=== PATIENT | male | born 1955 | race Two or more races ===

== ENCOUNTER 2017-12-12 20:45 | Inpatient (IN) | payer MEDICAID ==
[~2017-12-12] VITALS: Ht 182.9 cm; Wt 65.6 kg
[~2017-12-12 20:45] MED LIST: GABA300C10 OR; IBUP800T24 OR; INSLANTI SC; INSLISPI SC; LISI2.5T47 PO; SERT-274 PO; SIMV10TA84; TRAM50TA2 OR
[2017-12-12 22:17] LABS: Basophils # (auto) 0.1 uL; Basophils % (auto) 0.7 % (0.0-2.0); Lymphocytes # (auto) 1.2 uL; Red Cell Distribution Width 13.2 % (11.8-14.3); White Blood Cell 11.4 10^3/uL (4.4-10.8)
[2017-12-12 22:19] LABS: Eosinophils # (auto) 0.1 uL; Eosinophils % (auto) 1.2 % (0.0-7.0); Hematocrit 44.1 % (41.0-53.0); Hemoglobin 15.3 g/dL (13.5-17.5); Lymphocytes % (auto) 10.5 % (10.0-50.0); Mean Corpuscular Hemoglobin 34.3 pg (28.0-32.0); Mean Corpuscular Hgb Conc. 34.6 g/dL (32.0-36.0); Mean Corpuscular Volume 99.3 fL (80.0-100.0); Neutrophils % (auto) 78.6 % (37.0-80.0); Platelet Count (auto) 170 10^3/uL (140-450); Red Blood Cells 4.45 10^6/uL (4.5-5.90)
[2017-12-12 22:35] LABS: Albumin 3.5 g/dL (3.4-5.0); Potassium 3.8 mmol/L (3.5-5.1)
[2017-12-12 22:36] LABS: BUN/Creatinine Ratio 20.6
[2017-12-12 22:49] LABS: Bilirubin, Total 0.7 mg/dL (0.2-1.0); Total Protein 7.2 g/dL (6.4-8.2)
[2017-12-13] MEDS ORDERED: MORPHINE SULFATE 4 MG/ML SYR/VIAL IV ONE (00:30)
[2017-12-13] MEDS ORDERED: ONDANSETRON HCL 4 MG/2 ML VIAL IV ONE (00:30)
[2017-12-13] MEDS ORDERED: CEFTRIAXONE SODIUM 2 GM in D5W 5% 50 ML IV ONE (00:30)
[2017-12-13] MEDS ORDERED: SODIUM CHLORIDE 0.9% 1,000 ML IV ONE (00:30)
[2017-12-13] MEDS ORDERED: cefTRIAXone SOD 1,000 MG VL ONE (00:44)
[2017-12-13] MEDS ORDERED: CLINDAMYCIN 900MG IV 50 ML IV ONE (01:30)
[2017-12-13] MEDS ORDERED: DOCUSATE SOD 100 MG CAP PO PRN (01:45)
[2017-12-13] MEDS ORDERED: ONDANSETRON HCL 4 MG/2 ML VIAL IV PRN (01:45)
[2017-12-13] MEDS ORDERED: DEXTROSE (50%) 50ML SYRG IV PRN (01:45)
[2017-12-13] MEDS ORDERED: HYDROcodone-ACET 5/325MG TAB PO PRN (01:45)
[2017-12-13] MEDS ORDERED: TEMAZEPAM 15 MG CAP PO PRN ×2 (01:45→02:30)
[2017-12-13] MEDS ORDERED: ACETAMINOPHEN 325 MG TAB PO PRN ×2 (01:45→02:30)
[2017-12-13] MEDS ORDERED: MORPHINE SULFATE 4 MG/ML SYR/VIAL IV PRN (02:30)
[2017-12-13] MEDS ORDERED: NITROGLYCERIN 0.4 MG SL TAB SL PRN (02:30)
[2017-12-13] MEDS: ACCU-CHEK COMFORT CURVE STRIP VI SCH ×4 (05:56→23:22)
[2017-12-13] MEDS: InsuLIN REG 1unit/0.01ml Soln (100units/ml) SC SCH ×4 (05:56→23:23)
[2017-12-13] MEDS: HYDROcodone-ACET 5/325MG TAB PO PRN (07:49)
[2017-12-13] MEDS: SERTRALINE HCL 50 MG TAB PO SCH (07:49)
[2017-12-13] MEDS: ENOXAPARIN SOD 40 MG/0.4 ML SYRINGE SC SCH (07:49)
[2017-12-13] MEDS: FAMOTIDINE 20 MG TAB PO SCH ×2 (07:49→22:09)
[2017-12-13] MEDS: LISINOPRIL 5 MG TAB PO SCH (07:49)
[2017-12-13] MEDS ORDERED: FAMOTIDINE 20 MG TAB PO SCH (10:00)
[2017-12-13] MEDS ORDERED: LORazepam 2MG/ML-1ML VIAL IV ONE (14:00)
[2017-12-13] MEDS: CLINDAMYCIN 600MG IV 50 ML IV SCH ×2 (14:03→22:08)
[2017-12-13] MEDS: GABAPENTIN 300 MG CAP PO SCH ×2 (14:08→22:09)
[2017-12-13 14:54] LABS: INR 1.08 (0.9-1.15); Partial Thromboplastin Time 35.3 sec (23.78-33.04); Prothrombin Time 11.5 sec (9.27-12.13)
[2017-12-13] MEDS: ONDANSETRON HCL 4 MG/2 ML VIAL IV PRN ×2 (14:57→17:00)
[2017-12-13] MEDS: MORPHINE SULFATE 4 MG/ML SYR/VIAL IV PRN ×2 (14:57→17:00)
[2017-12-13 17:05] VITALS: BP 107/63
[2017-12-13] MEDS ORDERED: LIDOCAINE 1% HCL (LOCAL ANESTH.) INJ 20ML MDV ID ONE (17:15)
[2017-12-13 20:00] VITALS: BP 133/76
[2017-12-13 22:00] VITALS: BP 133/76
[2017-12-13] MEDS ORDERED: INSULIN LANTUS (GLARGINE) 1 /0.01ml (100units/ml) SC SCH (22:00)
[2017-12-13] MEDS: ATORVASTATIN 20 MG TAB PO SCH (22:09)
[2017-12-13 23:37] LABS: Urine Bacteria NONE SEEN /hpf (None Seen); Urine Blood Negative /uL (Negative); Urine Mucus FEW (None Seen); Urine Specific Gravity 1.021 (1.001-1.035); Urine WBC <1 /hpf (0 - 3)
[2017-12-14] VITALS (7 sets, daily range): BP systolic 107–123; BP diastolic 66–73
[2017-12-14] MEDS ORDERED: GABAPENTIN 100 MG CAP ONE (04:31)
[2017-12-14] MEDS: HYDROcodone-ACET 5/325MG TAB PO PRN ×2 (04:39→09:12)
[2017-12-14] MEDS: GABAPENTIN 300 MG CAP PO SCH ×3 (05:56→22:35)
[2017-12-14] MEDS: CLINDAMYCIN 600MG IV 50 ML IV SCH ×3 (05:56→22:35)
[2017-12-14] MEDS: ACCU-CHEK COMFORT CURVE STRIP VI SCH ×3 (05:57→17:46)
[2017-12-14] MEDS: InsuLIN REG 1unit/0.01ml Soln (100units/ml) SC SCH ×3 (06:00→17:46)
[2017-12-14 07:12] LABS: Basophils # (auto) 0.1 uL; Basophils % (auto) 0.7 % (0.0-2.0); Lymphocytes # (auto) 1.3 uL; Mean Corpuscular Hgb Conc. 34.7 g/dL (32.0-36.0); Monocytes # (auto) 1.2 uL; Neutrophils # (auto) 6.9 uL; White Blood Cell 9.5 10^3/uL (4.4-10.8)
[2017-12-14 07:13] LABS: Eosinophils # (auto) 0 uL; Eosinophils % (auto) 0.5 % (0.0-7.0); Hematocrit 40.3 % (41.0-53.0); Lymphocytes % (auto) 13.6 % (10.0-50.0); Mean Corpuscular Hemoglobin 34.1 pg (28.0-32.0); Mean Corpuscular Volume 98.3 fL (80.0-100.0); Monocytes % (auto) 12.9 % (0.0-12.0); Neutrophils % (auto) 72.3 % (37.0-80.0); Platelet Count (auto) 147 10^3/uL (140-450)
[2017-12-14 07:29] LABS: Albumin 2.4 g/dL (3.4-5.0); Calcium 7.6 mg/dL (8.5-10.1); Potassium 3.1 mmol/L (3.5-5.1)
[2017-12-14 07:32] LABS: Bilirubin, Total 0.8 mg/dL (0.2-1.0); Total Protein 5.7 g/dL (6.4-8.2)
[2017-12-14] MEDS ORDERED: LORazepam 2MG/ML-1ML VIAL IV ONE (08:00)
[2017-12-14] MEDS: cefTRIAXone 1GM/50ML D5W 50 ML IV SCH (09:11)
[2017-12-14] MEDS: SERTRALINE HCL 50 MG TAB PO SCH (10:00)
[2017-12-14] MEDS ORDERED: POTASSIUM CHL 20 Meq TABLET PO ONE (10:00)
[2017-12-14] MEDS: FAMOTIDINE 20 MG TAB PO SCH ×2 (10:52→22:38)
[2017-12-14] MEDS: LISINOPRIL 5 MG TAB PO SCH (10:55)
[2017-12-14] MEDS: ENOXAPARIN SOD 40 MG/0.4 ML SYRINGE SC SCH (10:59)
[2017-12-14] MEDS: ONDANSETRON HCL 4 MG/2 ML VIAL IV PRN ×2 (11:20→19:41)
[2017-12-14] MEDS: MORPHINE SULFATE 4 MG/ML SYR/VIAL IV PRN ×2 (11:20→19:42)
[2017-12-14] MEDS: DAKINS QUARTER STR 0.125% (NaHypochlorite) 473 ML TOPICAL SOL TOP SCH (12:00)
[2017-12-14] MEDS ORDERED: MORPHINE SULFATE 4 MG/ML SYR/VIAL IV ONE (13:45)
[2017-12-14] MEDS: ATORVASTATIN 20 MG TAB PO SCH (22:35)
[2017-12-14] MEDS: INSULIN LANTUS (GLARGINE) 1 /0.01ml (100units/ml) SC SCH (22:35)
[2017-12-15] VITALS (7 sets, daily range): BP systolic 104–142; BP diastolic 56–80
[2017-12-15] MEDS: InsuLIN REG 1unit/0.01ml Soln (100units/ml) SC SCH ×4 (01:03→17:33)
[2017-12-15] MEDS: ACCU-CHEK COMFORT CURVE STRIP VI SCH ×4 (01:03→17:30)
[2017-12-15] MEDS: MORPHINE SULFATE 4 MG/ML SYR/VIAL IV PRN ×4 (04:04→21:50)
[2017-12-15] MEDS: GABAPENTIN 300 MG CAP PO SCH ×3 (05:45→21:51)
[2017-12-15] MEDS: CLINDAMYCIN 600MG IV 50 ML IV SCH (05:45)
[2017-12-15] MEDS: SERTRALINE HCL 50 MG TAB PO SCH ×2 (10:00→10:11)
[2017-12-15] MEDS: FAMOTIDINE 20 MG TAB PO SCH ×2 (10:09→21:51)
[2017-12-15] MEDS: LISINOPRIL 5 MG TAB PO SCH (10:10)
[2017-12-15] MEDS: ENOXAPARIN SOD 40 MG/0.4 ML SYRINGE SC SCH (10:10)
[2017-12-15] MEDS: cefTRIAXone 1GM/50ML D5W 50 ML IV SCH (10:11)
[2017-12-15 10:12] LABS: BUN/Creatinine Ratio 23.5; Calcium 8.6 mg/dL (8.5-10.1)
[2017-12-15 10:25] LABS: Potassium 3.5 mmol/L (3.5-5.1)
[2017-12-15] MEDS ORDERED: LIDOCAINE 5% TOPICAL PATCH TOP ONE (10:30)
[2017-12-15] MEDS ORDERED: SODIUM CHLORIDE 0.9% 1,000 ML IV ONE (10:30)
[2017-12-15] MEDS ORDERED: CYCLOBENZAPRINE HCL 10 MG TAB PO PRN (10:30)
[2017-12-15] MEDS ORDERED: HYDROmorphone HCL 2 MG/ML VL IV ONE (11:00)
[2017-12-15] MEDS ORDERED: LEVOFLOXACIN 750MG 150 ML IV ONE (11:00)
[2017-12-15] MEDS: DAKINS QUARTER STR 0.125% (NaHypochlorite) 473 ML TOPICAL SOL TOP SCH (13:50)
[2017-12-15] MEDS: ATORVASTATIN 20 MG TAB PO SCH (21:50)
[2017-12-15] MEDS: INSULIN LANTUS (GLARGINE) 1 /0.01ml (100units/ml) SC SCH (21:51)
[2017-12-16] MEDS: ACCU-CHEK COMFORT CURVE STRIP VI SCH ×5 (00:10→22:43)
[2017-12-16] MEDS: MORPHINE SULFATE 4 MG/ML SYR/VIAL IV PRN ×2 (03:29→09:21)
[2017-12-16 05:00] VITALS: BP 142/80
[2017-12-16] MEDS: InsuLIN REG 1unit/0.01ml Soln (100units/ml) SC SCH ×5 (06:00→22:43)
[2017-12-16] MEDS: GABAPENTIN 300 MG CAP PO SCH ×3 (07:39→22:42)
[2017-12-16 08:23] VITALS: BP 152/77
[2017-12-16] MEDS: LEVOFLOXACIN 750MG 150 ML IV SCH (09:23)
[2017-12-16] MEDS: FAMOTIDINE 20 MG TAB PO SCH ×2 (09:23→22:42)
[2017-12-16] MEDS: DAKINS QUARTER STR 0.125% (NaHypochlorite) 473 ML TOPICAL SOL TOP SCH (09:24)
[2017-12-16] MEDS: ENOXAPARIN SOD 40 MG/0.4 ML SYRINGE SC SCH (09:24)
[2017-12-16] MEDS: LIDOCAINE 5% TOPICAL PATCH TOP SCH (09:24)
[2017-12-16] MEDS ORDERED: LISINOPRIL 5 MG TAB PO SCH (10:00)
[2017-12-16] MEDS: HYDROmorphone HCL 2 MG/ML VL IV PRN ×3 (11:16→22:44)
[2017-12-16] MEDS ORDERED: JANUMET PO SCH (12:00)
[2017-12-16 13:00] VITALS: BP 136/73
[2017-12-16 16:46] VITALS: BP 153/77
[2017-12-16 22:00] VITALS: BP 153/82
[2017-12-16] MEDS: ATORVASTATIN 20 MG TAB PO SCH (22:42)
[2017-12-16] MEDS: INSULIN LANTUS (GLARGINE) 1 /0.01ml (100units/ml) SC SCH (22:43)
[2017-12-17] MEDS: HYDROmorphone HCL 2 MG/ML VL IV PRN ×6 (03:56→21:38)
[2017-12-17 05:42] VITALS: BP 137/77
[2017-12-17] MEDS: InsuLIN REG 1unit/0.01ml Soln (100units/ml) SC SCH ×4 (05:55→23:31)
[2017-12-17] MEDS: GABAPENTIN 300 MG CAP PO SCH ×3 (05:55→21:37)
[2017-12-17] MEDS: ACCU-CHEK COMFORT CURVE STRIP VI SCH ×4 (05:55→23:30)
[2017-12-17 08:56] VITALS: BP 134/74
[2017-12-17] MEDS: SERTRALINE HCL 50 MG TAB PO SCH ×2 (10:00→10:10)
[2017-12-17] MEDS: ENOXAPARIN SOD 40 MG/0.4 ML SYRINGE SC SCH (10:08)
[2017-12-17] MEDS: LISINOPRIL 5 MG TAB PO SCH (10:10)
[2017-12-17] MEDS: DAKINS QUARTER STR 0.125% (NaHypochlorite) 473 ML TOPICAL SOL TOP SCH (10:10)
[2017-12-17] MEDS: FAMOTIDINE 20 MG TAB PO SCH ×2 (10:10→21:37)
[2017-12-17] MEDS: LIDOCAINE 5% TOPICAL PATCH TOP SCH (10:10)
[2017-12-17] MEDS: LEVOFLOXACIN 750MG 150 ML IV SCH (10:10)
[2017-12-17 13:12] VITALS: BP 141/75
[2017-12-17 16:55] VITALS: BP 127/80
[2017-12-17] MEDS: ATORVASTATIN 20 MG TAB PO SCH (21:37)
[2017-12-17 22:05] VITALS: BP 139/77
[2017-12-17] MEDS: INSULIN LANTUS (GLARGINE) 1 /0.01ml (100units/ml) SC SCH (23:30)
[2017-12-18] MEDS: HYDROmorphone HCL 2 MG/ML VL IV PRN ×4 (01:51→17:36)
[2017-12-18 05:57] VITALS: BP 107/58
[2017-12-18] MEDS: InsuLIN REG 1unit/0.01ml Soln (100units/ml) SC SCH ×4 (06:08→23:52)
[2017-12-18] MEDS: GABAPENTIN 300 MG CAP PO SCH ×3 (06:08→21:24)
[2017-12-18] MEDS: ACCU-CHEK COMFORT CURVE STRIP VI SCH ×4 (06:08→23:52)
[2017-12-18 09:42] VITALS: BP 98/64
[2017-12-18] MEDS: SERTRALINE HCL 50 MG TAB PO SCH (10:00)
[2017-12-18] MEDS: DAKINS QUARTER STR 0.125% (NaHypochlorite) 473 ML TOPICAL SOL TOP SCH (10:00)
[2017-12-18] MEDS: LEVOFLOXACIN 750MG 150 ML IV SCH (10:29)
[2017-12-18] MEDS: LIDOCAINE 5% TOPICAL PATCH TOP SCH (10:29)
[2017-12-18] MEDS: ENOXAPARIN SOD 40 MG/0.4 ML SYRINGE SC SCH (10:29)
[2017-12-18] MEDS: LISINOPRIL 5 MG TAB PO SCH (10:30)
[2017-12-18] MEDS: FAMOTIDINE 20 MG TAB PO SCH ×2 (10:31→21:24)
[2017-12-18] MEDS ORDERED: KETOROLAC TROMETH 30 MG/ML 1ML VIAL IV ONE (13:00)
[2017-12-18] MEDS ORDERED: HYDROcodone-ACET 5/325MG TAB PO PRN (13:00)
[2017-12-18 15:50] LABS: Free T3 2.66 pg/mL (2.3-4.2); Free T4 (Free Thyroxine) 1.23 ng/dL (0.89-1.76)
[2017-12-18 17:30] VITALS: BP 134/73
[2017-12-18] MEDS: ATORVASTATIN 20 MG TAB PO SCH (21:24)
[2017-12-18] MEDS: INSULIN LANTUS (GLARGINE) 1 /0.01ml (100units/ml) SC SCH (21:33)
[2017-12-18 22:15] VITALS: BP 144/73
[2017-12-18] MEDS: KETOROLAC TROMETH 30 MG/ML 1ML VIAL IV PRN (23:51)
[2017-12-19 05:03] VITALS: BP 131/70
[2017-12-19] MEDS: ACCU-CHEK COMFORT CURVE STRIP VI SCH ×3 (05:25→18:00)
[2017-12-19] MEDS: InsuLIN REG 1unit/0.01ml Soln (100units/ml) SC SCH ×3 (05:25→18:00)
[2017-12-19] MEDS: GABAPENTIN 300 MG CAP PO SCH ×2 (05:29→14:00)
[2017-12-19] MEDS: HYDROmorphone HCL 2 MG/ML VL IV PRN ×2 (05:58→12:25)
[2017-12-19 07:47] LABS: Albumin 2.1 g/dL (3.4-5.0); Calcium 8.6 mg/dL (8.5-10.1); Potassium 3.7 mmol/L (3.5-5.1)
[2017-12-19 07:51] LABS: Bilirubin, Total 0.6 mg/dL (0.2-1.0); Total Protein 6.4 g/dL (6.4-8.2)
[2017-12-19 08:49] VITALS: BP 135/78
[2017-12-19] MEDS: KETOROLAC TROMETH 30 MG/ML 1ML VIAL IV PRN ×2 (09:26→15:25)
[2017-12-19] MEDS ORDERED: LEVO750T64 PO (09:56)
[2017-12-19] MEDS: DAKINS QUARTER STR 0.125% (NaHypochlorite) 473 ML TOPICAL SOL TOP SCH (10:00)
[2017-12-19] MEDS: LIDOCAINE 5% TOPICAL PATCH TOP SCH (10:00)
[2017-12-19] MEDS ORDERED: ENOXAPARIN SOD 40 MG/0.4 ML SYRINGE SC SCH (10:00)
[2017-12-19] MEDS: SERTRALINE HCL 50 MG TAB PO SCH (10:00)
[2017-12-19] MEDS: LEVOFLOXACIN 750MG 150 ML IV SCH (10:22)
[2017-12-19] MEDS: LISINOPRIL 5 MG TAB PO SCH (10:23)
[2017-12-19] MEDS: FAMOTIDINE 20 MG TAB PO SCH (10:24)
[2017-12-19 11:37] VITALS: BP 135/78
[2017-12-19 16:36] VITALS: BP 125/68
== END 2017-12-19 19:30 | disposition home health service (06) | DRG 380 ==
LOC: ER 20:45 → OVERFLOW 20:46 → CENTRAL 12-13 15:45
PROVIDERS: ADMIT Nurse Practitioner; ATTEND Internal Medicine
PROC: 0HBRXZZ Excision of Toe Nail, External Approach (ICD-10-PCS; principal; 2017-12-13)
PROC: 0JBQ0ZZ Excision of Right Foot Subcutaneous Tissue and Fascia, Open Approach (ICD-10-PCS; 2017-12-13)
DX: E11.621 Type 2 diabetes mellitus with foot ulcer (principal); L97.519 Non-pressure chronic ulcer of other part of right foot with unspecified severity; E11.21 Type 2 diabetes mellitus with diabetic nephropathy; E11.42 Type 2 diabetes mellitus with diabetic polyneuropathy; L03.115 Cellulitis of right lower limb; E11.22 Type 2 diabetes mellitus with diabetic chronic kidney disease; F41.9 Anxiety disorder, unspecified; F15.90 Other stimulant use, unspecified, uncomplicated; R19.7 Diarrhea, unspecified; N18.2 Chronic kidney disease, stage 2 (mild); N28.9 Disorder of kidney and ureter, unspecified; K57.90 Diverticulosis of intestine, part unspecified, without perforation or abscess without bleeding; E78.5 Hyperlipidemia, unspecified; F17.210 Nicotine dependence, cigarettes, uncomplicated; I12.9 Hypertensive chronic kidney disease with stage 1 through stage 4 chronic kidney disease, or unspecified chronic kidney disease; K57.30 Diverticulosis of large intestine without perforation or abscess without bleeding; M20.10 Hallux valgus (acquired), unspecified foot; M21.40 Flat foot [pes planus] (acquired), unspecified foot; M47.896 Other spondylosis, lumbar region; M48.061 Spinal stenosis, lumbar region without neurogenic claudication; N40.0 Benign prostatic hyperplasia without lower urinary tract symptoms; Z53.20 Procedure and treatment not carried out because of patient's decision for unspecified reasons; Z82.49 Family history of ischemic heart disease and other diseases of the circulatory system; Z83.3 Family history of diabetes mellitus; Z79.4 Long term (current) use of insulin; Z79.899 Other long term (current) drug therapy
CPT/HCPCS: 36415; 72148; 73630; 73700; 74177; 78315; 80048; 80053; 81001; 82962; 83036; 84439; 84443; 84481; 85025; 85610; 85652; 85730; 87077; 87186; 87205; 87493; 93925; 96361; 96365; 96375; 97110; 97530; G0378; J0696; J1815; J1885; J1956; J2001; J2405; J3490; J7060

== ENCOUNTER 2018-01-15 23:47 | Emergency (ER) | payer MEDICAID ==
[~2018-01-15] VITALS: Ht 185.4 cm; Wt 65.8 kg
[~2018-01-15 23:47] MED LIST changes: +LEVO750T64 PO; -TRAM50TA2 OR
[2018-01-16 00:40] LABS: Basophils # (auto) 0.1 uL; Basophils % (auto) 0.7 % (0.0-2.0); Eosinophils # (auto) 0.4 uL; Eosinophils % (auto) 4.7 % (0.0-7.0); Hematocrit 46.9 % (41.0-53.0); Hemoglobin 15.6 g/dL (13.5-17.5); Lymphocytes # (auto) 1.6 uL; Lymphocytes % (auto) 19.9 % (10.0-50.0); Mean Corpuscular Hemoglobin 33.1 pg (28.0-32.0); Mean Corpuscular Hgb Conc. 33.2 g/dL (32.0-36.0); Mean Corpuscular Volume 99.8 fL (80.0-100.0); Monocytes # (auto) 0.8 uL; Monocytes % (auto) 9.9 % (0.0-12.0); Neutrophils # (auto) 5.2 uL; Neutrophils % (auto) 64.8 % (37.0-80.0); Nucleated Red Blood Cells % 0.1 %; Platelet Count (auto) 160 10^3/uL (140-450); Red Cell Distribution Width 14.1 % (11.8-14.3)
[2018-01-16 00:59] LABS: Albumin 3.2 g/dL (3.4-5.0); BUN/Creatinine Ratio 26.7; Calcium 8.9 mg/dL (8.5-10.1); Potassium 4.3 mmol/L (3.5-5.1)
[2018-01-16 01:01] LABS: Bilirubin, Total 1.1 mg/dL (0.2-1.0); Total Protein 7.7 g/dL (6.4-8.2)
[2018-01-16] MEDS: HYDROcodone-ACET 10/325MG TAB PO ONE (03:35)
[2018-01-16 04:20] VITALS: BP 147/86
== END 2018-01-16 05:54 | disposition home or self-care (01) ==
LOC: ER 23:48
DX: M47.27 Other spondylosis with radiculopathy, lumbosacral region (principal); E11.621 Type 2 diabetes mellitus with foot ulcer; I10 Essential (primary) hypertension; M19.90 Unspecified osteoarthritis, unspecified site; F17.210 Nicotine dependence, cigarettes, uncomplicated; F12.10 Cannabis abuse, uncomplicated; F15.10 Other stimulant abuse, uncomplicated; I73.9 Peripheral vascular disease, unspecified; Z79.4 Long term (current) use of insulin; Z79.899 Other long term (current) drug therapy
CPT/HCPCS: 36415; 73700; 80053; 85025

== ENCOUNTER 2018-10-14 12:01 | Emergency (ER) | payer MEDICAID ==
[~2018-10-14] VITALS: Ht 175.3 cm; Wt 63.5 kg
[~2018-10-14 12:01] MED LIST changes: -IBUP800T24 OR; -LEVO750T64 PO; -LISI2.5T47 PO; -SIMV10TA84
[2018-10-14] MEDS ORDERED: SODIUM CHLORIDE 0.9% 500 ML IVB ONE (12:07)
[2018-10-14] MEDS ORDERED: MORPHINE SULFATE 4 MG/ML SYR/VIAL IV ONE (12:15)
[2018-10-14] MEDS ORDERED: PROCHLORPERAZINE EDISYLATE 5 MG/ML 2ML VIAL IV ONE (12:15)
[2018-10-14 12:54] LABS: Basophils # (auto) 0.1 uL; Eosinophils # (auto) 0.3 uL; Eosinophils % (auto) 3.9 % (0.0-7.0); Hemoglobin 13.1 g/dL (13.5-17.5); Lymphocytes # (auto) 1.5 uL; Monocytes # (auto) 0.7 uL
[2018-10-14 12:56] LABS: Basophils % (auto) 0.7 % (0.0-2.0); Hematocrit 37.6 % (41.0-53.0); Lymphocytes % (auto) 16.9 % (10.0-50.0); Mean Corpuscular Hgb Conc. 34.8 g/dL (32.0-36.0); Mean Corpuscular Volume 100.5 fL (80.0-100.0); Neutrophils % (auto) 70.5 % (37.0-80.0); Platelet Count (auto) 137 10^3/uL (140-450); Red Blood Cells 3.74 10^6/uL (4.5-5.90); White Blood Cell 8.6 10^3/uL (4.4-10.8)
[2018-10-14 13:20] LABS: Albumin 3.5 g/dL (3.4-5.0); Calcium 9.4 mg/dL (8.5-10.1); Magnesium 2.1 mg/dL (1.6-2.6); Potassium 3.7 mmol/L (3.5-5.1)
[2018-10-14 13:23] LABS: BUN/Creatinine Ratio 20.4
[2018-10-14 13:25] LABS: Bilirubin, Total 0.7 mg/dL (0.2-1.0); Total Protein 7.4 g/dL (6.4-8.2)
[2018-10-14 14:03] VITALS: BP 123/68
== END 2018-10-14 14:34 | disposition home or self-care (01) ==
LOC: ER 12:01 → EDBD 12:01 → ER 14:34
DX: K52.9 Noninfective gastroenteritis and colitis, unspecified (principal); I10 Essential (primary) hypertension; E11.9 Type 2 diabetes mellitus without complications; F17.210 Nicotine dependence, cigarettes, uncomplicated; Z79.4 Long term (current) use of insulin; Z79.899 Other long term (current) drug therapy
CPT/HCPCS: 36415; 74176; 80053; 83690; 83735; 85025; 94761; 96374; 96375; 99284; J0780; J2270

== ENCOUNTER 2018-11-21 09:12 | Inpatient (IN) | payer MEDICAID ==
[~2018-11-21] VITALS: Ht 182.9 cm; Wt 70.2 kg
[2018-11-21] MEDS ORDERED: SODIUM CHLORIDE 0.9% 1,000 ML IV ONE (11:08)
[2018-11-21] MEDS ORDERED: ASPirin 81 mg TAB PO ONE (11:15)
[2018-11-21 11:34] LABS: Basophils # (auto) 0.1 uL; Eosinophils # (auto) 0.6 uL; Eosinophils % (auto) 5.8 % (0.0-7.0); Hemoglobin 13.9 g/dL (13.5-17.5); Lymphocytes # (auto) 2.8 uL; Lymphocytes % (auto) 26.7 % (10.0-50.0); Mean Corpuscular Hemoglobin 34.5 pg (28.0-32.0); Mean Corpuscular Hgb Conc. 35.5 g/dL (32.0-36.0); Mean Corpuscular Volume 97.1 fL (80.0-100.0); Monocytes # (auto) 0.7 uL; Monocytes % (auto) 6.9 % (0.0-12.0); Neutrophils # (auto) 6.2 uL; Neutrophils % (auto) 59.6 % (37.0-80.0); Platelet Count (auto) 158 10^3/uL (140-450); Red Blood Cells 4.02 10^6/uL (4.5-5.90); Red Cell Distribution Width 12.8 % (11.8-14.3); White Blood Cell 10.4 10^3/uL (4.4-10.8)
[2018-11-21 11:47] LABS: Albumin 3.5 g/dL (3.4-5.0); Anion Gap 4 (5-15); Blood Urea Nitrogen 17 mg/dL (7-18); Calcium 9.3 mg/dL (8.5-10.1); Carbon Dioxide 24 mmol/L (21-32); Chloride 112 mmol/L (98-107); Glucose 264 mg/dL (74-106); Magnesium 1.9 mg/dL (1.6-2.6); Potassium 4.4 mmol/L (3.5-5.1); Sodium 140 mmol/L (136-145)
[2018-11-21 11:53] LABS: Alanine Aminotransferase 21 U/L (16-61); Alkaline Phosphatase 205 U/L (45-117); Aspartate Aminotransferase 18 U/L (15-37); BUN/Creatinine Ratio 19.3; Bilirubin, Total 0.5 mg/dL (0.2-1.0); GFR African American 112 mL/min; GFR Non-African American 93 mL/min; Total Protein 7.6 g/dL (6.4-8.2)
[2018-11-21 12:58] LABS: Urine Bacteria FEW /hpf (None Seen); Urine Blood 1+ /uL (Negative); Urine Specific Gravity 1.015 (1.001-1.035); Urine WBC <1 /hpf (0 - 3)
[2018-11-21] MEDS ORDERED: LORazepam 0.5 MG TAB PO ONE (14:30)
[2018-11-21] MEDS ORDERED: cefTRIAXone 1GM/50ML D5W 50 ML IV ONE (15:30)
[2018-11-21] MEDS ORDERED: IOHEXOL 350 MG/ML 100ML IJ ONE (15:34)
[2018-11-21] MEDS ORDERED: SPIRONOLACTONE 25 MG TAB PO ONE (15:45)
[2018-11-21] MEDS ORDERED: FUROSEMIDE 40 MG/4 ML VIAL IV ONE (15:45)
[2018-11-21] MEDS ORDERED: NITROGLYCERIN 0.4 MG SL TAB SL PRN (16:45)
[2018-11-21] MEDS ORDERED: hydrALAZINE HCL 20 MG/ML VL IV PRN (16:45)
[2018-11-21] MEDS ORDERED: ONDANSETRON HCL 4 MG/2 ML VIAL IV PRN (16:45)
[2018-11-21] MEDS ORDERED: MORPHINE SULF INJ 2 MG/ML SYRINGE 1ML IV PRN (16:45)
[2018-11-21] MEDS ORDERED: ACETAMINOPHEN 500 MG TAB PO PRN (16:45)
[2018-11-21] MEDS ORDERED: DEXTROSE (50%) 50ML SYRG IV PRN (17:00)
[2018-11-21] MEDS: ACCU-CHEK COMFORT CURVE STRIP VI SCH ×2 (18:03→22:11)
[2018-11-21] MEDS: InsuLIN REG 1unit/0.01ml Soln (100units/ml) SC SCH ×2 (18:08→22:28)
--- NOTE | 2018-11-21 18:25 | NUR ---
PT ADMITTED TO FLOOR VIA WHEEL CHAIR FROM [facility] PT REPORTS 8/10 CHRONIC PAIN IN BACK FROM PREVIOUS INJURY. PRN PAIN MEDS GIVEN. PT A AND O X 4 AND AMBULATORY. PT REPORTS LBM WAS 11/20/18. PT ORIENTED TO UNIT AND CALL LIGHT. VITALS: HR 79, 02 99, RR 18, T 98.3, BP 139/91. WILL CONTINUE TO MONITOR.
[2018-11-21] MEDS: HYDROcodone-ACET 5/325MG TAB PO PRN (18:39)
[2018-11-21 18:45] VITALS: BP 139/91
[2018-11-21] MEDS: IPRATROPIUM BROM 0.5 MG/2.5ML INH SOL NEB SCH (18:54)
[2018-11-21] MEDS: ALBUTEROL SULF 2.5 MG/0.5ML(0.5%) NEB SOLN NEB SCH (18:54)
[2018-11-21 19:27] VITALS: BP 139/91
--- NOTE | 2018-11-21 19:30 | NUR ---
Opening Shift Note Assumed care of patient. Patient awake and alert. No S/S of distress/SOB or pain. Instructed on POC and to call for assist PRN, will continue to monitor for changes. Bed locked in lowest position and bed rails up x2. Call light within reach.
[2018-11-21] MEDS ORDERED: HYDR-4833 PO (20:33)
[2018-11-21 20:36] VITALS: BP 139/91
[2018-11-21 22:00] VITALS: BP 108/68
[2018-11-21] MEDS: GABAPENTIN 300 MG CAP PO SCH (22:08)
[2018-11-21] MEDS: METOPROLOL TARTRATE 25 MG TAB PO SCH (22:09)
[2018-11-21] MEDS: INSULIN LANTUS (GLARGINE) 1 /0.01ml (100units/ml) SC SCH (22:29)
[2018-11-21] MEDS: MORPHINE SULF INJ 2 MG/ML SYRINGE 1ML IV PRN (22:30)
[2018-11-22] MEDS: HYDROcodone-ACET 5/325MG TAB PO PRN ×2 (04:27→10:37)
[2018-11-22 05:00] VITALS: BP 114/61
[2018-11-22 05:35] LABS: Eosinophils # (auto) 0.6 uL
[2018-11-22 05:36] LABS: Basophils # (auto) 0.2 uL; Basophils % (auto) 1.7 % (0.0-2.0); Eosinophils % (auto) 6.4 % (0.0-7.0); Hematocrit 35.9 % (41.0-53.0); Lymphocytes # (auto) 3.5 uL; Lymphocytes % (auto) 37.3 % (10.0-50.0); Mean Corpuscular Hemoglobin 34.8 pg (28.0-32.0); Mean Corpuscular Hgb Conc. 36.2 g/dL (32.0-36.0); Monocytes # (auto) 0.9 uL; Monocytes % (auto) 9.4 % (0.0-12.0); Neutrophils # (auto) 4.2 uL; Neutrophils % (auto) 45.2 % (37.0-80.0); Nucleated Red Blood Cells % 0.1 %; Platelet Count (auto) 164 10^3/uL (140-450); Red Blood Cells 3.74 10^6/uL (4.5-5.90); Red Cell Distribution Width 13.1 % (11.8-14.3); White Blood Cell 9.3 10^3/uL (4.4-10.8)
[2018-11-22 05:45] LABS: Calcium 8.7 mg/dL (8.5-10.1); Potassium 3.5 mmol/L (3.5-5.1)
[2018-11-22 05:48] LABS: BUN/Creatinine Ratio 22.8
[2018-11-22] MEDS: ACCU-CHEK COMFORT CURVE STRIP VI SCH ×4 (06:28→21:48)
[2018-11-22] MEDS: InsuLIN REG 1unit/0.01ml Soln (100units/ml) SC SCH ×4 (06:28→21:49)
[2018-11-22] MEDS: INSULIN LANTUS (GLARGINE) 1 /0.01ml (100units/ml) SC SCH ×2 (06:29→21:49)
[2018-11-22] MEDS: ALBUTEROL SULF 2.5 MG/0.5ML(0.5%) NEB SOLN NEB SCH ×3 (07:27→19:03)
[2018-11-22] MEDS: IPRATROPIUM BROM 0.5 MG/2.5ML INH SOL NEB SCH ×3 (07:27→19:03)
[2018-11-22 09:00] VITALS: BP 111/85
[2018-11-22] MEDS ORDERED: FUROSEMIDE 20 MG/2 ML VIAL IV SCH (10:00)
[2018-11-22] MEDS: cefTRIAXone 1GM/50ML D5W 50 ML IV SCH (10:33)
[2018-11-22] MEDS: FAMOTIDINE 20 MG TAB PO SCH (10:36)
[2018-11-22] MEDS: GABAPENTIN 300 MG CAP PO SCH ×2 (10:36→21:15)
[2018-11-22] MEDS: LISINOPRIL 10 MG TAB PO SCH (10:37)
[2018-11-22] MEDS: METOPROLOL TARTRATE 25 MG TAB PO SCH ×2 (10:38→21:15)
[2018-11-22 10:58] LABS: Cholesterol 126 mg/dL (< 200); HDL Cholesterol 29 mg/dL (40-59); LDL Cholesterol 82 mg/dL (< 100); Triglycerides 151 mg/dL (< 150)
[2018-11-22] MEDS: AZITHROMYCIN 500MG/ 250ML 250 ML IV SCH (11:14)
[2018-11-22] MEDS: FUROSEMIDE 20 MG/2 ML VIAL IV SCH (11:14)
[2018-11-22] MEDS ORDERED: ALPRAZolam 0.5 MG TAB PO ONE (11:45)
--- NOTE | 2018-11-22 11:55 | NUR ---
PATIENT BROUGHT IN HOME MEDICATIONS, DR ARZOLA AT BEDSIDE REVIEWING THEM. ASKED PT IF WE COULD BRING HOME MEDS TO PHARMACY PER HOSPITAL PROTOCOL, PT REFUSED. PT ANXIOUS, NEW ORDER FOR 0.5 MG XANAX. PT REPORTS HE WANTS A NEW BLOWER AND COMPRESSOR ASSEMBLER OUT PATIENT BECAUSE SHE DOESN'T TELL HIM ANY OF HIS RESULTS. DR ARZOLA INFORMED PT HE CAN ALWAYS REQUEST A NEW BLOWER AND COMPRESSOR ASSEMBLER. REPORTS TO FOLLOW UP WITH DR GRIGGS TOMORROW AND PT IS DISCHARGED.
[2018-11-22 13:00] VITALS: BP 128/71
--- NOTE | 2018-11-22 13:00 | NUR ---
DR PECK FROM [facility] SAW PATIENT. NOTIFIED MD DR ARZOLA IS HAVING PATIENT FOLLOW UP OUT PATIENT WITH DR GRIGGS AND PT IS DISCHARGED. AWARE. ASKED DR PECK IF HE COULD READ ECHO. REPORTS DR TRIANA WILL BE READING THE ECHOS AND THE SYSTEM HAS BEEN DOWN.
--- NOTE | 2018-11-22 14:01 | NUR ---
Called Ivania to see if she could patient info on behavioral health, no answer, left message. Awaiting call back.
[2018-11-22 14:15] VITALS: BP 111/85
--- NOTE | 2018-11-22 14:41 | NUR ---
CALLED PBX AND PAGED DR ARZOLA. REPORTED HE WAS GOING TO WRITE PRESCRIPTION FOR XANAX AND AZITHROMYCIN, BUT NO SCRIPT IN DC PAPERWORK.
--- NOTE | 2018-11-22 16:18 | NUR ---
SPOKE WITH MAIK CHARGE NURSE, SHE REPORTS PATIENT IS REFUSING TO LEAVE BECAUSE, "HE DOESN'T KNOW WHAT'S WRONG WITH HIS HEART." WILL GIVE PRN ANXIETY AND PAIN MEDS. PT REPORTS NO SOB, LAST VITALS WNL. PT REFEREED BACK TO DR BARONE, HIS OWN FOUNDATION ENGINEER. DR ARZOLA CALLED BACK. HE REPORTS HE GAVE PRESCRIPTION TO JULIETH WEST AND IT WAS THEN GIVEN TO DEVELOPER ANALYST. DEVELOPER ANALYST FOUND PRESCRIPTION. DR ARZOLA REPORTS NO PRESCRIPTION FOR XANAX. NOTIFIED MD APPOINTMENT WITH [facility] HAS TO COME THROUGH REFERRAL FROM PRIMARY AND SOONEST APPOINTMENT AVAILABLE WAS 11/28. MD REPORTS PATIENT IS STABLE AND CAN BE DISCHARGED.
[2018-11-22] MEDS: ALPRAZolam 0.25 MG TAB PO PRN (16:41)
[2018-11-22] MEDS: MORPHINE SULF INJ 2 MG/ML SYRINGE 1ML IV PRN ×2 (16:41→21:16)
--- NOTE | 2018-11-22 16:44 | NUR ---
CALLED JUDY TEIXEIRA, NEED SS CONSULT. NO ANSWER, LEFT MESSAGE.
[2018-11-22 17:00] VITALS: BP 129/73
--- NOTE | 2018-11-22 17:29 | NUR ---
RECEIVED MESSAGE TO CALL DR ARZOLA. CALLED MD HAYDEN REPORTS TO HOLD DISCHARGE FOR TODAY, HOOP BENDER TANK NOTIFIED.
--- NOTE | 2018-11-22 19:30 | NUR ---
Opening Shift Note Assumed care of patient. Patient is awake and alert. No S/S of distress/SOB or pain. Instructed on POC and to call for assist PRN, will continue to monitor for changes. Bed locked in lowest position and bed rails up x2. Call light within reach.
[2018-11-22 22:00] VITALS: BP 149/71
[2018-11-23] MEDS: HYDROcodone-ACET 5/325MG TAB PO PRN (02:39)
--- NOTE | 2018-11-23 03:45 | NUR ---
Patient given Xanax. Patient states he feels as though he is "feeling anxious and may be having a panic attack". Patient then mentioned that he prefers Ativan but will settle for a Xanax medication.
[2018-11-23] MEDS: ALPRAZolam 0.25 MG TAB PO PRN ×3 (03:46→20:34)
[2018-11-23 05:00] VITALS: BP 101/66
[2018-11-23] MEDS: ACCU-CHEK COMFORT CURVE STRIP VI SCH ×4 (06:32→22:11)
[2018-11-23] MEDS: INSULIN LANTUS (GLARGINE) 1 /0.01ml (100units/ml) SC SCH ×2 (06:33→22:10)
[2018-11-23] MEDS: InsuLIN REG 1unit/0.01ml Soln (100units/ml) SC SCH ×4 (06:33→22:10)
[2018-11-23] MEDS: IPRATROPIUM BROM 0.5 MG/2.5ML INH SOL NEB SCH ×3 (06:55→20:28)
[2018-11-23] MEDS: ALBUTEROL SULF 2.5 MG/0.5ML(0.5%) NEB SOLN NEB SCH ×3 (06:55→20:28)
--- NOTE | 2018-11-23 07:54 | NUR ---
SAW PATIENT, PATIENT IS SITTING ON EDGE OF BED SPEAKING WITH HIS SISTER. PATIENT APPEARS ANXIOUS. SPOKE WITH PATIENT AND SISTER. PATIENT'S SISTER HANNY REPORTS PATIENT WOULD LIKE A BETTER EXPLANATION OF HIS DIAGNOSIS AND TREATMENT. SHE REPORTS PATIENT IS VERY ANXIOUS AND WANTS TO KNOW IF HE IS DYING OR NEEDS SURGERY. SHE REPORTS SHE WOULD LIKE TO SPEAK WITH DR. ACOSTA SOON SHE IS AVAILABLE. PATIENT REPORTS HE DOESN'T WANT TO SEE DR JUÁREZ AGAIN, HE WOULD LIKE ANOTHER DOCTOR AND FURTHER EXPLANATION OF HIS DIAGNOSIS. EXPLAINED TO HANNY THAT DR ARZOLA HAS PUT PATIENT ON ANTIBIOTICS FOR POSSIBLE PNEUMONIA AND PUT IN A CONSULT FOR DR ACOSTA TO SEE PATIENT AND HELD DISCHARGE. LET HANNY KNOW SHE WOULD BE CALLED SOON DR ACOSTA COMES TO HOSPITAL AND MD WOULD BE NOTIFIED TO CALL HANNY SOON POSSIBLE. SPOKE WITH CHARGE NURSE MAIK, ASKED IF ANOTHER PROVIDER COULD SEE PATIENT PER PATIENT REQUEST. MAIK REPORTS TO ASK DR DHALIWAL WHEN HE COMES IN, WILL CONTINUE TO MONITOR.
--- NOTE | 2018-11-23 08:03 | NUR ---
CHECKED eMAR, PAIN AND ANXIETY MEDICATION ALREADY GIVEN BY CLOTHING WORKER, WILL CONTINUE TO MONITOR.
--- NOTE | 2018-11-23 08:23 | NUR ---
PT REPORTS CHEST AND BACK PAIN 12/06. STAT ECG DONE. ECG SHOWS NSR 78 BPM, ST AND T WAVE ABNORMALITY, CONSIDER LATERAL ISCHEMIA. VITALS: BP 153/80, HR 78, 98.8, RR 18, O2 96. BLOOD BANK SPECIALIST PRESENT TO TAKE VITALS. PT REPORTS HE WANTS TO GO TO THE STORE ACROSS THE [address] TO GET CIGARETTES. EDUCATED PATIENT THE HOSPITAL DOES NOT NOT ADVISE PATIENT TO SMOKE IT IS BAD FOR HIS HEART AND HEALTH, AND AGAINST HOSPITAL POLICY. ASKED PATIENT IF HE WANTED A NICOTINE PATCH, PATIENT AGREED. NOTIFIED PATIENT COULD GIVE PAIN MEDICATION NOW. PATIENT REPORTS NORCO DOESN'T WORK AND REQUESTS MORPHINE. PATIENT REPORTS HE WANTS XANAX AND ATIVAN, BECAUSE JUST XANAX ISN'T WORKING. CALLED PBX AND PAGED DR DHALIWAL TO REQUEST ANOTHER PROVIDER, STRONGER ANXIETY MED AND NICOTINE PATCH, AWAITING CALL BACK. Addendum: 11/23/18 at 1956 by ESTEFANIA PAK RN Pt reports chest pain is the same as he has had since admission, ECG done anyway.
--- NOTE | 2018-11-23 08:40 | NUR ---
PRN MORPHINE GIVEN FOR BACK AND CHEST PAIN /.
[2018-11-23] MEDS: MORPHINE SULF INJ 2 MG/ML SYRINGE 1ML IV PRN ×2 (08:42→17:51)
[2018-11-23 09:00] VITALS: BP 147/89
--- NOTE | 2018-11-23 10:02 | NUR ---
SPOKE WITH CHARGE, CHARGE REPORTS DR DHALIWAL IS NOT HERE TODAY. SHE REPORTS TO SPEAK TO DR BATRES, CALLED PBX AND PAGED DR BATRES. AWAITING CALL BACK.
--- NOTE | 2018-11-23 10:14 | NUR ---
REASSESSED BP, BP 147/89. DR BATRES CALLED BACK AND REPORTS SHE SPOKE WITH DR ARZOLA. DR ARZOLA REPORTS PATIENT IS DISCHARGED. DR BATRES REPORTS DR ARZOLA SAID DR HERNANDEZ WILL SEE PATIENT ON MONDAY. Addendum: 11/23/18 at 1159 by ESTEFANIA PAK RN PAGED DR JUÁREZ TO REPORT CHEST PAIN, AWAITING CALL BACK.
[2018-11-23] MEDS: FUROSEMIDE 20 MG/2 ML VIAL IV SCH (10:24)
[2018-11-23] MEDS: cefTRIAXone 1GM/50ML D5W 50 ML IV SCH (10:25)
[2018-11-23] MEDS: FAMOTIDINE 20 MG TAB PO SCH (10:26)
[2018-11-23] MEDS: GABAPENTIN 300 MG CAP PO SCH ×2 (10:26→22:05)
[2018-11-23] MEDS: METOPROLOL TARTRATE 25 MG TAB PO SCH ×2 (10:26→22:05)
[2018-11-23] MEDS: LISINOPRIL 10 MG TAB PO SCH (10:27)
[2018-11-23] MEDS: AZITHROMYCIN 500MG/ 250ML 250 ML IV SCH (11:46)
--- NOTE | 2018-11-23 12:00 | NUR ---
CHARGE REPORTS DR BATRES WILL SEE PATIENT TODAY AND EXPLAIN DIAGNOSIS.
--- NOTE | 2018-11-23 12:00 | NUR ---
SPOKE WITH MAIK, CHARGE, AND REPORTED DR ARZOLA IS DISCHARGING PATIENT. MAIK REPORTS SHE IS IN A MEETING WITH DR ARZOLA NOW, AND HE REPORTS HE WILL COME SEE PATIENT AND FURTHER EXPLAIN THE PATIENT'S DIAGNOSIS.
--- NOTE | 2018-11-23 12:30 | NUR ---
PATIENT SISTER HANNY CALLED. NOTIFIED HANNY BATRES WILL SEE PATIENT TODAY PER PATIENT REQUEST AND DR VARELA WILL NOT BE SEEING PATIENT TODAY. NOTIFIED HANNY PATIENT IS TO FOLLOW UP WITH DR VARELA ON MONDAY PER DR ARZOLA. HANNY ASKED IF A EXTENSION SERVICE SPECIALIST COULD SEE PATIENT AND EXPLAIN DIAGNOSIS TO PATIENT. HANNY REPORTS SHE WOULD ALSO LIKE TO SPEAK WITH DR SANTOS. LET HANNY KNOW THAT DR ANGUIANO WOULD BE NOTIFIED HANNY WANTS TO SPEAK WITH HER.
[2018-11-23 13:00] VITALS: BP 146/78
--- NOTE | 2018-11-23 13:08 | NUR ---
CALLED DR MCKEON'S OFFICE, LIME BURNER REPORTS SHE CAN PAGE AND HAVE DOCTOR CALL BACK. LIME BURNER REPORTS SHE IS UNABLE TO TAKE DOWN SISTERS NAME AND NUMBER THERE ISN'T ENOUGH SPACE ON THE TEXTING PAGE. LIME BURNER REPORTS SHE WILL CALL BACK.
--- NOTE | 2018-11-23 13:17 | NUR ---
SPOKE WITH DR BATRES, DR BATRES REPORTS SHE EXPLAINED PT DIAGNOSIS AND TREATMENT TO PATIENT. ASKED MD TO CALL PT SISTER. MD REPORTS PATIENT NO LONGER WANTS TO SEE DR MCKEON SO SHE IS GOING TO HAVE DR PECK SEE PATIENT AND READ ECHO. SPOKE WITH PATIENT. PATIENT REPORTS DR BATRES SAW HIM AND HE, "FEELS BETTER NOW THAT HE UNDERSTANDS WHAT'S GOING ON." PT REPORTS PAIN AT IV SITE. ASSESSED IV SITE, SMALL AMOUNT OF EDEMA AND ERYTHEMA NOTED. IV DC'D, PRESSURE DRESSING APPLIED. ASKED CHARGE TO START NEW IV. MAIK REPORTS SHE WILL, WILL CONTINUE TO MONITOR.
--- NOTE | 2018-11-23 13:23 | NUR ---
MAIK ROMERO PATIENT IS SPEAKING WITH BREW HOUSE SUPERVISOR AND REFUSING IV AT THIS TIME. Addendum: 11/23/18 at 1627 by ESTEFANIA PAK RN PT INSTRUCTED URINE SAMPLE NEEDED AND TO USE NURSING LIGHT WHEN READY. PT VERBALIZED UNDERSTANDING, CUP AT BEDSIDE.
--- NOTE | 2018-11-23 14:30 | NUR ---
PT REQUESTS SANDWICH. EDUCATED PATIENT THAT A SANDWICH WOULD INCREASE HIS BLOOD SUGAR. PT REPORTS HE USUALLY TAKES MORE INSULIN AT HOME AND THAT'S WHY HIS SUGAR IS HIGH. DISCOURAGED SANDWICH AGAIN. DR MEDELLIN CALLED BACK, SHE REPORTS SHE DOES NOT WANT TO CALL SISTER SHE SAYS SHE WOULD HAVE TO REVIEW THE PATIENT'S CHART FIRST AND SHE IS NO LONGER IN HER OFFICE. MD REPORTS PT SISTER CAN COME WITH PATIENT TO APPOINTMENT ON MONDAY, WILL CONTINUE TO MONITOR.
--- NOTE | 2018-11-23 14:57 | NUR ---
New IV inserted using sterile technique on second attempt. OFELIA 22 gauge placed. Pt tolerated procedure well, will continue to monitor.
[2018-11-23 16:39] VITALS: BP 142/77
--- NOTE | 2018-11-23 17:04 | NUR ---
DR PECK SAW PATIENT AND EDUCATED PT ON TX OPTIONS WELL DIAGNOSIS. NEW ORDERS FOR ANOTHER ECHO AND DR PECK REQUESTS PATIENT'S RECORDS FROM DR MCKEON. SPOKE WITH SPENCER EARLIER, SHE WAS ALREADY OUT OF OFFICE AND UNABLE TO REVIEW PATIENT RECORDS, WILL ENDORSE.
--- NOTE | 2018-11-23 18:01 | NUR ---
Assessment Pt is a 63 yr old male, alert and oriented. Pt was extremely anxious and frustrated when SW was first in the room with him. Pt was frustrated at the doctor and said that he wanted a new dr. Pt stated that the Dr. told him that there was something wrong with his heart but didnt give him any diagnoses or information on treatment. Pt asked SW if I could convey his frustration to the dr and discuss his situation with him. SW discussed the case with Dr Nesbitt and stated that pt would really like more information on his heart condition. Dr Nesbitt stated that he would take care of it. SW later visited pt and he stated that another came to visit him and he felt appeased by what she had to say. Pt stated that he lives with his son and daughter in law along with his daughter-in laws friend and his 5 children. Pt stated that he feels safe going back to live there and that he has his own room but that he really wants to find a different living situation due to all the noise and the anxiety he feels because of it. Pt is a consistent smoker and hadnt smoked in a couple of days and stated that he is feeling so anxious that he is tempted to walk across the street to get a cigarette. SW asked if pt would be interested in resources to quit smoking, to manage his anxiety and for room and board facilities. Pt agreed to get information on room and board facilities but declined the info for the others. Pt stated that he hadnt slept in a long time and that all the medications that they have given him for anxiety has not been working. Pt stated that he doesnt normally have too many issues with anxiety, just at the hospital when he is uncertain what is wrong with him. Pt is ambulatory and states that he is not in need of DME at this time. Pts Primary is Dr Rao. Pt stated that he is connected with his insurance for transportation home upon d/c. Addendum: 11/23/18 at 1802 by ALINA DONNELLY SS Amended: Links added.
--- NOTE | 2018-11-23 18:03 | NUR ---
Discharge planning per consult, patient has an order for resources for behavioral health. Patient was provided with information for Behavioral Health at [address] [place] [place] [address] , and Crisis Center [place] [address] [place] [address] . Addendum: 11/23/18 at 1805 by DULCE MUHAMMAD Amended: Links added.
[2018-11-23] MEDS: FUROSEMIDE 40 MG/4 ML VIAL IV SCH (18:10)
--- NOTE | 2018-11-23 19:30 | NUR ---
Opening Shift Note Assumed care of patient, awake and alert x4. has some anxiety per patient. Will administer xanax per order. Skin clear. Ambulates around his room often. Complaining of tele monitor. Advised him of the importance of it and MD orders. Verbalized understanding. IV to right upper arm patent and flushed. No S/S of distress/SOB or pain. Instructed on POC and to call for assist PRN, will continue to monitor for changes Q1hr and PRN.Call light within reach
[2018-11-23 21:00] VITALS: BP 136/59
[2018-11-23 21:36] LABS: Alcohol, Urine < 3.0 mg/dL (0-5); Amphetamine Screen, Urine NEGATIVE (NEGATIVE); Barbiturate Scree,Urine NEGATIVE (NEGATIVE); Benzodiazephine Screen, Urine NEGATIVE (NEGATIVE); Cannabinoid Screen, Urine NEGATIVE (NEGATIVE); Cocaine Screen, Urine NEGATIVE (NEGATIVE); Opiate Scree,Urine POSITIVE (NEGATIVE); Phencyclidine Screen, Urine NEGATIVE (NEGATIVE)
[2018-11-24] MEDS: MORPHINE SULF INJ 2 MG/ML SYRINGE 1ML IV PRN ×4 (01:45→20:38)
[2018-11-24] MEDS: HYDROcodone-ACET 5/325MG TAB PO PRN (04:44)
[2018-11-24 04:51] VITALS: BP 105/65
[2018-11-24] MEDS: FUROSEMIDE 40 MG/4 ML VIAL IV SCH ×2 (06:00→18:03)
[2018-11-24] MEDS: InsuLIN REG 1unit/0.01ml Soln (100units/ml) SC SCH ×4 (06:11→22:31)
[2018-11-24] MEDS: IPRATROPIUM BROM 0.5 MG/2.5ML INH SOL NEB SCH ×3 (06:12→18:24)
[2018-11-24] MEDS: ACCU-CHEK COMFORT CURVE STRIP VI SCH ×4 (06:12→22:32)
[2018-11-24] MEDS: ALBUTEROL SULF 2.5 MG/0.5ML(0.5%) NEB SOLN NEB SCH ×3 (06:12→18:24)
[2018-11-24] MEDS: INSULIN LANTUS (GLARGINE) 1 /0.01ml (100units/ml) SC SCH ×2 (06:12→22:31)
--- NOTE | 2018-11-24 06:15 | NUR ---
Patient awake and alert, sitting on the side of his bed. Medicated with morphine per patient request for pain 09/05. Held lasix due to decreased blood pressure 105/65. Insulin given per orders. Patient had requested and received snacks a couple times through out night. Call light within reach.
[2018-11-24 06:17] LABS: Basophils # (auto) 0.1 uL; Basophils % (auto) 1.1 % (0.0-2.0); Eosinophils # (auto) 0.5 uL; Eosinophils % (auto) 7.1 % (0.0-7.0); Hematocrit 36.1 % (41.0-53.0); Hemoglobin 12.4 g/dL (13.5-17.5); Lymphocytes # (auto) 2.8 uL; Lymphocytes % (auto) 36.5 % (10.0-50.0); Mean Corpuscular Hemoglobin 34.4 pg (28.0-32.0); Mean Corpuscular Hgb Conc. 34.4 g/dL (32.0-36.0); Mean Corpuscular Volume 99.9 fL (80.0-100.0); Monocytes # (auto) 0.7 uL; Monocytes % (auto) 8.9 % (0.0-12.0); Neutrophils # (auto) 3.6 uL; Neutrophils % (auto) 46.4 % (37.0-80.0); Nucleated Red Blood Cells % 0.2 %; Platelet Count (auto) 144 10^3/uL (140-450); Red Blood Cells 3.61 10^6/uL (4.5-5.90); White Blood Cell 7.7 10^3/uL (4.4-10.8)
[2018-11-24 06:41] LABS: Albumin 3.5 g/dL (3.4-5.0); Calcium 9.1 mg/dL (8.5-10.1); Potassium 4.1 mmol/L (3.5-5.1)
[2018-11-24 06:44] LABS: BUN/Creatinine Ratio 23.1
[2018-11-24 06:46] LABS: Bilirubin, Total 0.4 mg/dL (0.2-1.0); Total Protein 7.1 g/dL (6.4-8.2)
[2018-11-24 08:00] VITALS: BP 105/64
--- NOTE | 2018-11-24 08:00 | NUR ---
OPENING NOTE ASSUMED CARE OF PATIENT AWAKE AND ALERT. PATIENT IS WANDERING THE HALLS. UPON ASSESSMENT FOUND PATIENT TO BE VERY UNCOOPERATIVE AND DEMANDING. PT IS NONCOMPLIANT WITH DIABETIC DIET, DEMANDING SANDWICHES AND EATING OTHER PATIENT'S FOOD OFF OF THE TRAY CART. PT UPDATED ON POC AND VERBALIZED UNDERSTANDING. MANY QUESTIONS ANSWERED. BED IS IN LOWEST, LOCKED POSITION WITH SIDE RAILS UP X2 AND CALL LIGHT WITHIN REACH.
[2018-11-24] MEDS: ALPRAZolam 0.25 MG TAB PO PRN ×2 (08:27→16:37)
[2018-11-24 08:42] VITALS: BP 110/59
[2018-11-24] MEDS: ENOXAPARIN SOD 40 MG/0.4 ML SYRINGE SC SCH (09:20)
[2018-11-24] MEDS: LISINOPRIL 10 MG TAB PO SCH (09:21)
[2018-11-24] MEDS: METOPROLOL TARTRATE 25 MG TAB PO SCH ×2 (09:21→22:31)
[2018-11-24] MEDS: GABAPENTIN 300 MG CAP PO SCH ×2 (09:21→22:31)
--- NOTE | 2018-11-24 10:10 | NUR ---
AMA TO SMOKE PATIENT REQUESTING TO GO OUTSIDE TO SMOKE. PT EDUCATED ON DANGERS OF SMOKING AND REINFORCED WITH PT HIS ADMITTING DIAGNOSIS. PT VERBALIZED UNDERSTANDING, BUT STILL REQUESTING TO GO OUTSIDE. AMA FORM SIGNED BY PATIENT AND PLACED IN CHART.
--- NOTE | 2018-11-24 11:00 | NUR ---
AT BEDSIDE DR HUERTAS AT BEDSIDE
[2018-11-24 11:56] VITALS: BP 127/70
[2018-11-24 16:30] VITALS: BP 110/69
[2018-11-24 22:00] VITALS: BP 125/72
[2018-11-25] VITALS (8 sets, daily range): BP systolic 96–125; BP diastolic 54–72
[2018-11-25] MEDS: ALPRAZolam 0.25 MG TAB PO PRN ×3 (01:24→23:29)
[2018-11-25] MEDS: IPRATROPIUM BROM 0.5 MG/2.5ML INH SOL NEB SCH ×4 (05:59→18:56)
[2018-11-25] MEDS: ALBUTEROL SULF 2.5 MG/0.5ML(0.5%) NEB SOLN NEB SCH ×4 (05:59→18:57)
--- NOTE | 2018-11-25 06:20 | NUR ---
Paged hospitalist per patient request. Stated " get a doctor up here now!. Im having a panic attack and I need something. " Hunter already given a few hours ago. Removed tele and refusing it at the moment. Refusing his accucheck as well. Advised him to take slow deep breaths, ambulate in the halls a bit. Looks very anxious.
[2018-11-25] MEDS ORDERED: LORazepam 2MG/ML-1ML VIAL IV ONE (06:30)
--- NOTE | 2018-11-25 06:50 | NUR ---
Received call back from Raul Ferrer. New order for ativan x1. Administered to patient and he then let me do his accucheck and give insulin. Wanting his morphine at the same time but norco given instead.
[2018-11-25] MEDS: FUROSEMIDE 40 MG/4 ML VIAL IV SCH ×2 (06:54→18:20)
[2018-11-25] MEDS: InsuLIN REG 1unit/0.01ml Soln (100units/ml) SC SCH ×4 (06:55→23:27)
[2018-11-25] MEDS: ACCU-CHEK COMFORT CURVE STRIP VI SCH ×4 (06:55→22:00)
[2018-11-25] MEDS: INSULIN LANTUS (GLARGINE) 1 /0.01ml (100units/ml) SC SCH ×2 (06:55→22:00)
[2018-11-25] MEDS: HYDROcodone-ACET 5/325MG TAB PO PRN ×2 (06:56→18:28)
[2018-11-25 07:57] LABS: Basophils # (auto) 0.1 uL; Eosinophils # (auto) 0.5 uL; Mean Corpuscular Hemoglobin 35.3 pg (28.0-32.0)
[2018-11-25 07:59] LABS: Eosinophils % (auto) 7.6 % (0.0-7.0); Hematocrit 31.5 % (41.0-53.0); Hemoglobin 11.4 g/dL (13.5-17.5); Lymphocytes # (auto) 2.6 uL; Lymphocytes % (auto) 37.6 % (10.0-50.0); Mean Corpuscular Hgb Conc. 36.3 g/dL (32.0-36.0); Mean Corpuscular Volume 97.4 fL (80.0-100.0); Monocytes # (auto) 0.8 uL; Monocytes % (auto) 11.1 % (0.0-12.0); Neutrophils # (auto) 2.9 uL; Neutrophils % (auto) 42.7 % (37.0-80.0); Platelet Count (auto) 124 10^3/uL (140-450); Red Blood Cells 3.24 10^6/uL (4.5-5.90); Red Cell Distribution Width 12.6 % (11.8-14.3); White Blood Cell 6.8 10^3/uL (4.4-10.8)
[2018-11-25 08:06] LABS: Calcium 8.5 mg/dL (8.5-10.1); Potassium 3.7 mmol/L (3.5-5.1)
[2018-11-25 08:18] LABS: Bilirubin, Total 0.2 mg/dL (0.2-1.0); Total Protein 6.4 g/dL (6.4-8.2)
--- NOTE | 2018-11-25 09:00 | NUR ---
Opening Shift Note Assumed care of patient, awake and alert, eating breakfast at this time. No S/S of distress/SOB or pain. Instructed on POC and to call for assist PRN, bed locked in the lowest position, call light within easy reach, will continue to monitor for changes Q1hr and PRN.
[2018-11-25] MEDS: MORPHINE SULF INJ 2 MG/ML SYRINGE 1ML IV PRN ×3 (09:32→20:50)
[2018-11-25] MEDS: ENOXAPARIN SOD 40 MG/0.4 ML SYRINGE SC SCH (09:33)
[2018-11-25] MEDS: LISINOPRIL 10 MG TAB PO SCH (09:33)
[2018-11-25] MEDS: GABAPENTIN 300 MG CAP PO SCH ×2 (09:34→22:30)
[2018-11-25] MEDS: METOPROLOL TARTRATE 25 MG TAB PO SCH ×2 (09:34→22:30)
--- NOTE | 2018-11-25 14:30 | NUR ---
DR. HUERTAS AT BEDSIDE. NEW ORDER OBTAINED ATIVAN 0.5MG PO Q 8HR PRN FOR ANXIETY. WILL CARRY OUT ORDER.
--- NOTE | 2018-11-25 19:30 | NUR ---
Opening Shift Note Assumed care of patient, resting, easily awakened and alert. Seems much more calm then when i left this am. Will provide sandwich for a snack and crackers per his request. No S/S of distress/SOB. Off shelter monitor at this time. Will notify tele he is refusing at the moment. Says he wants to rest for a bit without it. Skin clear. Instructed on POC and to call for assist PRN, will continue to monitor for changes Q1hr and PRN.
--- NOTE | 2018-11-25 20:30 | NUR ---
Placed tele monitor back on . No distress at this time. Call light within reach
--- NOTE | 2018-11-26 02:30 | NUR ---
Patient calls often for for multiple things (snacks, drinks, meds. ) Will constantly ask what he can have for medicine. When asked what medicine hes referring too or what hes having a problem with he has a difficult time telling me. Just repeats himself stating "what can I have?" Request his xanax, morphine and ativan be given at same time. Unable to give all three due to time constraints and BP running in low 100's. Very talkative and up ambulating in room and halls often throughout night.
[2018-11-26] MEDS: MORPHINE SULF INJ 2 MG/ML SYRINGE 1ML IV PRN ×4 (05:36→22:09)
[2018-11-26] MEDS: FUROSEMIDE 40 MG/4 ML VIAL IV SCH ×3 (06:00→18:15)
[2018-11-26 06:09] LABS: Basophils # (auto) 0.1 uL; Eosinophils # (auto) 0.4 uL; Hemoglobin 11.7 g/dL (13.5-17.5); Lymphocytes # (auto) 1.5 uL; Monocytes # (auto) 0.6 uL; White Blood Cell 5.8 10^3/uL (4.4-10.8)
[2018-11-26 06:13] LABS: Basophils % (auto) 1.1 % (0.0-2.0); Eosinophils % (auto) 7.3 % (0.0-7.0); Hematocrit 32.8 % (41.0-53.0); Lymphocytes % (auto) 26.2 % (10.0-50.0); Mean Corpuscular Hgb Conc. 35.6 g/dL (32.0-36.0); Mean Corpuscular Volume 98.4 fL (80.0-100.0); Monocytes % (auto) 10.5 % (0.0-12.0); Neutrophils # (auto) 3.2 uL; Neutrophils % (auto) 54.9 % (37.0-80.0); Nucleated Red Blood Cells % 0.1 %; Platelet Count (auto) 120 10^3/uL (140-450); Red Blood Cells 3.33 10^6/uL (4.5-5.90); Red Cell Distribution Width 12.8 % (11.8-14.3)
[2018-11-26 06:25] LABS: Chloride 110 mmol/L (98-107); Potassium 4.3 mmol/L (3.5-5.1); Sodium 142 mmol/L (136-145)
[2018-11-26] MEDS: INSULIN LANTUS (GLARGINE) 1 /0.01ml (100units/ml) SC SCH ×2 (06:27→22:12)
[2018-11-26] MEDS: InsuLIN REG 1unit/0.01ml Soln (100units/ml) SC SCH ×4 (06:27→22:12)
[2018-11-26] MEDS: ACCU-CHEK COMFORT CURVE STRIP VI SCH ×4 (06:27→22:12)
[2018-11-26] MEDS: LORazepam 0.5 MG TAB PO PRN ×3 (06:28→23:39)
[2018-11-26 06:33] LABS: Alanine Aminotransferase 26 U/L (16-61); Albumin 2.9 g/dL (3.4-5.0); Anion Gap 9 (5-15); Aspartate Aminotransferase 24 U/L (15-37); BUN/Creatinine Ratio 24.5; Blood Urea Nitrogen 27 mg/dL (7-18); Calcium 8.3 mg/dL (8.5-10.1); Carbon Dioxide 23 mmol/L (21-32); GFR African American 87 mL/min; GFR Non-African American 72 mL/min; Glucose 308 mg/dL (74-106)
[2018-11-26 06:37] LABS: Alkaline Phosphatase 211 U/L (45-117); Bilirubin, Total 0.3 mg/dL (0.2-1.0); Total Protein 6.4 g/dL (6.4-8.2)
--- NOTE | 2018-11-26 07:00 | NUR ---
Patient started getting excited again around 0600. Similar to previous morning. States "im having a panic attack, I need something now!" Ativan given per orders. Instructed on breathing techniques. Room dark and quiet. Uses call light the entire last hour, always states he only wants to see me and will just vent to me every time i go in to see him. Asked the same questions as the previous time I was in the room. Always states " whats wrong with me?, why isnt anyone telling me, whats going on? I go over his POC and explain whats been done since admission etc. He also verbalizes often that hes "fucked up" and he doesnt know why. He can be very non compliant with orders as well as diet. Eating candy at bedside often and constantly asking for sandwiches and snacks. Will place an order for diabetic education. Will endorse to Jaky WEST
[2018-11-26] MEDS: ALBUTEROL SULF 2.5 MG/0.5ML(0.5%) NEB SOLN NEB SCH ×3 (07:11→19:11)
[2018-11-26] MEDS: IPRATROPIUM BROM 0.5 MG/2.5ML INH SOL NEB SCH ×3 (07:11→19:11)
--- NOTE | 2018-11-26 07:30 | NUR ---
RECEIVED REPORT FROM NIGHT NURSE. PATIENT SLEEPING IN BED, NO DISTRESS NOTED. WILL CONTINUE TO MONITOR.
[2018-11-26 09:00] VITALS: BP 138/86
[2018-11-26] MEDS: METOPROLOL TARTRATE 25 MG TAB PO SCH ×2 (10:04→22:04)
[2018-11-26] MEDS: LISINOPRIL 10 MG TAB PO SCH (10:04)
[2018-11-26] MEDS: ENOXAPARIN SOD 40 MG/0.4 ML SYRINGE SC SCH (10:04)
[2018-11-26] MEDS: GABAPENTIN 300 MG CAP PO SCH ×2 (10:04→22:03)
[2018-11-26 13:00] VITALS: BP 136/77
[2018-11-26 17:00] VITALS: BP 159/75
--- NOTE | 2018-11-26 19:35 | NUR ---
Opening Shift Note Assumed care of patient, awake and alert, oriented x 4. On room air with even and unlabored respirations. No S/S of distress or SOB. Patient ambulates and turns in bed independently. Bed low locked position with side rails up x 2 and call light within reach. Instructed on POC and to call for assist PRN, will continue to monitor for changes Q1hr and PRN.
[2018-11-26] MEDS: ALPRAZolam 0.25 MG TAB PO PRN (21:04)
[2018-11-26 21:37] VITALS: BP 131/79
[2018-11-27] MEDS: FUROSEMIDE 40 MG/4 ML VIAL IV SCH (05:28)
[2018-11-27 05:29] VITALS: BP 114/63
[2018-11-27] MEDS: MORPHINE SULF INJ 2 MG/ML SYRINGE 1ML IV PRN ×4 (05:29→22:20)
[2018-11-27] MEDS: ALPRAZolam 0.25 MG TAB PO PRN ×2 (05:39→18:04)
--- NOTE | 2018-11-27 05:45 | NUR ---
EKG done per orders and placed in chart Addendum: 11/27/18 at 0730 by Hermila Mariano RN RN WRONG PATIENT
[2018-11-27] MEDS: ALBUTEROL SULF 2.5 MG/0.5ML(0.5%) NEB SOLN NEB SCH ×3 (05:56→18:40)
[2018-11-27] MEDS: IPRATROPIUM BROM 0.5 MG/2.5ML INH SOL NEB SCH ×3 (05:56→18:40)
[2018-11-27] MEDS: InsuLIN REG 1unit/0.01ml Soln (100units/ml) SC SCH ×4 (06:53→22:25)
[2018-11-27] MEDS: ACCU-CHEK COMFORT CURVE STRIP VI SCH ×4 (06:53→22:17)
[2018-11-27] MEDS: INSULIN LANTUS (GLARGINE) 1 /0.01ml (100units/ml) SC SCH ×2 (06:53→22:26)
--- NOTE | 2018-11-27 07:01 | NUR ---
Closing Note patient resting in bed with even and unlabored respirations, no s/s of distress. Endorsed care to day shift RN
--- NOTE | 2018-11-27 08:37 | NUR ---
Patient requested for another oatmeal. Request sent via Fax to [facility].
[2018-11-27 09:17] VITALS: BP 106/70
[2018-11-27] MEDS: ENOXAPARIN SOD 40 MG/0.4 ML SYRINGE SC SCH (09:47)
[2018-11-27] MEDS: GABAPENTIN 300 MG CAP PO SCH ×2 (09:48→22:16)
[2018-11-27] MEDS: METOPROLOL TARTRATE 25 MG TAB PO SCH ×2 (09:48→22:16)
[2018-11-27] MEDS: LISINOPRIL 10 MG TAB PO SCH (09:48)
--- NOTE | 2018-11-27 10:04 | NUR ---
Patient stated his back pain level at 8/10 at this time. Morphine Sulf Inj 1 mg given for pain as ordered.
--- NOTE | 2018-11-27 11:38 | NUR ---
Patient walking on the hallway, to the elevator. Patient has signed AMA to smoke off unit.
[2018-11-27] MEDS: LORazepam 0.5 MG TAB PO PRN ×2 (11:47→20:04)
--- NOTE | 2018-11-27 11:47 | NUR ---
Patient back to room. Patient stated he's anxious. Ativan PO given for anxiety.
--- NOTE | 2018-11-27 12:21 | NUR ---
NUTRITION ASSESSMENT NOTES Please refer to link notes of nutrition screen form filed under the intervention section of the plan of care for further details. Est. Needs: 2200 kcal to 2550 kcal (30-35 kcal/kgBW), 74 gms to 88 gms pro (1.0-1.2 gms/kgBW). Will continue to monitor pertinent labs and reassess nutrient need prn Thank you. Addendum: 11/27/18 at [address] Amended: Links added.
--- NOTE | 2018-11-27 14:45 | NUR ---
Respiratory note: UNABLE TO GIVE Q6 TREATMENT AT 1200 DUE TO PT WAS NOT IN ROOM. CHECKED 2 DIFFERENT TIMES.
[2018-11-27 15:38] VITALS: BP 106/70
--- NOTE | 2018-11-27 16:00 | NUR ---
JENNA Guthrie said patient will have left heart cath tomorrow, she will put in the orders.
--- NOTE | 2018-11-27 16:47 | NUR ---
Patient stated his back pain level at 9/10 at this time. Morphine Suf
--- NOTE | 2018-11-27 16:47 | NUR ---
Morphine Sulf Inj 1 mg given for pain as ordered.
[2018-11-27 17:18] VITALS: BP 122/70
[2018-11-28 05:53] VITALS: BP 109/62
[2018-11-28] MEDS: MORPHINE SULF INJ 2 MG/ML SYRINGE 1ML IV PRN ×4 (05:55→19:58)
[2018-11-28] MEDS: InsuLIN REG 1unit/0.01ml Soln (100units/ml) SC SCH ×4 (06:10→22:06)
[2018-11-28] MEDS: INSULIN LANTUS (GLARGINE) 1 /0.01ml (100units/ml) SC SCH ×2 (06:10→22:07)
[2018-11-28] MEDS: ACCU-CHEK COMFORT CURVE STRIP VI SCH ×4 (06:10→22:07)
[2018-11-28 06:11] LABS: Neutrophils # (auto) 3.9 uL; White Blood Cell 7.8 10^3/uL (4.4-10.8)
[2018-11-28 06:16] LABS: Basophils # (auto) 0 uL; Basophils % (auto) 0.6 % (0.0-2.0); Eosinophils # (auto) 0.5 uL; Eosinophils % (auto) 6.3 % (0.0-7.0); Hematocrit 33.2 % (41.0-53.0); Lymphocytes # (auto) 2.4 uL; Lymphocytes % (auto) 30.6 % (10.0-50.0); Mean Corpuscular Hemoglobin 35.1 pg (28.0-32.0); Mean Corpuscular Hgb Conc. 36.2 g/dL (32.0-36.0); Mean Corpuscular Volume 96.8 fL (80.0-100.0); Monocytes # (auto) 0.9 uL; Monocytes % (auto) 12.2 % (0.0-12.0); Neutrophils % (auto) 50.3 % (37.0-80.0); Nucleated Red Blood Cells % 0.1 %; Platelet Count (auto) 137 10^3/uL (140-450); Red Blood Cells 3.43 10^6/uL (4.5-5.90); Red Cell Distribution Width 12.9 % (11.8-14.3)
[2018-11-28 06:27] LABS: INR 0.96 (0.9-1.15); Partial Thromboplastin Time 28.5 sec (23.64-32.05)
[2018-11-28 06:33] LABS: BUN/Creatinine Ratio 32.3
--- NOTE | 2018-11-28 06:59 | NUR ---
Closing Note patient awake and alert, on room air with even and unlabored respirations, no s/s of distress. Patient remains NPO. IV intact and patent. Endorsed care to day shift RN.
[2018-11-28] MEDS: IPRATROPIUM BROM 0.5 MG/2.5ML INH SOL NEB SCH ×3 (07:22→19:12)
[2018-11-28] MEDS: ALBUTEROL SULF 2.5 MG/0.5ML(0.5%) NEB SOLN NEB SCH ×3 (07:22→19:12)
--- NOTE | 2018-11-28 07:23 | NUR ---
Respiratory note: PT UP WALKING AROUND IN NO DISTRESS AND NO SHORTNESS OF BREATH. PT REFUSING TREATMENT AT THIS TIME.
--- NOTE | 2018-11-28 08:46 | NUR ---
Telemetry pack at bedside table. Patient in the bathroom.
[2018-11-28 09:00] VITALS: BP 114/81
[2018-11-28] MEDS: LORazepam 0.5 MG TAB PO PRN ×2 (09:08→21:59)
--- NOTE | 2018-11-28 09:08 | NUR ---
Patient stated he's anxious. Hands shaking noted. Ativan PO given for anxiety as ordered.
[2018-11-28] MEDS: GABAPENTIN 300 MG CAP PO SCH ×2 (10:00→21:58)
[2018-11-28] MEDS: ENOXAPARIN SOD 40 MG/0.4 ML SYRINGE SC SCH (10:00)
--- NOTE | 2018-11-28 10:00 | NUR ---
Dr. Jaramillo at bedside. ordered to discontinue the Xanax.
[2018-11-28] MEDS: LISINOPRIL 10 MG TAB PO SCH (10:26)
[2018-11-28] MEDS: METOPROLOL TARTRATE 25 MG TAB PO SCH ×2 (10:26→21:59)
--- NOTE | 2018-11-28 10:50 | NUR ---
Transferred the patient via bed to [facility]. Patient awake, oriented x4, no acute distress noted.
--- NOTE | 2018-11-28 11:05 | NUR ---
Patient's sister Natalia called, asking how long the surgery will be, what's the diagnosis of the patient, who is the doctor. Natalia has high tone of voice. Explained to Natalia that patient is at [facility] for left heart catheterization as per Dr. Blair Méndez, it's not a surgery, I cannot give the diagnosis of the patient over the phone and it has to be the doctor to discuss it, the patient may be at [facility] for at least two hours. Natalia asked what will be the results of the procedure. Explained again to Natalia that I have no answer on what will be the results of the procedure, it will be for the doctor to explain, and I will have to let the patient know if it's okay with him to let a family member know what's the result of his procedure. Natalia said no, that I do not have to ask the patient that she wants to know the results of the procedure. Natalia refused to leave her contact number.
[2018-11-28] MEDS ORDERED: IOHEXOL 350 MG/ML 100ML IJ ONE (11:43)
[2018-11-28] MEDS ORDERED: LIDOCAINE 2%HCL (LOCAL ANESTH.) INJ 20ML MDV ONE (11:43)
[2018-11-28] MEDS ORDERED: ANGIOMAX 250 MG VIAL IV ONE (11:53)
[2018-11-28] MEDS ORDERED: fentaNYL CITRATE 100 MCG/2 ML VL ONE (11:54)
[2018-11-28] MEDS ORDERED: MIDAZOLAM HCL 1MG/1ML-2 ML VIAL ONE (11:54)
[2018-11-28] MEDS ORDERED: SODIUM CHL 0.9% 0 ML ONE (11:54)
--- NOTE | 2018-11-28 12:00 | NUR ---
[id number] Agata called. Patient at [facility].
--- NOTE | 2018-11-28 12:17 | NUR ---
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
[2018-11-28] MEDS ORDERED: HEPARIN SODIUM (PORCINE) 5000 UNITS/ML 1ML VIAL ONE (12:49)
--- NOTE | 2018-11-28 12:56 | NUR ---
[id number]-ybr Agata called again. Made aware no report yet from [facility].
--- NOTE | 2018-11-28 14:08 | NUR ---
Patient back to room post-LHC. Dressing on the right groin clean, dry and intact. Patient to lay flat in bed until 7:30 pm tonight. Patient is aware.
--- NOTE | 2018-11-28 14:10 | NUR ---
Patient's son Nehemiah called asking for the results of the procedure. Explained to son that even though he knows the password, only the doctor can explain the results of the left heart catheterization. Son verbalized "You suck!" Informed the patient of what his son told me over the phone.
[2018-11-28 17:00] VITALS: BP 103/64
--- NOTE | 2018-11-28 19:12 | NUR ---
Respiratory note: AT BEDSIDE FOR TX , PT REFUSING MED NEB TX. PT STATES HE JUST WANTS TO SLEEP. [id number]% ON RA. BS ARE CLEAR DIMINISHED T/O, RT NAME AND PAGER ASSIGNMENT WRITTEN ON PTS ROOM BOARD. WILL CONTINUE TO MONITOR NEEDED.
--- NOTE | 2018-11-28 19:30 | NUR ---
Opening Shift Note Assumed care of patient, awake and alert. No S/S of distress/SOB but c/o pain 12/06, will medicate per md order. Right groin site C/D/I s/p left heart cath. Bed locked in lowest position, side rails upx2, call light within reach. Instructed on POC and to call for assist PRN, will continue to monitor for changes Q1hr and PRN.
[2018-11-28 22:24] VITALS: BP 135/81
[2018-11-29] MEDS: MORPHINE SULF INJ 2 MG/ML SYRINGE 1ML IV PRN ×5 (01:16→21:59)
[2018-11-29 05:22] VITALS: BP 104/60
[2018-11-29] MEDS: ACCU-CHEK COMFORT CURVE STRIP VI SCH ×4 (06:34→21:37)
[2018-11-29] MEDS: InsuLIN REG 1unit/0.01ml Soln (100units/ml) SC SCH ×4 (06:34→21:37)
[2018-11-29] MEDS: INSULIN LANTUS (GLARGINE) 1 /0.01ml (100units/ml) SC SCH ×2 (06:41→21:36)
[2018-11-29] MEDS: IPRATROPIUM BROM 0.5 MG/2.5ML INH SOL NEB SCH ×3 (07:17→19:13)
[2018-11-29] MEDS: ALBUTEROL SULF 2.5 MG/0.5ML(0.5%) NEB SOLN NEB SCH ×3 (07:17→19:12)
--- NOTE | 2018-11-29 08:00 | NUR ---
Opening Shift Note Assumed care of patient, resting with eyes closed; wakes easily to sound/touch. No S/S of distress/SOB or pain. Instructed on POC and to call for assist PRN, will continue to monitor for changes Q1hr and PRN.
[2018-11-29 09:00] VITALS: BP 99/51
[2018-11-29] MEDS: ENOXAPARIN SOD 40 MG/0.4 ML SYRINGE SC SCH (09:41)
[2018-11-29] MEDS: GABAPENTIN 300 MG CAP PO SCH ×2 (09:41→21:35)
[2018-11-29] MEDS: LISINOPRIL 10 MG TAB PO SCH (09:41)
[2018-11-29] MEDS: METOPROLOL TARTRATE 25 MG TAB PO SCH ×2 (09:42→21:35)
[2018-11-29] MEDS: LORazepam 0.5 MG TAB PO PRN ×2 (11:03→19:43)
[2018-11-29 13:00] VITALS: BP 120/73
--- NOTE | 2018-11-29 14:40 | NUR ---
REMOVAL OF TOOTH DR. TIDWELL CAME AND REMOVED PATIENT'S TOOTH. PATIENT WAS AWARE THIS WAS GOING TO BE DONE. PATIENT KEPT GAUZE IN MOUTH AND HELD PRESSURE TO LOCATION WHERE TOOTH WAS TO STOP BLEEDING. PATIENT WAS ADVISED BY DOCTOR NOT TO EAT ANYTHING AT THIS TIME. PATIENT IS CURRENTLY NPO FOR A LIVER U/S PLANNED FOR THIS EVENING.
[2018-11-29 17:26] VITALS: BP 109/67
--- NOTE | 2018-11-29 19:43 | NUR ---
Opening Shift Note Assumed care of patient, awake and alert. No S/S of distress/SOB or pain. Instructed on POC and to call for assist PRN, will continue to monitor for changes Q1hr and PRN.Requested for anxiety med, medicated with lorazepam 0.5mg.p.o one tab.as needed. Patient said his one tooth pulled out today in the bedside.
[2018-11-29 21:39] VITALS: BP 113/59
[2018-11-30] MEDS: MORPHINE SULF INJ 2 MG/ML SYRINGE 1ML IV PRN ×4 (02:17→23:23)
[2018-11-30 05:44] VITALS: BP 113/71
[2018-11-30] MEDS: LORazepam 0.5 MG TAB PO PRN ×2 (05:56→14:13)
[2018-11-30] MEDS: ACCU-CHEK COMFORT CURVE STRIP VI SCH ×4 (06:13→21:17)
[2018-11-30] MEDS: INSULIN LANTUS (GLARGINE) 1 /0.01ml (100units/ml) SC SCH ×2 (06:13→21:36)
[2018-11-30] MEDS: InsuLIN REG 1unit/0.01ml Soln (100units/ml) SC SCH ×4 (06:14→21:36)
[2018-11-30] MEDS: ALBUTEROL SULF 2.5 MG/0.5ML(0.5%) NEB SOLN NEB SCH ×3 (06:50→19:00)
[2018-11-30] MEDS: IPRATROPIUM BROM 0.5 MG/2.5ML INH SOL NEB SCH ×3 (06:51→19:00)
--- NOTE | 2018-11-30 07:26 | NUR ---
Report given to Tete Almeida, patient is resting no distress.
[2018-11-30 09:00] VITALS: BP 120/72
[2018-11-30 09:28] VITALS: BP 113/71
[2018-11-30] MEDS: ENOXAPARIN SOD 40 MG/0.4 ML SYRINGE SC SCH (10:00)
--- NOTE | 2018-11-30 10:10 | NUR ---
Dr. Rao at bedside. explained to patient that he will be transferred to [place], she will call the patient's sister. Dr. Rao made aware of tooth extraction that was done yesterday as per report, patient is ambulatory, with signed AMA to smoke. MD ordered to discontinue Lovenox.
[2018-11-30] MEDS: GABAPENTIN 300 MG CAP PO SCH ×2 (10:18→21:16)
[2018-11-30] MEDS: LISINOPRIL 10 MG TAB PO SCH (10:19)
[2018-11-30] MEDS: METOPROLOL TARTRATE 25 MG TAB PO SCH ×2 (10:19→21:36)
[2018-11-30] MEDS ORDERED: AMOXICILLIN/CLAVUL 875 MG TAB PO ONE (10:45)
--- NOTE | 2018-11-30 11:12 | NUR ---
Della from [place] called asking if patient is on Isolation. Patient is not on Isolation precautions.
--- NOTE | 2018-11-30 12:39 | NUR ---
Transfer: auths auth for [facility] is [id number] auth for facility is [id number]
--- NOTE | 2018-11-30 12:59 | NUR ---
TRANSFER: I have faxed both to [facility] and [facility]. I called [facility] and they have to look at faxed paperwork before they commit to telling me if they have a bed or not
[2018-11-30 13:00] VITALS: BP 124/67
--- NOTE | 2018-11-30 13:35 | NUR ---
Transfer: Pt has been accepted at [facility] but will not be transferred until Monday, [facility] is on will call. ph # to [facility] Transfer Center is [phone] they will not look for a bed until Monday.
--- NOTE | 2018-11-30 13:39 | NUR ---
Transfer: accepting MD at [facility] is Dr. Grace
--- NOTE | 2018-11-30 14:00 | NUR ---
Informed patient that he got accepted at [facility], waiting for bed availability, possible transfer on Monday as per Bat Boy/Girl.
--- NOTE | 2018-11-30 14:13 | NUR ---
Ativan PO given for anxiety.
--- NOTE | 2018-11-30 15:13 | NUR ---
Nutrition Follow-up Notes Wt.: 70.5 kg as of yesterday. Pt's asleep, no immediate family member at bedside during rounds this morning. Pt's no signs of distress noted earlier, currently on Consistent Carb diet with adequate PO intake aeb 90% ave. consumed meals (x6) in last 2.5 days. Noted pt's for active Cardiology consult. Est. Needs: 2200 kcal to 2550 kcal (30-35 kcal/kgBW), 74 gms to 88 gms pro (1.0-1.2 gms/kgBW). Will continue to monitor pertinent labs and reassess nutrient need prn Labs: No new labs since 11/29/18 Gluc 156 H; 11/28/18 Gluc 200 H, Cl 110 H, BUN 27 H, Ca 8.3 L, ALP 211 H, Alb 2.9 L Skin: Kaushal scale 21, low risk, skin intact per blow mold technician. GI: Pt had 1 BM this morning per blow mold technician. PES: Altered nutrition related lab values r/t current/chronic medical condition aeb hyperglycemia, hyperchloremia, elev. BUN, HbA1c,ALP, hypocalcemia and mod hypoalbuminemia Will continue to monitor PO intake, skin status, pertinent labs and weight trend. F/u in 3 to 5 days. Rec.: 1.) Consider Consistent High Carb: 75 gms/meal diet. 2.) Continue close supervision with meals. 3.) If Albumin continues trending down, consider Prostat 1 pkt BID. 4.) Refer to CDE/RD for further nutrition educ. and weight monitoring upon discharge. 5.) Continue current plan of care.
[2018-11-30 17:00] VITALS: BP 119/75
--- NOTE | 2018-11-30 18:30 | NUR ---
Seth Cerna at bedside.
--- NOTE | 2018-11-30 18:34 | NUR ---
Patient stated his back pain level at 10/10 at this time. Morphine Sulf Inj 1 mg given for pain as ordered.
--- NOTE | 2018-11-30 19:49 | NUR ---
Opening Shift Note Assumed care of patient, awake and alert. No S/S of distress/SOB or pain. Instructed on POC and to call for assist PRN, will continue to monitor for changes Q1hr and PRN.
[2018-11-30] MEDS: AMOXICILLIN/CLAVUL 875 MG TAB PO SCH (21:16)
[2018-11-30 22:00] VITALS: BP 144/88
[2018-12-01] MEDS: MORPHINE SULF INJ 2 MG/ML SYRINGE 1ML IV PRN ×3 (04:19→19:46)
[2018-12-01 04:42] VITALS: BP 113/82
[2018-12-01] MEDS: INSULIN LANTUS (GLARGINE) 1 /0.01ml (100units/ml) SC SCH ×2 (06:30→21:47)
[2018-12-01] MEDS: ACCU-CHEK COMFORT CURVE STRIP VI SCH ×4 (06:30→21:46)
[2018-12-01] MEDS: InsuLIN REG 1unit/0.01ml Soln (100units/ml) SC SCH ×4 (06:31→21:47)
[2018-12-01] MEDS: LORazepam 0.5 MG TAB PO PRN ×3 (06:59→21:29)
[2018-12-01] MEDS: HYDROcodone-ACET 5/325MG TAB PO PRN (06:59)
--- NOTE | 2018-12-01 07:10 | NUR ---
Report given to Tete Burnett, patient is resting no distress.
[2018-12-01] MEDS: IPRATROPIUM BROM 0.5 MG/2.5ML INH SOL NEB SCH ×3 (07:14→20:19)
[2018-12-01] MEDS: ALBUTEROL SULF 2.5 MG/0.5ML(0.5%) NEB SOLN NEB SCH ×3 (07:15→20:19)
--- NOTE | 2018-12-01 07:15 | NUR ---
Respiratory note: PT REFUSED MED NEB TX AND ASSESSMENT BY RT.
--- NOTE | 2018-12-01 07:30 | NUR ---
PATIENT RESTING IN BED. RESPIRATIONS EVEN AND UNLABORED. NO S/S OF DISTRESS. WILL CONTINUE TO MONITOR.
--- NOTE | 2018-12-01 08:02 | NUR ---
Patients sister Natalia ([phone]) called and verbalized many concerns regarding her brother wanting no lab draws, higher dose of morphine for pain, and Ativan q8h instead of q8h prn. Explained to her that he needs to be the one to verbalize these issues with his provider when they make rounds this morning. Wanted the incoming house director to call her and when questioned why, she stated that she wanted to explain the same to her. I explained the chain of command and transferred to Lex WEST.
--- NOTE | 2018-12-01 08:10 | NUR ---
SPOKE TO PATIENTS SISTER HANNY. VOICED CONCERNS OVER PAIN MANAGEMENT AND STATED PATIENT WAS TIRED OF BEING POKED BY NEEDLES. INFORMED THAT THIS RN WILL SPEAK TO PATIENT REGARDING CONCERNS.
[2018-12-01 09:00] VITALS: BP 101/55
[2018-12-01] MEDS: METOPROLOL TARTRATE 25 MG TAB PO SCH ×2 (10:00→21:46)
[2018-12-01] MEDS: LISINOPRIL 10 MG TAB PO SCH (10:00)
[2018-12-01] MEDS: GABAPENTIN 300 MG CAP PO SCH ×2 (10:08→21:46)
[2018-12-01] MEDS: AMOXICILLIN/CLAVUL 875 MG TAB PO SCH ×2 (10:08→21:45)
--- NOTE | 2018-12-01 11:30 | NUR ---
PATIENT REFUSING ACCUCHECKS.
[2018-12-01 13:00] VITALS: BP 145/88
--- NOTE | 2018-12-01 15:00 | NUR ---
PATIENT REFUSING ACCUCHECKS. Jennie NAVARRETE.
[2018-12-01 16:55] VITALS: BP 141/83
[2018-12-01 21:59] VITALS: BP 124/88
[2018-12-02] MEDS: MORPHINE SULF INJ 2 MG/ML SYRINGE 1ML IV PRN ×3 (02:33→17:30)
[2018-12-02 05:00] VITALS: BP 117/70
[2018-12-02 05:55] LABS: Basophils # (auto) 0.1 uL; Hemoglobin 12.4 g/dL (13.5-17.5); Monocytes % (auto) 10.5 % (0.0-12.0); Nucleated Red Blood Cells % 0.1 %; Red Blood Cells 3.57 10^6/uL (4.5-5.90); White Blood Cell 9.3 10^3/uL (4.4-10.8)
[2018-12-02 05:59] LABS: Basophils % (auto) 0.9 % (0.0-2.0); Eosinophils # (auto) 0.5 uL; Eosinophils % (auto) 5.8 % (0.0-7.0); Hematocrit 35.4 % (41.0-53.0); Lymphocytes % (auto) 21.7 % (10.0-50.0); Mean Corpuscular Hemoglobin 34.6 pg (28.0-32.0); Mean Corpuscular Hgb Conc. 34.9 g/dL (32.0-36.0); Mean Corpuscular Volume 99.2 fL (80.0-100.0); Neutrophils # (auto) 5.7 uL; Neutrophils % (auto) 61.1 % (37.0-80.0); Platelet Count (auto) 146 10^3/uL (140-450); Red Cell Distribution Width 12.8 % (11.8-14.3)
[2018-12-02 06:19] LABS: Albumin 3.2 g/dL (3.4-5.0); BUN/Creatinine Ratio 24.2; Bilirubin, Total 0.4 mg/dL (0.2-1.0); Calcium 9.1 mg/dL (8.5-10.1); Total Protein 7.2 g/dL (6.4-8.2)
[2018-12-02] MEDS: ACCU-CHEK COMFORT CURVE STRIP VI SCH ×5 (06:39→22:40)
[2018-12-02] MEDS: INSULIN LANTUS (GLARGINE) 1 /0.01ml (100units/ml) SC SCH ×3 (06:40→22:41)
[2018-12-02] MEDS: InsuLIN REG 1unit/0.01ml Soln (100units/ml) SC SCH ×5 (06:40→22:41)
[2018-12-02] MEDS: ALBUTEROL SULF 2.5 MG/0.5ML(0.5%) NEB SOLN NEB SCH ×3 (07:00→19:44)
[2018-12-02] MEDS: IPRATROPIUM BROM 0.5 MG/2.5ML INH SOL NEB SCH ×3 (07:00→19:44)
[2018-12-02] MEDS: LORazepam 0.5 MG TAB PO PRN ×2 (08:27→20:46)
[2018-12-02 09:10] VITALS: BP 144/85
[2018-12-02] MEDS: AMOXICILLIN/CLAVUL 875 MG TAB PO SCH ×2 (10:02→21:14)
[2018-12-02] MEDS: METOPROLOL TARTRATE 25 MG TAB PO SCH ×3 (10:03→22:40)
[2018-12-02] MEDS: LISINOPRIL 10 MG TAB PO SCH (10:03)
[2018-12-02] MEDS: GABAPENTIN 300 MG CAP PO SCH ×3 (10:03→22:40)
[2018-12-02 13:00] VITALS: BP 106/67
[2018-12-02 16:59] VITALS: BP 103/64
[2018-12-02 18:36] VITALS: BP 103/64
--- NOTE | 2018-12-02 18:56 | NUR ---
Transfer Report Attempted Called [facility] at 1828hrs to give report but was told to call back after 1930hrs as the nurses were giving report. Transfer paperwork completed and printed. Patient will keep his Left upper arm IV as he is a difficult stick. Will call in report at 1930hrs.
--- NOTE | 2018-12-02 19:40 | NUR ---
Opening Shift Note Assumed care of patient, awake and alert. No S/S of distress/SOB or pain. Instructed on POC and to call for assist PRN, will continue to monitor for changes Q1hr and PRN. Patient waiting for ambulance to arrive to be transfer.
--- NOTE | 2018-12-02 19:45 | NUR ---
Transfer Report Completed Called [facility] and was able to give a transfer report to the nurse Laila Cheung. Explained the patient's status and pending transportation. Left my name and phone number just in case more was needed. Explained situation to the assistant casino shift manager nurse Josie.
--- NOTE | 2018-12-02 21:15 | NUR ---
Patient refused meds Patient refused his 0 medications except for his antibiotic amoxicillin 875mg. He said, "I rather wait to have the rest of my medications administer in [facility]". I educated the patient on the importance of the medication but he still refused.
[2018-12-02 22:00] VITALS: BP 122/70
--- NOTE | 2018-12-02 22:40 | NUR ---
Patient change his mind and requested his 0 medications. Will follow as requested.
--- NOTE | 2018-12-02 23:08 | NUR ---
MAHOGANY wade arrived to continuous pickling line pickler patient. I gave report to EMT Antionette. The patient had no signs of distress or sob. The patient was alert and oriented times 4. He will continue care with MAHOGANY.
--- NOTE | 2018-12-02 23:15 | NUR ---
Patient officially left the unit on a gurney with two [facility] personal.
== END 2018-12-02 23:15 | disposition short-term general hospital (02) | DRG 192 ==
LOC: EDBD 09:12 → ER 09:20 → TELE 09:21 → TELE-WESTW 18:32
PROVIDERS: ADMIT Internal Medicine; ATTEND Internal Medicine
PROC: 4A023N7 Measurement of Cardiac Sampling and Pressure, Left Heart, Percutaneous Approach (ICD-10-PCS; principal; 2018-11-28)
PROC: B2111ZZ Fluoroscopy of Multiple Coronary Arteries using Low Osmolar Contrast (ICD-10-PCS; 2018-11-28)
PROC: B2151ZZ Fluoroscopy of Left Heart using Low Osmolar Contrast (ICD-10-PCS; 2018-11-28)
DX: I13.0 Hypertensive heart and chronic kidney disease with heart failure and stage 1 through stage 4 chronic kidney disease, or unspecified chronic kidney disease (principal); J96.00 Acute respiratory failure, unspecified whether with hypoxia or hypercapnia; J18.1 Lobar pneumonia, unspecified organism; N17.9 Acute kidney failure, unspecified; I50.43 Acute on chronic combined systolic (congestive) and diastolic (congestive) heart failure; E11.21 Type 2 diabetes mellitus with diabetic nephropathy; E11.42 Type 2 diabetes mellitus with diabetic polyneuropathy; E11.22 Type 2 diabetes mellitus with diabetic chronic kidney disease; E11.65 Type 2 diabetes mellitus with hyperglycemia; I35.9 Nonrheumatic aortic valve disorder, unspecified; Z79.4 Long term (current) use of insulin; G89.29 Other chronic pain; F41.9 Anxiety disorder, unspecified; B19.20 Unspecified viral hepatitis C without hepatic coma; N18.9 Chronic kidney disease, unspecified; E11.51 Type 2 diabetes mellitus with diabetic peripheral angiopathy without gangrene; I71.2 Thoracic aortic aneurysm, without rupture; F17.210 Nicotine dependence, cigarettes, uncomplicated; F41.0 Panic disorder [episodic paroxysmal anxiety]; I25.10 Atherosclerotic heart disease of native coronary artery without angina pectoris; I35.0 Nonrheumatic aortic (valve) stenosis; I70.0 Atherosclerosis of aorta; M19.90 Unspecified osteoarthritis, unspecified site; K04.7 Periapical abscess without sinus; Z79.899 Other long term (current) drug therapy; Z80.1 Family history of malignant neoplasm of trachea, bronchus and lung; Z82.49 Family history of ischemic heart disease and other diseases of the circulatory system; Z82.61 Family history of arthritis; Z83.3 Family history of diabetes mellitus; Z85.118 Personal history of other malignant neoplasm of bronchus and lung; Z86.73 Personal history of transient ischemic attack (TIA), and cerebral infarction without residual deficits
CPT/HCPCS: 36415; 36600; 71045; 71046; 71250; 71275; 76705; 80048; 80053; 80061; 80307; 81001; 82805; 82962; 83036; 83735; 83880; 84443; 84484; 85025; 85379; 85576; 85610; 85730; 86803; 86850; 86900; 86901; 87040; 93005; 93306; 93458; 93926; 94640; 94761; 96361; 96365; 96366; 96367; C1751; G0378; J0696; J1815; J2250

== ENCOUNTER 2019-09-03 11:18 | Inpatient (IN) | payer MEDICARE, MEDICAID ==
[~2019-09-03] VITALS: Ht 182.9 cm; Wt 58.1 kg
[~2019-09-03 11:18] MED LIST changes: +HYDR-4833 PO
[2019-09-03] MEDS ORDERED: DexAMETHasone SOD PHOS 10MG/1ML VIAL INJ IV ONE (11:30)
[2019-09-03] MEDS ORDERED: AZITHROMYCIN 500MG/ 250ML 250 ML IV ONE (11:30)
[2019-09-03] MEDS ORDERED: cefTRIAXone 1GM/50ML D5W 50 ML IV ONE (11:30)
[2019-09-03] MEDS ORDERED: FUROSEMIDE 20 MG/2 ML VIAL IV ONE (11:45)
[2019-09-03] MEDS ORDERED: ASCORBIC ACID 500 MG TAB PO ONE (11:45)
[2019-09-03] MEDS ORDERED: ZINC SULFATE 220mg CAP or TAB PO ONE (11:45)
[2019-09-03] MEDS ORDERED: ONDANSETRON HCL 4 MG/2 ML VIAL IV ONE (11:45)
[2019-09-03] MEDS ORDERED: ACETAMINOPHEN 325 MG TAB PO ONE (12:00)
[2019-09-03 12:39] LABS: Basophils # (auto) 0 10 ^3/uL (0-0.2); Basophils % (auto) 0.2 % (0.0-2.0); Eosinophils # (auto) 0 10 ^3/uL (0-0.8); Hematocrit 43.7 % (41.0-53.0); Lymphocytes # (auto) 0.6 10 ^3/uL (0.4-5.4); Mean Corpuscular Hemoglobin 31.4 pg (28.0-32.0); Mean Corpuscular Hgb Conc. 34.3 g/dL (32.0-36.0); Mean Corpuscular Volume 91.6 fL (80.0-100.0); Monocytes # (auto) 0.3 10 ^3/uL (0-1.3); Monocytes % (auto) 5.9 % (0.0-12.0); Neutrophils # (auto) 4.6 10 ^3/uL (1.6-8.6); Neutrophils % (auto) 82.9 % (37.0-80.0); Nucleated Red Blood Cells % 0.8 %; Platelet Count (auto) 118 10^3/uL (140-450); Red Blood Cells 4.77 10^6/uL (4.5-5.90); Red Cell Distribution Width 14.1 % (11.8-14.3); White Blood Cell 5.6 10^3/uL (4.4-10.8)
[2019-09-03 12:55] LABS: Partial Thromboplastin Time 32.4 sec (23.64-32.05)
[2019-09-03 13:02] LABS: Albumin 2.9 g/dL (3.4-5.0); Anion Gap 11 (5-15); Blood Urea Nitrogen 18 mg/dL (7-18); Calcium 8.6 mg/dL (8.5-10.1); Carbon Dioxide 21 mmol/L (21-32); Chloride 103 mmol/L (98-107); Glucose 280 mg/dL (74-106); Potassium 3.1 mmol/L (3.5-5.1); Sodium 135 mmol/L (136-145)
[2019-09-03 13:04] LABS: Alanine Aminotransferase 16 U/L (16-61); Aspartate Aminotransferase 38 U/L (15-37); BUN/Creatinine Ratio 13.3; GFR African American 68 mL/min; GFR Non-African American 56 mL/min
[2019-09-03 13:09] LABS: Alkaline Phosphatase 219 U/L (45-117); Bilirubin, Total 0.6 mg/dL (0.2-1.0); Lactate Dehydrogenase 525 U/L (87-241)
[2019-09-03 13:26] LABS: CRP High Sensitivity 7.61 mg/dL (< 0.3)
[2019-09-03 14:44] LABS: Urine Bacteria NONE SEEN /hpf (None Seen); Urine Blood 1+ /uL (Negative); Urine Hyaline Cast MOD /lpf (0 - 2); Urine Specific Gravity 1.017 (1.001-1.035); Urine WBC 5 /hpf (0 - 3)
[2019-09-03] MEDS ORDERED: SODIUM CHLORIDE 0.9% 1,000 ML IV SCH (14:46)
[2019-09-03] MEDS ORDERED: POTASSIUM EFFERVESENT TAB 25 MEQ PO ONE (15:00)
[2019-09-03] MEDS ORDERED: ONDANSETRON HCL 4 MG/2 ML VIAL IV PRN (15:00)
[2019-09-03] MEDS ORDERED: ACETAMINOPHEN 500 MG TAB PO PRN (15:00)
[2019-09-03] MEDS ORDERED: cloNIDine HCL 0.1 MG TAB PO PRN (15:00)
[2019-09-03] MEDS ORDERED: FAMOTIDINE (10MG/ML) 2ML VL IV ONE (15:00)
[2019-09-03] MEDS ORDERED: POTASSIUM CHL 20MEQ/100ML 100 ML IV ONE (15:00)
[2019-09-03] MEDS ORDERED: LORazepam 0.5 MG TAB PO PRN (15:00)
[2019-09-03] MEDS ORDERED: MORPHINE SULF INJ 2 MG/ML SYRINGE 1ML IV PRN (15:00)
[2019-09-03] MEDS ORDERED: DEXTROSE (50%) 50ML SYRG IV PRN (15:00)
[2019-09-03] MEDS ORDERED: NITROGLYCERIN 0.4 MG SL TAB SL PRN (15:00)
[2019-09-03] MEDS ORDERED: GABA800T97 PO (16:45)
[2019-09-03] MEDS ORDERED: ASPI325T25 PO (16:45)
[2019-09-03] MEDS ORDERED: ASPI325T4 PO (16:45)
[2019-09-03] MEDS ORDERED: METO25TA93 PO (16:45)
[2019-09-03 16:46] LABS: Cholesterol 136 mg/dL (< 200)
[2019-09-03] MEDS ORDERED: HYDR-4833 PO ×2 (16:46→18:14)
[2019-09-03] MEDS ORDERED: INSU1INJ19 SC (16:47)
[2019-09-03] MEDS ORDERED: INSREG3 SC (16:48)
[2019-09-03 16:49] LABS: HDL Cholesterol 31 mg/dL (40-59); LDL Cholesterol 84 mg/dL (< 100); Triglycerides 175 mg/dL (< 150)
[2019-09-03] MEDS ORDERED: ENOXAPARIN SOD 80 MG/0.8ML SYRINGE SC ONE (17:15)
[2019-09-03 17:23] LABS: Amphetamine Screen, Urine NEGATIVE (NEGATIVE); Barbiturate Scree,Urine NEGATIVE (NEGATIVE); Benzodiazephine Screen, Urine NEGATIVE (NEGATIVE); Cannabinoid Screen, Urine POSITIVE (NEGATIVE); Cocaine Screen, Urine NEGATIVE (NEGATIVE); Opiate Scree,Urine POSITIVE (NEGATIVE); Phencyclidine Screen, Urine NEGATIVE (NEGATIVE)
[2019-09-03] MEDS: FUROSEMIDE 20 MG/2 ML VIAL IV SCH (17:54)
[2019-09-03] MEDS: ACCU-CHEK COMFORT CURVE STRIP VI SCH ×2 (17:54→23:08)
[2019-09-03] MEDS ORDERED: InsuLIN REG 1unit/0.01ml Soln (100units/ml) ONE (17:59)
[2019-09-03] MEDS: INSULIN LISPRO (HUMAN) 100 UNITS/ML ML SC SCH (18:03)
[2019-09-03] MEDS: InsuLIN REG 1unit/0.01ml Soln (100units/ml) SC SCH ×2 (18:03→23:07)
[2019-09-03] MEDS ORDERED: ESCI10TA53 PO (18:14)
--- NOTE | 2019-09-03 18:14 | NUR ---
received report from SHIV Beal.
--- NOTE | 2019-09-03 18:35 | NUR ---
Telemetry admit from [facility] MONTANEZ admitted to Telemetry unit after SBAR received. Patient oriented to TINO GUARDADO primary RN, unit, room, bed, and unit policies regarding patient care and visiting hours. Patient now on continuous telemetry monitoring, tele box # 24 and telemetry reading on arrival to unit is [facility]. Patient weighed by bedscale and encouraged to call if they need something. All questions and concerns addressed, patient verbalized understanding.
--- NOTE | 2019-09-03 19:25 | NUR ---
End of shift note Endorsed care to NOC JENNA Colin. RN aware of patients pain.
--- NOTE | 2019-09-03 19:35 | NUR ---
Opening Shift Note Assumed care of patient, awake and alert x4. Patient denies pain or shortness of breath at this time. No sign/symptoms of distress noted or verbalized at this time. Instructed on plan of care and to call for assistance as needed, patient verbalized understanding. Bed is locked in lowest position, side rails x 2 are up, call light is within reach, and bed alarm is on.
[2019-09-03 20:26] VITALS: BP 151/80
[2019-09-03] MEDS: ALBUTEROL SULF HFA 90MCG INH 200DOSE IN SCH (21:06)
--- NOTE | 2019-09-03 21:07 | NUR ---
MDI ADMINISTERED AT THIS TIME WITH HOLDING CHAMBER ATTACHMENT.
[2019-09-03 22:33] VITALS: BP 117/76
[2019-09-03] MEDS: GABAPENTIN 300 MG CAP PO SCH (22:45)
[2019-09-03] MEDS: ATORVASTATIN 20 MG TAB PO SCH (22:45)
[2019-09-03] MEDS: HYDROcodone-ACET 5/325MG TAB PO PRN (22:46)
[2019-09-03] MEDS: DexAMETHasone 4 MG TAB PO SCH (22:47)
[2019-09-03] MEDS: DOXYCYCLINE 100MG/250ML 250 ML IV SCH (22:49)
[2019-09-03] MEDS: ENOXAPARIN SOD 80 MG/0.8ML SYRINGE SC SCH (22:50)
[2019-09-03] MEDS: INSULIN LANTUS (GLARGINE) 1 /0.01ml (100units/ml) SC SCH (23:07)
[2019-09-03] MEDS: FAMOTIDINE (10MG/ML) 2ML VL IV SCH (23:13)
[2019-09-04 00:09] LABS: Lactic Acid w/Reflex 3.1 mmol/L (0.4-2.0)
[2019-09-04 05:21] VITALS: BP 114/72
[2019-09-04 06:00] LABS: Basophils # (auto) 0 10 ^3/uL (0-0.2); Basophils % (auto) 0.1 % (0.0-2.0); Eosinophils # (auto) 0 10 ^3/uL (0-0.8); Hematocrit 43.9 % (41.0-53.0); Hemoglobin 15.3 g/dL (13.5-17.5); Lymphocytes # (auto) 0.7 10 ^3/uL (0.4-5.4); Lymphocytes % (auto) 10.6 % (10.0-50.0); Mean Corpuscular Hemoglobin 31.9 pg (28.0-32.0); Mean Corpuscular Hgb Conc. 34.8 g/dL (32.0-36.0); Mean Corpuscular Volume 91.7 fL (80.0-100.0); Monocytes # (auto) 0.3 10 ^3/uL (0-1.3); Monocytes % (auto) 4.5 % (0.0-12.0); Neutrophils # (auto) 5.6 10 ^3/uL (1.6-8.6); Neutrophils % (auto) 84.8 % (37.0-80.0); Nucleated Red Blood Cells % 0.2 %; Platelet Count (auto) 139 10^3/uL (140-450); Red Blood Cells 4.79 10^6/uL (4.5-5.90); Red Cell Distribution Width 13.7 % (11.8-14.3); White Blood Cell 6.6 10^3/uL (4.4-10.8)
[2019-09-04 06:25] LABS: Albumin 2.8 g/dL (3.4-5.0); Calcium 8.3 mg/dL (8.5-10.1); Potassium 3.7 mmol/L (3.5-5.1)
[2019-09-04] MEDS: GABAPENTIN 300 MG CAP PO SCH ×3 (06:36→21:40)
[2019-09-04] MEDS: FUROSEMIDE 20 MG/2 ML VIAL IV SCH (06:36)
[2019-09-04] MEDS: ACCU-CHEK COMFORT CURVE STRIP VI SCH ×4 (06:36→22:47)
[2019-09-04] MEDS: InsuLIN REG 1unit/0.01ml Soln (100units/ml) SC SCH ×4 (06:37→22:46)
[2019-09-04] MEDS: INSULIN LISPRO (HUMAN) 100 UNITS/ML ML SC SCH ×3 (06:38→17:00)
[2019-09-04 06:39] LABS: BUN/Creatinine Ratio 21.7; Bilirubin, Total 0.4 mg/dL (0.2-1.0); CRP High Sensitivity 7.42 mg/dL (< 0.3); Phosphorus 3.1 mg/dL (2.5-4.90); Total Protein 7.8 g/dL (6.4-8.2)
[2019-09-04] MEDS: ALBUTEROL SULF HFA 90MCG INH 200DOSE IN SCH ×3 (07:00→22:12)
--- NOTE | 2019-09-04 07:00 | NUR ---
Respiratory note: PT IS RESTING COMFORTABLY. NO RESPIRATORY DISTRESS NOTED. SPO2 92% ON RA, HR 73, RR 18, BS CLEAR/DIMINISHED BILATERALLY. 1 PUFF ALBUTEROL (90MCG) GIVEN VIA MDI WITH CHAMBER. NO ADVERSE EFFECTS NOTED. NO FURTHER RESPIRATORY INTERVENTIONS INDICATED. CHARTING COMPLETE FROM OUTSIDE OF PT ROOM DUE TO COVID-19 PRECAUTIONS/PROTOCOL.
[2019-09-04] MEDS: ZINC SULFATE 220mg CAP or TAB PO SCH (09:12)
[2019-09-04] MEDS: DexAMETHasone 4 MG TAB PO SCH ×2 (09:12→21:39)
[2019-09-04] MEDS: ASPirin 81 mg TAB PO SCH (09:12)
[2019-09-04] MEDS: DOXYCYCLINE 100MG/250ML 250 ML IV SCH ×2 (09:12→22:45)
[2019-09-04] MEDS: FAMOTIDINE (10MG/ML) 2ML VL IV SCH (09:12)
[2019-09-04] MEDS: ENOXAPARIN SOD 80 MG/0.8ML SYRINGE SC SCH (09:13)
[2019-09-04] MEDS: CHOLECALCIFEROL (VITD3) 1,000UNIT=25mCg TAB PO SCH (09:13)
[2019-09-04] MEDS: SERTRALINE HCL 50 MG TAB PO SCH (09:13)
[2019-09-04] MEDS: ASCORBIC ACID 1,000 MG TAB PO SCH (10:00)
[2019-09-04] MEDS ORDERED: ENOXAPARIN SOD 40 MG/0.4 ML SYRINGE SC SCH (10:00)
[2019-09-04] MEDS ORDERED: POTASSIUM CHL 20 Meq TABLET PO SCH (10:00)
[2019-09-04] MEDS: METOPROLOL SUCCINATE XL 50 MG TAB PO SCH (10:00)
[2019-09-04 11:02] LABS: INR 1.04 (0.9-1.15); Partial Thromboplastin Time 42.4 sec (23.64-32.05)
[2019-09-04 11:08] VITALS: BP 113/62
[2019-09-04] MEDS ORDERED: SODIUM CHLORIDE 0.9% 1,000 ML IV ONE (12:45)
[2019-09-04] MEDS ORDERED: cefTRIAXone 1GM/50ML D5W 50 ML IV ONE (12:45)
[2019-09-04 13:00] VITALS: BP 135/80
[2019-09-04] MEDS: HYDROcodone-ACET 5/325MG TAB PO PRN (13:45)
[2019-09-04] MEDS: LORazepam 0.5 MG TAB PO PRN (14:00)
--- NOTE | 2019-09-04 14:00 | NUR ---
Respiratory note: NO RESPIRATORY DISTRESS NOTED. SPO2 97% ON 3LNC, HR 82, RR 18, BS CLEAR/DIMINISHED BILATERALLY. 1 PUFF ALBUTEROL (90MCG) GIVEN VIA MDI WITH CHAMBER. NO ADVERSE EFFECTS NOTED. NO FURTHER RESPIRATORY INTERVENTIONS INDICATED. CHARTING COMPLETE FROM OUTSIDE OF PT ROOM DUE TO COVID-19 PRECAUTIONS/PROTOCOL.
[2019-09-04 17:00] VITALS: BP 116/70
[2019-09-04] MEDS: LOPERAMIDE HCL 2 MG CAP PO PRN (19:37)
--- NOTE | 2019-09-04 20:00 | NUR ---
Opening Shift Note Assumed care of patient. Awake, alert and oriented x4. No S/S of distress/SOB or pain. Instructed on POC and to call for assist PRN. Bed locked, in lowest position, call light within reach, side rails up x2. Will continue to monitor for changes Q1hr and PRN.
[2019-09-04] MEDS: cefTRIAXone 1GM/50ML D5W 50 ML IV SCH (21:39)
[2019-09-04] MEDS: ATORVASTATIN 20 MG TAB PO SCH (21:40)
[2019-09-04] MEDS: ENOXAPARIN SOD 60 MG/0.6 ML SYRINGE SC SCH (21:40)
[2019-09-04 22:00] VITALS: BP 130/79
[2019-09-04] MEDS: INSULIN LANTUS (GLARGINE) 1 /0.01ml (100units/ml) SC SCH (22:47)
--- NOTE | 2019-09-05 01:40 | NUR ---
Nursing Note IV dislodged. Pt stated that he got up and the IV got caught and pulled out. Pt is becoming more confused and doesn't know where he is or why he is here. O2 sat is 96% on room air. Changed bedding due to blood from the dislodged IV. Settled pt in bed and placed on bed alarm. Will attempt new IV in the AM. Will continue to monitor patient Q1hr and PRN
[2019-09-05 05:00] VITALS: BP 140/70
[2019-09-05] MEDS: GABAPENTIN 300 MG CAP PO SCH ×3 (06:32→22:15)
[2019-09-05] MEDS: ACCU-CHEK COMFORT CURVE STRIP VI SCH ×3 (06:33→17:00)
[2019-09-05] MEDS: INSULIN LISPRO (HUMAN) 100 UNITS/ML ML SC SCH ×3 (06:37→17:56)
[2019-09-05] MEDS: InsuLIN REG 1unit/0.01ml Soln (100units/ml) SC SCH ×3 (06:38→17:52)
--- NOTE | 2019-09-05 06:39 | NUR ---
Nursing note Told patient he needed a new IV placed. Patient refused. Educated the patient on the need for the IV. Patient still refused. Will endorse to day shift RN.
[2019-09-05 07:11] LABS: Basophils # (auto) 0 10 ^3/uL (0-0.2); Eosinophils # (auto) 0 10 ^3/uL (0-0.8); Hematocrit 37.7 % (41.0-53.0); Lymphocytes # (auto) 0.4 10 ^3/uL (0.4-5.4); Lymphocytes % (auto) 3.4 % (10.0-50.0); Mean Corpuscular Hemoglobin 31.4 pg (28.0-32.0); Mean Corpuscular Hgb Conc. 34.5 g/dL (32.0-36.0); Mean Corpuscular Volume 91.1 fL (80.0-100.0); Monocytes # (auto) 0.3 10 ^3/uL (0-1.3); Monocytes % (auto) 2.3 % (0.0-12.0); Neutrophils # (auto) 11.6 10 ^3/uL (1.6-8.6); Neutrophils % (auto) 94.3 % (37.0-80.0); Platelet Count (auto) 138 10^3/uL (140-450); Red Blood Cells 4.13 10^6/uL (4.5-5.90); Red Cell Distribution Width 14.3 % (11.8-14.3); White Blood Cell 12.3 10^3/uL (4.4-10.8)
--- NOTE | 2019-09-05 07:20 | NUR ---
Opening Shift Note Assumed care of patient, awake and alert. A&ox4. No S/S of distress/SOB or pain. Safety measures maintained by keeping the bed locked in lowest position, side rails up x2, personal items and call light within reach. Instructed on POC and to call for assist PRN, will continue to monitor for changes Q1hr and PRN.
[2019-09-05] MEDS: ALBUTEROL SULF HFA 90MCG INH 200DOSE IN SCH ×3 (07:25→22:16)
[2019-09-05 07:35] LABS: Potassium 3.6 mmol/L (3.5-5.1)
[2019-09-05 07:46] LABS: Albumin 2.4 g/dL (3.4-5.0); BUN/Creatinine Ratio 34.9; Bilirubin, Total 0.2 mg/dL (0.2-1.0); Calcium 7.8 mg/dL (8.5-10.1); Total Protein 6.8 g/dL (6.4-8.2)
[2019-09-05 09:00] VITALS: BP 119/66
[2019-09-05] MEDS: METOPROLOL SUCCINATE XL 50 MG TAB PO SCH (10:00)
[2019-09-05] MEDS ORDERED: FAMOTIDINE (10MG/ML) 2ML VL IV SCH (10:00)
[2019-09-05] MEDS: ASPirin 81 mg TAB PO SCH (10:14)
[2019-09-05] MEDS: ZINC SULFATE 220mg CAP or TAB PO SCH (10:15)
[2019-09-05] MEDS: ASCORBIC ACID 1,000 MG TAB PO SCH (10:15)
[2019-09-05] MEDS: DexAMETHasone 4 MG TAB PO SCH ×2 (10:15→22:15)
[2019-09-05] MEDS: SERTRALINE HCL 50 MG TAB PO SCH (10:16)
[2019-09-05] MEDS: CHOLECALCIFEROL (VITD3) 1,000UNIT=25mCg TAB PO SCH (10:26)
[2019-09-05] MEDS: cefTRIAXone 1GM/50ML D5W 50 ML IV SCH ×2 (10:28→21:10)
[2019-09-05] MEDS: DOXYCYCLINE 100MG/250ML 250 ML IV SCH ×2 (10:29→22:13)
[2019-09-05] MEDS: ENOXAPARIN SOD 60 MG/0.6 ML SYRINGE SC SCH (11:14)
[2019-09-05] MEDS ORDERED: SODIUM CHLORIDE 0.9% 1,000 ML IV ONE (12:00)
[2019-09-05] MEDS ORDERED: PANTOPRAZOLE 40 MG TAB PO ONE (12:00)
[2019-09-05] MEDS: ENOXAPARIN SOD 40 MG/0.4 ML SYRINGE SC SCH (12:52)
[2019-09-05 13:00] VITALS: BP 128/78
[2019-09-05] MEDS: HYDROcodone-ACET 5/325MG TAB PO PRN (13:13)
[2019-09-05 17:00] VITALS: BP 122/73
[2019-09-05] MEDS ORDERED: DEXTROSE (50%) 50ML SYRG IV PRN (19:00)
--- NOTE | 2019-09-05 19:20 | NUR ---
Opening Shift Note Received report from Myla WEST. Assumed care of patient, awake and alert. No S/S of distress/SOB or pain. Instructed on POC and to call for assist PRN, will continue to monitor for changes Q1hr and PRN.
[2019-09-05 22:00] VITALS: BP 129/80
[2019-09-05] MEDS: FAMOTIDINE (10MG/ML) 2ML VL IV SCH (22:13)
[2019-09-05] MEDS: ATORVASTATIN 20 MG TAB PO SCH (22:14)
[2019-09-05] MEDS: PANTOPRAZOLE 40 MG TAB PO SCH (22:14)
[2019-09-05] MEDS: INSULIN LANTUS (GLARGINE) 1 /0.01ml (100units/ml) SC SCH (22:16)
[2019-09-05] MEDS: LORazepam 0.5 MG TAB PO PRN (22:41)
[2019-09-06] MEDS: InsuLIN REG 1unit/0.01ml Soln (100units/ml) SC SCH ×4 (00:16→17:36)
[2019-09-06] MEDS: ACCU-CHEK COMFORT CURVE STRIP VI SCH ×4 (00:16→17:35)
[2019-09-06 05:00] VITALS: BP 133/75
[2019-09-06] MEDS: GABAPENTIN 300 MG CAP PO SCH ×3 (05:42→22:03)
[2019-09-06] MEDS: ALBUTEROL SULF HFA 90MCG INH 200DOSE IN SCH ×3 (05:42→22:02)
[2019-09-06] MEDS: MORPHINE SULF INJ 2 MG/ML SYRINGE 1ML IV PRN ×2 (05:43→18:43)
--- NOTE | 2019-09-06 05:43 | NUR ---
Patient complains of back pain at 9/10, Morphine IV given, will continue to monitor.
--- NOTE | 2019-09-06 06:29 | NUR ---
Patient reassessed, 0 pain at this time.
[2019-09-06] MEDS: INSULIN LANTUS (GLARGINE) 1 /0.01ml (100units/ml) SC SCH ×2 (06:31→22:32)
--- NOTE | 2019-09-06 07:30 | NUR ---
Opening Shift Note RECEIVED REPORT FROM NOC RN. Assumed care of patient, awake and alert. PATIENT ON OXYGEN AT 3 LPM VIA NASAL CANNULA WITH no S/S of distress/SOB or pain. BED IN LOWEST, LOCKED POSITION WITH SIDERAILS UP x2 AND CALL LIGHT WITHIN REACH. Instructed on POC and to call for assist PRN, will continue to monitor for changes Q1hr and PRN.
[2019-09-06 09:00] VITALS: BP 106/70
[2019-09-06] MEDS: cefTRIAXone 1GM/50ML D5W 50 ML IV SCH ×2 (09:22→22:02)
[2019-09-06] MEDS: FAMOTIDINE (10MG/ML) 2ML VL IV SCH ×2 (11:15→22:03)
[2019-09-06] MEDS: DOXYCYCLINE 100MG/250ML 250 ML IV SCH ×2 (11:15→22:30)
[2019-09-06] MEDS: DexAMETHasone 4 MG TAB PO SCH ×2 (11:16→22:03)
[2019-09-06] MEDS: ASCORBIC ACID 1,000 MG TAB PO SCH (11:16)
[2019-09-06] MEDS: METOPROLOL SUCCINATE XL 50 MG TAB PO SCH (11:16)
[2019-09-06] MEDS: CHOLECALCIFEROL (VITD3) 1,000UNIT=25mCg TAB PO SCH (11:16)
[2019-09-06] MEDS: ZINC SULFATE 220mg CAP or TAB PO SCH (11:16)
[2019-09-06] MEDS: PANTOPRAZOLE 40 MG TAB PO SCH ×2 (11:16→22:03)
[2019-09-06] MEDS: SERTRALINE HCL 50 MG TAB PO SCH (11:17)
[2019-09-06 12:28] VITALS: BP 147/86
--- NOTE | 2019-09-06 12:33 | NUR ---
Assessment Resolution Specialist spoke with pt per initial assessment. Pt is a 64 yr old male admitted for covid. He has a hx of heart disease. Pt was a/a/ox4, receptive to ss visit. Pt was independent with adl's prior to admission. He uses a cane to ambulate. Pt resides with his son Nehemiah and daughter in law, they are able to assist him at home. Pt does not have ahcd, human capital manager informed pt of the benefits of ahcd. Pt cannot recall his pcp. Plan is for pt to dc home with family, ss to continue to monitor pt for home health if needed. Addendum: 09/06/19 at 1236 by ALO HILARIO Amended: Links added.
--- NOTE | 2019-09-06 12:35 | NUR ---
Est energy needs 9547-3588 kcal (30-35 kcal/kg BW 64.7kg) Est protein needs 65-78g (1-1.2g/kg BW 64.7 kg) will reassess prn Addendum: 09/06/19 at [address] Amended: Links added.
--- NOTE | 2019-09-06 14:40 | NUR ---
DR. CROCKETT ON UNIT.
[2019-09-06] MEDS ORDERED: POTASSIUM CHL 10 Meq TABLET PO ONE (17:15)
[2019-09-06] MEDS ORDERED: FUROSEMIDE 20 MG/2 ML VIAL IV ONE (17:15)
--- NOTE | 2019-09-06 19:15 | NUR ---
Opening Shift Note Assumed care of patient, awake and alert. Patient on 3 liters oxygen via nasal cannula with pulse oxygenation at 975. No S/S of distress/SOB or pain. Bed in lowest locked position, side rails up x2, call light within reach. Instructed on POC and to call for assist PRN, will continue to monitor for changes Q1hr and PRN. COVID [address], will continue to maintain throughout shift. Addendum: 09/07/19 at 0149 by MARIZOL CADET RN RN CORRECTION: Pulse oxygenation at 97%.
[2019-09-06 22:00] VITALS: BP 142/79
[2019-09-06] MEDS: ATORVASTATIN 20 MG TAB PO SCH (22:03)
[2019-09-07 01:00] VITALS: BP 142/78
[2019-09-07] MEDS: MORPHINE SULF INJ 2 MG/ML SYRINGE 1ML IV PRN ×3 (02:18→23:38)
--- NOTE | 2019-09-07 02:35 | NUR ---
Patient requesting to have IV removed, reports site is painful when flushed. This RN offered multiple times to change IV site for patient, patient refusing all offers to have IV site changed and reports that he "only wants a PICC line". Patient stating that IV site is red, no redness noted on observation of IV site by this RN. Patient also reports that IV site is "leaking". When asked by this RN where the patient feels the IV leaking, the patient stated that "it is leaking on the inside. I can feel it." No redness, swelling or leaking noted by this RN. Patient aware that current NOC staff cannot perform PICC line insertion, patient verbalized understanding. Will inform dayshift RN and continue to monitor IV site and patient.
[2019-09-07 05:00] VITALS: BP 129/78
[2019-09-07] MEDS: ACCU-CHEK COMFORT CURVE STRIP VI SCH ×4 (06:00→17:28)
[2019-09-07] MEDS: InsuLIN REG 1unit/0.01ml Soln (100units/ml) SC SCH ×4 (06:00→17:29)
[2019-09-07] MEDS: ALBUTEROL SULF HFA 90MCG INH 200DOSE IN SCH ×3 (06:45→22:55)
--- NOTE | 2019-09-07 06:45 | NUR ---
Respiratory note: NO RESPIRATORY DISTRESS NOTED. SPO2 93% ON 4LNC, HR 66, RR 20, BS CLEAR/DIMINISHED BILATERALLY. 1 PUFF ALBUTEROL (90MCG) GIVEN VIA MDI WITH CHAMBER. NO ADVERSE EFFECTS NOTED. NO FURTHER RESPIRATORY INTERVENTIONS INDICATED. CHARTING COMPLETE FROM OUTSIDE OF PT ROOM DUE TO COVID-19 PRECAUTIONS/PROTOCOL.
[2019-09-07] MEDS: GABAPENTIN 300 MG CAP PO SCH ×3 (06:55→22:40)
[2019-09-07] MEDS: INSULIN LANTUS (GLARGINE) 1 /0.01ml (100units/ml) SC SCH ×2 (07:00→22:40)
--- NOTE | 2019-09-07 07:00 | NUR ---
Closing Note Patient lying in bed, awake and alert. No s/s of distress. Call light within reach. Care endorsed to dayshift RN.
[2019-09-07] MEDS: HYDROcodone-ACET 5/325MG TAB PO PRN ×2 (07:04→23:42)
[2019-09-07] MEDS: LORazepam 0.5 MG TAB PO PRN ×2 (07:04→20:52)
--- NOTE | 2019-09-07 07:38 | NUR ---
Opening Shift Note Assumed care of patient, awake and alert. Patient on 4 liters oxygen via nasal cannula with pulse oxygenation at 98%. No S/S of distress/SOB or pain. Bed in lowest locked position, side rails up x2, call light within reach. Instructed on POC and to call for assist PRN, will continue to monitor for changes Q1hr and PRN. COVID [address], will continue to maintain throughout shift
[2019-09-07 08:41] LABS: Basophils # (auto) 0 10 ^3/uL (0-0.2); Basophils % (auto) 0.1 % (0.0-2.0); Eosinophils # (auto) 0 10 ^3/uL (0-0.8); Hematocrit 40.4 % (41.0-53.0); Hemoglobin 13.9 g/dL (13.5-17.5); Lymphocytes # (auto) 0.3 10 ^3/uL (0.4-5.4); Lymphocytes % (auto) 2.4 % (10.0-50.0); Mean Corpuscular Hemoglobin 31.3 pg (28.0-32.0); Mean Corpuscular Hgb Conc. 34.3 g/dL (32.0-36.0); Mean Corpuscular Volume 91.2 fL (80.0-100.0); Monocytes # (auto) 0.5 10 ^3/uL (0-1.3); Monocytes % (auto) 3.9 % (0.0-12.0); Neutrophils # (auto) 13.1 10 ^3/uL (1.6-8.6); Neutrophils % (auto) 93.6 % (37.0-80.0); Nucleated Red Blood Cells % 0.3 %; Platelet Count (auto) 159 10^3/uL (140-450); Red Blood Cells 4.43 10^6/uL (4.5-5.90); Red Cell Distribution Width 13.9 % (11.8-14.3)
[2019-09-07 08:53] LABS: Potassium 3.7 mmol/L (3.5-5.1)
[2019-09-07 09:00] VITALS: BP 147/90
[2019-09-07 09:03] LABS: Albumin 2.7 g/dL (3.4-5.0); BUN/Creatinine Ratio 29.4; Bilirubin, Total 0.2 mg/dL (0.2-1.0); Calcium 7.9 mg/dL (8.5-10.1); Total Protein 7.2 g/dL (6.4-8.2)
[2019-09-07] MEDS: cefTRIAXone 1GM/50ML D5W 50 ML IV SCH (09:27)
[2019-09-07] MEDS: POTASSIUM CHL 10 Meq TABLET PO SCH (09:28)
[2019-09-07] MEDS: FAMOTIDINE (10MG/ML) 2ML VL IV SCH (09:28)
[2019-09-07] MEDS: DexAMETHasone 4 MG TAB PO SCH ×2 (09:28→22:40)
[2019-09-07] MEDS: PANTOPRAZOLE 40 MG TAB PO SCH ×2 (09:29→22:40)
[2019-09-07] MEDS: ASCORBIC ACID 1,000 MG TAB PO SCH (09:29)
[2019-09-07] MEDS: SERTRALINE HCL 50 MG TAB PO SCH ×2 (09:30→10:00)
[2019-09-07] MEDS: ENOXAPARIN SOD 40 MG/0.4 ML SYRINGE SC SCH (09:30)
[2019-09-07] MEDS: CHOLECALCIFEROL (VITD3) 1,000UNIT=25mCg TAB PO SCH (09:30)
[2019-09-07] MEDS: ZINC SULFATE 220mg CAP or TAB PO SCH (09:30)
[2019-09-07] MEDS: METOPROLOL SUCCINATE XL 50 MG TAB PO SCH (09:31)
[2019-09-07] MEDS: DOXYCYCLINE 100MG/250ML 250 ML IV SCH (09:31)
[2019-09-07] MEDS ORDERED: FUROSEMIDE 20 MG/2 ML VIAL IV SCH (10:00)
[2019-09-07 12:31] VITALS: BP 135/85
--- NOTE | 2019-09-07 13:20 | NUR ---
IV removal IV DC'd with clean sterile technique, catheter fully intact. Pressure dressing applied to site. Patient tolerated well. Pt states "now your listen, if you do not take this IV out right now than i am going to rip it out, it is causing me so much pain and i mean look at this thing, it needs to come out" pt educated about importance of IV patient verbalized understanding
--- NOTE | 2019-09-07 13:32 | NUR ---
PAGED ACCOUNTANT SUPERVISOR FOR MIDLINE PLACEMENT PT VERU AGITATED WITH CURRENT IV STATES "NOW YOU LISTEN, I HAVE HAD TO HAVE SURGERY BECAUSE OF BAD IV'S AND YOU NEED TO GET ME A PICC LINE NOW, I AM NOT TALKING TO YOU ABOUT THIS ANY LONGER, YOU ARE GOING TO DO WHAT I WANT"
--- NOTE | 2019-09-07 13:55 | NUR ---
Respiratory note: NO RESPIRATORY DISTRESS NOTED. SPO2 93% ON 4LNC, HR 70, RR 18, BS CLEAR/DIMINISHED BILATERALLY. 1 PUFF ALBUTEROL (90MCG) GIVEN VIA MDI WITH CHAMBER. NO ADVERSE EFFECTS NOTED. NO FURTHER RESPIRATORY INTERVENTIONS INDICATED. CHARTING COMPLETE FROM OUTSIDE OF PT ROOM DUE TO COVID-19 PRECAUTIONS/PROTOCOL.
--- NOTE | 2019-09-07 15:30 | NUR ---
PT REQUESTING TO SPEAK WITH HIGHER UPS PT STATES "I NEED TO SPEAK TO A TRUST ADMINISTRATIVE ASSISTANT, YOU GUYS ARE NOT DOING YOUR JOB, LOOK AT MY ARM. IT IS SO INFECTED I MEAN ALL THE WAY FROM HERE TO HERE 'GESTURES FROM WRIST TO UPPER ARM' SOMEONE NEED TO LOOK AT THIS, AND THE DOCTOR THAT CAME IN HERE DID NOT LET ME KNOW WHAT WAS SHARON ON AT ALL, I JUST NEED TO TALK TO YOUR TRUST ADMINISTRATIVE ASSISTANT" UPON ASSESSMENT ARM IS WARM AND DRY TO TOUCH, BILATERALLY SYMMETRICAL. MINOR REDNESS FROM PREVIOUS IV INSERTION.
--- NOTE | 2019-09-07 15:45 | NUR ---
HEALTH SOCIAL WORK PROFESSOR MADE AWARE OF PT REQUEST TO SPEAK WITH HIGHER UPS PER HEALTH SOCIAL WORK PROFESSOR SHE WILL COME AND SPEAK WITH PATIENT AFTER MEETING IS COMPLETED
[2019-09-07 17:00] VITALS: BP 131/83
--- NOTE | 2019-09-07 19:50 | NUR ---
no iv present. patient refuses placement of a new iv. patient educated on benefits and risk patient refused.
--- NOTE | 2019-09-07 19:50 | NUR ---
Opening Shift Note Assumed care of patient, awake and alert. No S/S of distress/SOB or pain. Instructed on POC and to call for assist PRN, will continue to monitor for changes Q1hr and PRN. bed in low position and call light within reach.
[2019-09-07 20:00] VITALS: BP 128/79
--- NOTE | 2019-09-07 22:24 | NUR ---
patient refusing scheduleed medications. patient educated on medications and benefits and risks of medication. patient refused. per patient " they do not make me feel better." patient reeducated on medications and risk and benefit. patient verbalized refusal and stated "leave me alone"
[2019-09-07] MEDS: ATORVASTATIN 20 MG TAB PO SCH (22:40)
[2019-09-07] MEDS: DOXYCYCLINE 100 MG TAB/CAP PO SCH (22:40)
--- NOTE | 2019-09-07 22:40 | NUR ---
patient educated on medications,benefits and risks of medication. patient continues to refuse medication scheduled. patient verbalized refusal and stated "leave me alone"
--- NOTE | 2019-09-07 23:09 | NUR ---
notified md mondragon patient refused medications scheduled. aware.no new orders received.
[2019-09-08] VITALS (7 sets, daily range): BP systolic 128–160; BP diastolic 55–89
--- NOTE | 2019-09-08 | NUR ---
patient refused medication scheduled. patient educated on risk and benefits patient refused.
[2019-09-08 05:10] LABS: Basophils # (auto) 0 10 ^3/uL (0-0.2); Eosinophils # (auto) 0 10 ^3/uL (0-0.8); Hematocrit 40.7 % (41.0-53.0); Hemoglobin 13.7 g/dL (13.5-17.5); Lymphocytes # (auto) 0.3 10 ^3/uL (0.4-5.4); Mean Corpuscular Hemoglobin 30.9 pg (28.0-32.0); Mean Corpuscular Hgb Conc. 33.7 g/dL (32.0-36.0); Mean Corpuscular Volume 91.6 fL (80.0-100.0); Monocytes # (auto) 0.7 10 ^3/uL (0-1.3); Monocytes % (auto) 4.5 % (0.0-12.0); Neutrophils # (auto) 14.6 10 ^3/uL (1.6-8.6); Neutrophils % (auto) 93.5 % (37.0-80.0); Platelet Count (auto) 158 10^3/uL (140-450); Red Blood Cells 4.44 10^6/uL (4.5-5.90); Red Cell Distribution Width 14.1 % (11.8-14.3); White Blood Cell 15.6 10^3/uL (4.4-10.8)
[2019-09-08] MEDS: ALBUTEROL SULF HFA 90MCG INH 200DOSE IN SCH ×3 (05:31→21:40)
[2019-09-08] MEDS: ACCU-CHEK COMFORT CURVE STRIP VI SCH ×4 (05:34→17:45)
[2019-09-08] MEDS: GABAPENTIN 300 MG CAP PO SCH ×3 (05:34→21:39)
[2019-09-08] MEDS: InsuLIN REG 1unit/0.01ml Soln (100units/ml) SC SCH ×4 (05:34→17:45)
[2019-09-08 05:38] LABS: BUN/Creatinine Ratio 27.5; Potassium 3.6 mmol/L (3.5-5.1)
[2019-09-08] MEDS: INSULIN LANTUS (GLARGINE) 1 /0.01ml (100units/ml) SC SCH ×2 (06:27→21:39)
--- NOTE | 2019-09-08 06:30 | NUR ---
patient refused morning medications. patient educated on risks and benefits of medications patient yelled " i said no"
--- NOTE | 2019-09-08 06:50 | NUR ---
report given to dayshift rn. patient is awake and alert denies sob distress or pain.
[2019-09-08] MEDS: ZINC SULFATE 220mg CAP or TAB PO SCH (09:25)
[2019-09-08] MEDS: DexAMETHasone 4 MG TAB PO SCH (09:26)
[2019-09-08] MEDS: POTASSIUM CHL 10 Meq TABLET PO SCH (09:28)
[2019-09-08] MEDS: levoFLOXacin 500 MG TAB PO SCH (09:29)
[2019-09-08] MEDS: FUROSEMIDE 20 MG TAB PO SCH (09:29)
[2019-09-08] MEDS: PANTOPRAZOLE 40 MG TAB PO SCH ×2 (09:30→21:39)
[2019-09-08] MEDS: METOPROLOL SUCCINATE XL 50 MG TAB PO SCH (09:30)
[2019-09-08] MEDS: CHOLECALCIFEROL (VITD3) 1,000UNIT=25mCg TAB PO SCH (09:31)
[2019-09-08] MEDS: DOXYCYCLINE 100 MG TAB/CAP PO SCH ×2 (09:31→21:39)
[2019-09-08] MEDS: ASCORBIC ACID 1,000 MG TAB PO SCH (09:31)
[2019-09-08] MEDS: SERTRALINE HCL 50 MG TAB PO SCH ×2 (09:32→09:52)
[2019-09-08] MEDS: ENOXAPARIN SOD 40 MG/0.4 ML SYRINGE SC SCH (09:32)
--- NOTE | 2019-09-08 20:00 | NUR ---
Opening Shift Note Assumed care of patient, awake and alert. Patient found sitting on the side of the bed, short of breath with nasal cannula off, reapplied it back on at 6L, educated patient on keeping the nasal cannula on, patient verbalized understanding. No pain noted at this time. Safety measures maintained by keeping the bed locked in lowest position, 2 side rails up, personal items and call light within reach. Instructed on POC and to call for assist PRN, will continue to monitor for changes Q1hr and PRN.
[2019-09-08] MEDS: ATORVASTATIN 20 MG TAB PO SCH (21:39)
[2019-09-08] MEDS: HYDROcodone-ACET 5/325MG TAB PO PRN (21:43)
--- NOTE | 2019-09-08 22:00 | NUR ---
Patient Refusing Medication Patient refused all 2200 medication, patient educated regarding medication, patient verbalized understanding.
[2019-09-09] MEDS: LORazepam 0.5 MG TAB PO PRN ×3 (00:40→22:39)
[2019-09-09] MEDS: InsuLIN REG 1unit/0.01ml Soln (100units/ml) SC SCH ×4 (00:40→17:51)
[2019-09-09] MEDS: ACCU-CHEK COMFORT CURVE STRIP VI SCH ×4 (00:47→17:51)
[2019-09-09] MEDS: HYDROcodone-ACET 5/325MG TAB PO PRN ×4 (04:22→20:25)
[2019-09-09 05:00] VITALS: BP 138/81
[2019-09-09] MEDS: ALBUTEROL SULF HFA 90MCG INH 200DOSE IN SCH ×3 (05:58→20:56)
[2019-09-09] MEDS: GABAPENTIN 300 MG CAP PO SCH ×4 (05:58→22:05)
[2019-09-09] MEDS: INSULIN LANTUS (GLARGINE) 1 /0.01ml (100units/ml) SC SCH ×2 (06:29→22:34)
[2019-09-09 08:00] VITALS: BP 173/101
[2019-09-09] MEDS: ZINC SULFATE 220mg CAP or TAB PO SCH (08:55)
[2019-09-09 09:00] VITALS: BP 173/101
[2019-09-09] MEDS: FUROSEMIDE 20 MG TAB PO SCH ×2 (09:00→17:51)
[2019-09-09] MEDS: POTASSIUM CHL 10 Meq TABLET PO SCH (09:00)
--- NOTE | 2019-09-09 09:00 | NUR ---
UNABLE TO OBTAIN 0900 TEMP . PT REFUSED .
[2019-09-09] MEDS: levoFLOXacin 500 MG TAB PO SCH (09:02)
[2019-09-09] MEDS: PANTOPRAZOLE 40 MG TAB PO SCH ×3 (09:02→22:05)
[2019-09-09] MEDS: METOPROLOL SUCCINATE XL 50 MG TAB PO SCH (09:03)
[2019-09-09] MEDS: CHOLECALCIFEROL (VITD3) 1,000UNIT=25mCg TAB PO SCH (09:04)
[2019-09-09] MEDS: ASCORBIC ACID 1,000 MG TAB PO SCH (09:04)
[2019-09-09] MEDS: SERTRALINE HCL 50 MG TAB PO SCH (09:04)
[2019-09-09] MEDS: DOXYCYCLINE 100 MG TAB/CAP PO SCH ×2 (09:04→22:05)
[2019-09-09] MEDS: ENOXAPARIN SOD 40 MG/0.4 ML SYRINGE SC SCH (09:05)
[2019-09-09 10:43] LABS: Hematocrit 45.7 % (41.0-53.0); Hemoglobin 15.3 g/dL (13.5-17.5); Mean Corpuscular Hgb Conc. 33.5 g/dL (32.0-36.0); Mean Corpuscular Volume 92.6 fL (80.0-100.0); Platelet Count (auto) 189 10^3/uL (140-450); Red Blood Cells 4.94 10^6/uL (4.5-5.90); Red Cell Distribution Width 14.5 % (11.8-14.3); White Blood Cell 11.8 10^3/uL (4.4-10.8)
[2019-09-09 10:51] LABS: Band Neutrophils % (manual) 0; Basophils % (manual) 0 (0.0-2.0); Blast Cells 0; Eosinophils % (manual) 0 (0-7); Metamyelocytes % 0; Myelocytes % 0; Promyelocytes % 0; Reactive Lymphocytes 0
[2019-09-09 11:19] LABS: Lymphocytes % (manual) 5 (10.0-50.0); Monocytes % (manual) 4 (0-12)
[2019-09-09 13:00] VITALS: BP 129/98
[2019-09-09] MEDS ORDERED: FUROSEMIDE 20 MG/2 ML VIAL IV ONE (15:00)
[2019-09-09 17:00] VITALS: BP 133/74
--- NOTE | 2019-09-09 17:11 | NUR ---
Nutrition Followup Notes Pt wt is 62.6 kg Pt is positive for COVID. Pt is with a CCHO 75g diet, appetite is sporatic per RN doc, % PO intake not documented since 09/06. Noted pt is refusing medicines and is uncooperative per RN doc. Will continue to monitor PO status, skin status, pertinent labs and weight trends. Will f/u in 3-5 days. Est energy needs 3845-8495 kcal (30-35 kcal/kg BW 64.7kg) Est protein needs 65-78g (1-1.2g/kg BW 64.7 kg) will reassess prn LABS: Gluc 166 H, A1c 10.4 H, alb 2.7 L GI: Pt had 2 BM on 09/08 per RN doc BS: 21 low risk. Refer to wound assessment report for full details. PES: Altered nutrition related labs r/t chronic and current medical condition aeb pt with hyperglycemia, hypoalb Comments 1) Continue to monitor po intake, labs, skin 2) Refer pt to CDE on DC 3) Continue current plan of care
--- NOTE | 2019-09-09 20:00 | NUR ---
Low Oxygen Saturation Upon entering room, patient was noted on the side of the bed with nasal cannula off, short of breath, and stating "help me, help me." SPO2 was in the high 70s at this time. Nasal Cannula was placed back on patient and patient was encouraged to take deep breaths. Oxygen saturation remained in the high 70s. This RN paged RT for Oxymizer, patient was placed on 12L Oxymizer, SPO2 remained in the mid 80s. RT was re-paged for a nonrebreather. Patient was placed on nonrebreather and SPO2 came up to 98%. Patient was educated on the risks of hypoxia and the importance of keeping nonrebreather on. Patient took nonrebreather off and kept stating "help me, help me." This RN discussed with patient that we were all trying to help him but he needed to help us help him by keeping the nonrebreather on. This RN reinforced education on the risk of hypoxia and placed nonrebreather back on patient. Patient is alert and oriented x2. Patient reoriented to time and situation. Patient is on 15L nonrebreather, SPO2: 98%, RR 28. Instructed on plan of care and encouraged patient to call for assistance as needed, patient verbalized understanding. Bed is locked in lowest position, side rails x 2 are up, call light is within reach, and bed alarm is on.
--- NOTE | 2019-09-09 20:10 | NUR ---
Refusing IV Insertion No IV access at this time. Patient educated on benefits and risk, patient continues to refuse IV insertion at this time.
--- NOTE | 2019-09-09 20:30 | NUR ---
Hospitalist Paged RE: Low Oxygen Saturation/Confusion Hospitalist paged regarding low oxygen saturation and patient's mental status (change from baseline). Awaiting call back.
[2019-09-09] MEDS: DexAMETHasone 4 MG TAB PO SCH (20:57)
--- NOTE | 2019-09-09 21:20 | NUR ---
Received Call From Hospitalist Updated COMPENSATION EXPERT Hammond on patient status. Notified COMPENSATION EXPERT Hammond that patient is alert and oriented x2, change from baseline from previous shift. COMPENSATION EXPERT Hammond also made aware that patient is now on 15L nonrebreather with SPO2 at 98% and with RR at 28. COMPENSATION EXPERT Hammond made aware that patient states that he feels like he is going to pass out. Orders received for ABG stat. Will carry out order as received.
[2019-09-09 22:00] VITALS: BP 115/75
[2019-09-09] MEDS: ATORVASTATIN 20 MG TAB PO SCH ×2 (22:00→22:05)
--- NOTE | 2019-09-09 22:05 | NUR ---
RT NOTE: PAGED FOR ABG, PT BEING UNCOOPERATIVE WITH KEEPING OXYGEN ON. PT KEEPS REMOVING NRB. SPO2 79%. HR 115, RR 22. PT EDUCATED ON RISK OF HYPOXIA AND PT STILL REFUSING. ABG OBTAINED AND NRB PLACED BACK ON PT SPO2 INCREASED 90%. RN AND MOUNTER AT BEDSIDE.
--- NOTE | 2019-09-09 22:10 | NUR ---
ALIRIO OBTAINED AND PAGED RIVAS CARTER WITH CRITICAL RESULTS, AWAITING CALL BACK.
--- NOTE | 2019-09-09 22:26 | NUR ---
Hospitalist Paged RE: ABG Results Hospitalist paged regarding ABG results. Awaiting call back.
--- NOTE | 2019-09-09 22:29 | NUR ---
Received Call from Hospitalist RE: ABG results RIVAS Hammond made aware of ABG results. No new orders received at this time.
--- NOTE | 2019-09-09 23:04 | NUR ---
Oxygen Desaturation Oxygen saturation on monitoring tech noted to be trending down into the 70s. Upon entering room patient was noted on the side of the bed using the urinal with the nonrebreather off, SPO2: 74%. This RN placed nonrebreather back on patient and re-educated patient on the importance of keeping the nonrebreather on. This RN assisted patient back into bed. Patient is on 15L nonrebreather, SPO2: 99% at this time. Encouraged patient to call for assistance as needed, patient verbalized understanding. Bed is locked in lowest position, side rails x 2 are up, call light is within reach, and bed alarm is on.
[2019-09-10] VITALS (12 sets, daily range): BP systolic 102–144; BP diastolic 61–86
[2019-09-10] MEDS: HYDROcodone-ACET 5/325MG TAB PO PRN ×2 (00:25→04:25)
[2019-09-10] MEDS: ACCU-CHEK COMFORT CURVE STRIP VI SCH ×4 (00:46→17:32)
--- NOTE | 2019-09-10 01:30 | NUR ---
Nonrebreather Off SPO2 on bottle selector was 74%. Upon entering room patient had his nonrebreather off and was sitting on the edge of the bed using the urinal. Nonrebreather was placed back on patient and patient was reeducated on the importance of keeping the nonrebreather on due to desaturation. Patient assisted back into bed. Patient is on 15L nonrebreather, SPO2: 93% at this time. Encouraged patient to call for assistance as needed. Encouraged and educated patient on the importance of leaving nonrebreather on at all times, reinforcement needed. Bed is locked in lowest position, side rails x 2 are up, and call light is within reach.
--- NOTE | 2019-09-10 02:37 | NUR ---
Rounds Patient requesting juice at this time. Patient provided with juice. Patient is on nonrebreather 15L/min, SPO2: 97% at this time. Encouraged patient to call for assistance as needed, patient verbalized understanding. Bed is locked in lowest position, side rails x 2 are up, and call light is within reach.
[2019-09-10] MEDS: GABAPENTIN 300 MG CAP PO SCH ×3 (06:00→22:00)
[2019-09-10] MEDS: InsuLIN REG 1unit/0.01ml Soln (100units/ml) SC SCH ×4 (06:42→17:33)
[2019-09-10] MEDS: INSULIN LANTUS (GLARGINE) 1 /0.01ml (100units/ml) SC SCH ×2 (06:45→22:00)
[2019-09-10] MEDS: ALBUTEROL SULF HFA 90MCG INH 200DOSE IN SCH ×3 (07:03→21:39)
--- NOTE | 2019-09-10 07:13 | NUR ---
Closing Shift Note Patient is on nonrebreather 15L/min, SPO2: 96% at this time. Endorsed patient care to Jean Claude WEST.
[2019-09-10] MEDS: DexAMETHasone 4 MG TAB PO SCH ×2 (09:07→21:38)
[2019-09-10] MEDS: POTASSIUM CHL 10 Meq TABLET PO SCH (09:07)
[2019-09-10] MEDS: ZINC SULFATE 220mg CAP or TAB PO SCH (09:07)
[2019-09-10] MEDS: levoFLOXacin 500 MG TAB PO SCH (09:10)
[2019-09-10] MEDS: FUROSEMIDE 20 MG TAB PO SCH (09:10)
[2019-09-10] MEDS: PANTOPRAZOLE 40 MG TAB PO SCH ×2 (09:10→22:00)
[2019-09-10] MEDS: METOPROLOL SUCCINATE XL 50 MG TAB PO SCH (09:11)
[2019-09-10] MEDS: DOXYCYCLINE 100 MG TAB/CAP PO SCH ×2 (09:11→21:38)
[2019-09-10] MEDS: ASCORBIC ACID 1,000 MG TAB PO SCH (09:12)
[2019-09-10] MEDS: CHOLECALCIFEROL (VITD3) 1,000UNIT=25mCg TAB PO SCH (09:12)
[2019-09-10] MEDS: SERTRALINE HCL 50 MG TAB PO SCH (09:12)
[2019-09-10] MEDS: ENOXAPARIN SOD 40 MG/0.4 ML SYRINGE SC SCH (09:13)
[2019-09-10] MEDS: LORazepam 0.5 MG TAB PO PRN ×2 (09:13→21:26)
[2019-09-10] MEDS ORDERED: FUROSEMIDE 20 MG/2 ML VIAL IV SCH (10:00)
--- NOTE | 2019-09-10 10:00 | NUR ---
Pt refusing linen change .
[2019-09-10 11:55] LABS: Basophils # (auto) 0.1 10 ^3/uL (0-0.2); Basophils % (auto) 0.7 % (0.0-2.0); Eosinophils # (auto) 0 10 ^3/uL (0-0.8); Eosinophils % (auto) 0.1 % (0.0-7.0); Hematocrit 44.9 % (41.0-53.0); Lymphocytes # (auto) 0.3 10 ^3/uL (0.4-5.4); Lymphocytes % (auto) 2.1 % (10.0-50.0); Mean Corpuscular Hemoglobin 30.9 pg (28.0-32.0); Mean Corpuscular Hgb Conc. 33.5 g/dL (32.0-36.0); Mean Corpuscular Volume 92.4 fL (80.0-100.0); Monocytes # (auto) 0.3 10 ^3/uL (0-1.3); Neutrophils # (auto) 12.8 10 ^3/uL (1.6-8.6); Neutrophils % (auto) 95.1 % (37.0-80.0); Nucleated Red Blood Cells % 0.1 %; Platelet Count (auto) 216 10^3/uL (140-450); Red Blood Cells 4.86 10^6/uL (4.5-5.90); Red Cell Distribution Width 14.4 % (11.8-14.3); White Blood Cell 13.5 10^3/uL (4.4-10.8)
[2019-09-10 12:16] LABS: Potassium 3.7 mmol/L (3.5-5.1)
[2019-09-10] MEDS: MORPHINE SULF INJ 2 MG/ML SYRINGE 1ML IV PRN ×2 (16:03→20:10)
--- NOTE | 2019-09-10 19:30 | NUR ---
Opening Shift Note Assumed care of patient, awake and alert x4. Patient denies pain or shortness of breath at this time. Patient is on a nonrebreather 12L/min, SPO2: 98% at this time. No sign/symptoms of distress noted or verbalized at this time. Instructed on plan of care and encouraged patient to call for assistance as needed,patient verbalized understanding. Bed is locked in lowest position, side rails x 2 are up, call light is within reach, and bed alarm is on.
[2019-09-10] MEDS ORDERED: REMDESIVIR 200 MG in NS 210ml LOADING DOSE ADULT IV ONE (20:00)
--- NOTE | 2019-09-10 20:35 | NUR ---
Remdesivir Infusion Started Remdesivir consent obtained by herminio WEST, see hardchart. Reinforced education on Remdesivir. Informed patient that Remdesivir is not a FDA approved medication, informed of the potential risks and benefits of Remdesivir, informed patient that he has the option to accept or refuse Remdesivir at any time, fact sheet noted at the bedside. No question/concerns at this time. Pre infusion vital signs are the following: BP: 124/79, HR: 65, RR: 20, SPO2:99% on 12L/min nonrebreather, and TEMP: 97.7. Remdesivir infusing at 4.17ml/min to left AC per protocol. No sign/symptoms of distress noted at this time. Patient denies nausea or shivering at this time. No diaphoresis noted. Will continue care.
--- NOTE | 2019-09-10 21:40 | NUR ---
Blood Sugar Blood sugar is 83. Patient provided with an orange juice and yenifer crackers. Patient drank orange juice and refused yenifer crackers or a small snack at this time. No sign/symptoms of distress noted at this time. Will continue care.
[2019-09-10] MEDS: ATORVASTATIN 20 MG TAB PO SCH (22:00)
--- NOTE | 2019-09-10 22:45 | NUR ---
Remdesivir Infusion Complete Remdesivir infusion completed. No sign/symptoms of distress noted or verbalized at this time.Patient denies nausea or chills at this time. No diaphoresis or shivering noted at this time. Post infusion vital signs are the following: BP: 136/71, RR: 24, HR: 66, SPO2: 98% on 12L/min nonrebreather, and TEMP: 97.5. Patient tolerated well. Will continue care. Addendum: 09/10/19 at 2343 by JEFFRY HINTON RN RN Wrong Time: 22:45 Correct Time: 21:45 Remdesivir infusion completed at 21:45.
[2019-09-11] MEDS: ACCU-CHEK COMFORT CURVE STRIP VI SCH ×4 (00:33→18:05)
[2019-09-11] MEDS: MORPHINE SULF INJ 2 MG/ML SYRINGE 1ML IV PRN ×4 (01:30→20:26)
[2019-09-11] MEDS: HYDROcodone-ACET 5/325MG TAB PO PRN ×2 (02:57→11:39)
[2019-09-11 05:00] VITALS: BP 130/81
--- NOTE | 2019-09-11 05:45 | NUR ---
Oxygen Desaturation Patient refusing to wear nonrebreather while using the urinal. Patient SPO2 noted to be 72% on room air. Patient was educated on the risks of hypoxia and continued to refuse to put the nonrebreather back on. Patient stated "give me a minute, I need to catch my breath." Nonrebreather 12L/min placed back on patient, SPO2 increased to 96%.
[2019-09-11] MEDS: InsuLIN REG 1unit/0.01ml Soln (100units/ml) SC SCH ×4 (06:00→18:06)
[2019-09-11] MEDS: GABAPENTIN 300 MG CAP PO SCH ×3 (06:00→22:00)
[2019-09-11] MEDS: INSULIN LANTUS (GLARGINE) 1 /0.01ml (100units/ml) SC SCH ×2 (06:03→22:09)
[2019-09-11] MEDS: ALBUTEROL SULF HFA 90MCG INH 200DOSE IN SCH ×3 (06:03→23:44)
[2019-09-11 06:55] LABS: Potassium 3.8 mmol/L (3.5-5.1)
--- NOTE | 2019-09-11 07:01 | NUR ---
Closing Shift Note Patient is on nonrebreather 12L/min, SPO2: 97% at this time. Endorsed patient care to Jean Claude WEST.
[2019-09-11 07:21] LABS: Albumin 2.5 g/dL (3.4-5.0); BUN/Creatinine Ratio 31.4; Bilirubin, Total 0.4 mg/dL (0.2-1.0); Calcium 8.9 mg/dL (8.5-10.1); Total Protein 7.7 g/dL (6.4-8.2)
[2019-09-11 08:00] VITALS: BP 129/72
[2019-09-11] MEDS: ZINC SULFATE 220mg CAP or TAB PO SCH (09:04)
[2019-09-11] MEDS: DexAMETHasone 4 MG TAB PO SCH ×2 (09:04→22:13)
[2019-09-11] MEDS: POTASSIUM CHL 10 Meq TABLET PO SCH (09:05)
[2019-09-11] MEDS: levoFLOXacin 500 MG TAB PO SCH (09:06)
[2019-09-11 09:07] VITALS: BP 129/72
[2019-09-11] MEDS: PANTOPRAZOLE 40 MG TAB PO SCH ×2 (09:07→22:13)
[2019-09-11] MEDS: FUROSEMIDE 20 MG TAB PO SCH (09:08)
[2019-09-11] MEDS: METOPROLOL SUCCINATE XL 50 MG TAB PO SCH (09:08)
[2019-09-11] MEDS: DOXYCYCLINE 100 MG TAB/CAP PO SCH ×2 (09:09→22:13)
[2019-09-11] MEDS: SERTRALINE HCL 50 MG TAB PO SCH (09:09)
[2019-09-11] MEDS: CHOLECALCIFEROL (VITD3) 1,000UNIT=25mCg TAB PO SCH (09:09)
[2019-09-11] MEDS: ASCORBIC ACID 1,000 MG TAB PO SCH (09:09)
[2019-09-11] MEDS: LORazepam 0.5 MG TAB PO PRN ×2 (09:10→22:18)
[2019-09-11] MEDS: ENOXAPARIN SOD 40 MG/0.4 ML SYRINGE SC SCH (09:10)
[2019-09-11 17:11] VITALS: BP 123/74
--- NOTE | 2019-09-11 19:12 | NUR ---
Opening shift note: Assumed care of patient. Patient awake, alert and oriented X 4, no s/s of distress or SOB noted, respirations are even and unlabored and O2 sat 96% on 12 LPM nonrebreather. Bed in lowest locked position with two side rails raised and call hernandez within reach. Instructed on POC and encouraged to use call hernandez for assistance, all questions and concerns addressed, patient verbalized understanding. Will continue to monitor Q1 hr and PRN.
[2019-09-11 20:00] VITALS: BP 121/71
[2019-09-11] MEDS: REMDESIVIR 100mg in NS 230ml DAILYx4DAYS (NO VENT) IV SCH (20:25)
[2019-09-11 22:00] VITALS: BP 121/71
[2019-09-11] MEDS: ATORVASTATIN 20 MG TAB PO SCH (22:13)
--- NOTE | 2019-09-11 22:15 | NUR ---
Patient refusing 2200 gabapentin. Education provided. Will continue to monitor.
[2019-09-12] MEDS: ACCU-CHEK COMFORT CURVE STRIP VI SCH ×4 (00:23→18:23)
[2019-09-12] MEDS: MORPHINE SULF INJ 2 MG/ML SYRINGE 1ML IV PRN ×4 (00:26→22:00)
--- NOTE | 2019-09-12 01:00 | NUR ---
Oxygen Desaturation Patient refusing to wear nonrebreather. Patient SPO2 noted to be 69% on room air. Patient was educated on the risks of hypoxia and continued to refuse to put the nonrebreather back on. Patient stated "You always tell me that but I don't see you doing anything about it." Nonrebreather 15L/min placed back on patient, SPO2 increased to 95%. Will continue to monitor
--- NOTE | 2019-09-12 03:20 | NUR ---
PATIENT REQUESTING TO SPEAK WITH HIGHER UPS: Patient agitated and angry after primary RN did not adjust his blankets good enough and states, "I want to speak with administration about all this. Look how uncomfortably I am. I don't care if you have to wake them up call them and tell them I want to talk to them." Charge nurse aware about patients request. Will continue to monitor.
[2019-09-12 05:00] VITALS: BP 123/62
[2019-09-12] MEDS: InsuLIN REG 1unit/0.01ml Soln (100units/ml) SC SCH ×4 (06:00→18:24)
[2019-09-12] MEDS: GABAPENTIN 300 MG CAP PO SCH ×2 (06:00→14:00)
--- NOTE | 2019-09-12 06:00 | NUR ---
Patient refusing morning gabapentin. education provided. will continue to monitor.
--- NOTE | 2019-09-12 06:00 | NUR ---
Nonrebreather off. Patient found sitting on end of bed with notable SOB while using the urinal, nonrebreather hanging off the bed. When instructed to keep the nonrebreather on patient stated, "that doesn't do anything for me." O2 saturation 65% on room air. Educated and the importance of keeping oxygen on, patient continued to refuse to wear the nonrebreather. After patient was finished with the urinal nonrebreather 15LPM was placed back on and O2 saturation at 94%. Will continue to monitor.
[2019-09-12] MEDS: INSULIN LANTUS (GLARGINE) 1 /0.01ml (100units/ml) SC SCH ×2 (06:17→22:00)
[2019-09-12 06:51] LABS: Basophils # (auto) 0 10 ^3/uL (0-0.2); Basophils % (auto) 0.1 % (0.0-2.0); Eosinophils # (auto) 0 10 ^3/uL (0-0.8); Hematocrit 43.9 % (41.0-53.0); Hemoglobin 14.7 g/dL (13.5-17.5); Lymphocytes # (auto) 0.5 10 ^3/uL (0.4-5.4); Lymphocytes % (auto) 2.8 % (10.0-50.0); Mean Corpuscular Hgb Conc. 33.5 g/dL (32.0-36.0); Mean Corpuscular Volume 92.4 fL (80.0-100.0); Monocytes # (auto) 0.4 10 ^3/uL (0-1.3); Monocytes % (auto) 2.2 % (0.0-12.0); Neutrophils # (auto) 15.5 10 ^3/uL (1.6-8.6); Neutrophils % (auto) 94.9 % (37.0-80.0); Platelet Count (auto) 233 10^3/uL (140-450); Red Blood Cells 4.74 10^6/uL (4.5-5.90); Red Cell Distribution Width 14.2 % (11.8-14.3); White Blood Cell 16.4 10^3/uL (4.4-10.8)
--- NOTE | 2019-09-12 06:57 | NUR ---
Patient demands to speak with administrators and police department about his health stating, "I want to speak to administration and police department right now because you haven't gone to get my cell phone from my son and there's no way for me to call anyone." When instructed that he could use the bedside telephone he stated, "I don't want to use that phone, I want my own phone and I want to speak with the police right now." Will notify studio operations engineer in charge of patients request
[2019-09-12 07:02] LABS: Albumin 2.3 g/dL (3.4-5.0); Calcium 8.9 mg/dL (8.5-10.1); Potassium 4.3 mmol/L (3.5-5.1)
[2019-09-12 07:07] LABS: Bilirubin, Total 0.3 mg/dL (0.2-1.0)
--- NOTE | 2019-09-12 07:36 | NUR ---
Care endorsed to herminio WEST.
[2019-09-12 08:22] VITALS: BP 125/69
[2019-09-12] MEDS: ALBUTEROL SULF HFA 90MCG INH 200DOSE IN SCH ×3 (08:28→22:45)
--- NOTE | 2019-09-12 08:28 | NUR ---
RT NOTE: ATTEMPTED TO PLACE PT ON 10L SIMPLE MASK, BUT PT KEPT TAKING MASK OFF TO EAT AND REFUSED TO WEAR OXYMIZER. SPO2 WOULD DROP TO HIGH 70s BUT PT STRUGGLED TO BRING SPO2 BACK UP ON THE SIMPLE MASK. LEFT ON THE NRB AND RN AWARE OF SITUATION. WILL ATTEMPT TO TITRATE LATER.
[2019-09-12] MEDS: SERTRALINE HCL 50 MG TAB PO SCH (10:00)
[2019-09-12] MEDS: CHOLECALCIFEROL (VITD3) 1,000UNIT=25mCg TAB PO SCH (10:00)
[2019-09-12] MEDS ORDERED: FUROSEMIDE 40 MG/4 ML VIAL IV ONE (11:00)
[2019-09-12] MEDS: POTASSIUM CHL 10 Meq TABLET PO SCH (11:02)
[2019-09-12] MEDS: PANTOPRAZOLE 40 MG TAB PO SCH ×2 (11:02→22:12)
[2019-09-12] MEDS: DexAMETHasone 4 MG TAB PO SCH ×2 (11:02→22:11)
[2019-09-12] MEDS: ENOXAPARIN SOD 40 MG/0.4 ML SYRINGE SC SCH (11:03)
[2019-09-12] MEDS: HYDROcodone-ACET 5/325MG TAB PO PRN ×2 (11:07→19:23)
--- NOTE | 2019-09-12 11:07 | NUR ---
PATIENT RESFUSING TO TAKE ALL HIS MEDICATION AT THIS TIME. STATES "YOU ARE GOING TO CHOKE ME MAN". PATIENT STATES HE WILL TAKE MEDICATION LATER.
[2019-09-12 12:20] VITALS: BP 128/64
[2019-09-12] MEDS: levoFLOXacin 500 MG TAB PO SCH (12:29)
[2019-09-12] MEDS: ZINC SULFATE 220mg CAP or TAB PO SCH (12:29)
[2019-09-12] MEDS: METOPROLOL SUCCINATE XL 50 MG TAB PO SCH (12:29)
[2019-09-12] MEDS: DOXYCYCLINE 100 MG TAB/CAP PO SCH ×2 (12:30→22:12)
[2019-09-12] MEDS: ASCORBIC ACID 1,000 MG TAB PO SCH (12:30)
--- NOTE | 2019-09-12 13:00 | NUR ---
PATIENT EATING LUNCH. PATIENT REMOVED NON-REBREATHER MASK. INSTRUCTED PATIENT TO PLACE NON-REBREATHER MASK BACK ON PATIENT STATE "WELL I NEED TO EAT". PATIENT INSTRUCTED OF RISKS OF NOT USING OXYGEN. PATIENT CONTINUES TO EAT.
--- NOTE | 2019-09-12 14:30 | NUR ---
RT NOTE: ATTEMPTED TO TITRATE TO SIMPLE MASK AGAIN AND SPO2 DROPPED FROM 98 TO 87. PLACED BACK ONTO NON-REBREATHER. IT TOOK ABOUT 5 MIN FOR SPO2 TO RISE BACK UP AND WOB TO DECREASE.
--- NOTE | 2019-09-12 14:53 | NUR ---
Nutrition Followup Notes Pt wt is 62.6 kg Pt is positive for COVID. Pt is with a CCHO 75g diet, appetite is sporatic per RN doc, % PO intake not documented since 09/06. Will continue to monitor PO status, skin status, pertinent labs and weight trends. Will f/u in 3-5 days. Est energy needs 8108-8077 kcal (30-35 kcal/kg BW 64.7kg), Est protein needs 65-78g (1-1.2g/kg BW 64.7 kg). will reassess prn LABS: BUN 48 H CREAT 1.41 J ALB 2.3 L GI: Pt had 2 BM on 09/08 per RN doc BS: 20 low risk. Refer to wound assessment report for full details. PES: Altered nutrition related labs r/t chronic and current medical condition aeb pt with hyperglycemia, hypoalb Comments 1) Continue to monitor po intake, labs, skin 2) Refer pt to CDE on DC 3) Continue current plan of care
[2019-09-12] MEDS: LORazepam 0.5 MG TAB PO PRN (16:20)
--- NOTE | 2019-09-12 16:36 | NUR ---
ROUNDING: Jennie CROCKETT AT BEDSIDE. SPOKE WITH PATIENT AND ANSWERED PATIENTS QUESTIONS. THIS RN WITNESSED PATIENT STATE IN CASE OF AN EMERGENCY AND HE IS UNABLE TO MAKE DECISIONS, HE WOULD LIKE HANNY SISTER TO MAKE DECISIONS.
--- NOTE | 2019-09-12 16:48 | NUR ---
I notified the RN that the patient refuse the 1600pm vitals.
--- NOTE | 2019-09-12 18:50 | NUR ---
PATIENT PROVIDED PHONE, CHARGE AND NOTE IN A ZIPLOC BAG THAT WAS BROUGHT BY SON MEENAKSHI.
--- NOTE | 2019-09-12 20:00 | NUR ---
Opening Shift Note Assumed care of patient, awake and alert. No S/S of distress/SOB or pain. Instructed on POC and to call for assist PRN, will continue to monitor for changes Q1hr and PRN.
[2019-09-12 21:00] VITALS: BP 108/74
[2019-09-12] MEDS: REMDESIVIR 100mg in NS 230ml DAILYx4DAYS (NO VENT) IV SCH (21:00)
[2019-09-12 21:15] VITALS: BP 125/75
[2019-09-12 22:00] VITALS: BP 108/74
[2019-09-12] MEDS: ATORVASTATIN 20 MG TAB PO SCH (22:11)
[2019-09-13] VITALS (7 sets, daily range): BP systolic 113–137; BP diastolic 73–86
--- NOTE | 2019-09-13 02:17 | NUR ---
PATIENT STATED FEELING CHILLS PATIENT GIVEN WARMING MEASURES. PATIENT'S TEMP AT THIS TIME 97.7. WILL CONTINUE TO MONITOR.
[2019-09-13] MEDS: MORPHINE SULF INJ 2 MG/ML SYRINGE 1ML IV PRN ×2 (04:46→13:50)
[2019-09-13] MEDS: LOPERAMIDE HCL 2 MG CAP PO PRN ×2 (04:46→09:38)
[2019-09-13] MEDS: ACCU-CHEK COMFORT CURVE STRIP VI SCH ×5 (05:45→23:34)
[2019-09-13] MEDS: InsuLIN REG 1unit/0.01ml Soln (100units/ml) SC SCH ×5 (05:45→23:52)
[2019-09-13] MEDS: INSULIN LANTUS (GLARGINE) 1 /0.01ml (100units/ml) SC SCH ×2 (05:46→23:34)
--- NOTE | 2019-09-13 07:15 | NUR ---
Opening Shift Note Assumed care of patient after receiving report. Patient is awake and alert. Patient respirations even and unlabored, mild SOB noted. Patient on 10L of oxygen via simple mask sat 93%. Patient denies pain at this time. Call light within reach, bed in lowest position x2 side rails, HOB semi Fowlers. Instructed on POC and to call for assistance PRN, will continue to monitor for changes Q1hr and PRN.
[2019-09-13] MEDS: ALBUTEROL SULF HFA 90MCG INH 200DOSE IN SCH ×3 (07:42→22:00)
[2019-09-13 08:06] LABS: Albumin 2.4 g/dL (3.4-5.0); Calcium 8.9 mg/dL (8.5-10.1); Potassium 3.9 mmol/L (3.5-5.1)
[2019-09-13 08:09] LABS: BUN/Creatinine Ratio 36.3; Bilirubin, Total 0.4 mg/dL (0.2-1.0); Total Protein 7.2 g/dL (6.4-8.2)
[2019-09-13] MEDS: CHOLECALCIFEROL (VITD3) 1,000UNIT=25mCg TAB PO SCH (09:37)
[2019-09-13] MEDS: ENOXAPARIN SOD 40 MG/0.4 ML SYRINGE SC SCH (09:37)
[2019-09-13] MEDS: SERTRALINE HCL 50 MG TAB PO SCH (09:37)
[2019-09-13] MEDS: DexAMETHasone 4 MG TAB PO SCH ×2 (09:37→22:19)
[2019-09-13] MEDS: ZINC SULFATE 220mg CAP or TAB PO SCH (09:37)
[2019-09-13] MEDS: POTASSIUM CHL 10 Meq TABLET PO SCH (09:38)
[2019-09-13] MEDS: FUROSEMIDE 20 MG/2 ML VIAL IV SCH (09:38)
[2019-09-13] MEDS: ASCORBIC ACID 1,000 MG TAB PO SCH (09:38)
[2019-09-13] MEDS: METOPROLOL SUCCINATE XL 50 MG TAB PO SCH (09:39)
[2019-09-13] MEDS: DOXYCYCLINE 100 MG TAB/CAP PO SCH ×2 (09:39→22:19)
[2019-09-13] MEDS: PANTOPRAZOLE 40 MG TAB PO SCH ×2 (09:39→22:19)
[2019-09-13] MEDS: LORazepam 0.5 MG TAB PO PRN (09:39)
--- NOTE | 2019-09-13 13:40 | NUR ---
Pain Patient complaining of generalized pain rated 7/10. Will medicate at this time with Morphine 2mg IV q4hr PRN as per doctors orders and continue to monitor.
--- NOTE | 2019-09-13 14:20 | NUR ---
Pain reassessment Patient states pain is down to a 3/10. Patient states he is comfortable at this time. Patient repositioned in bed. Will continue care.
--- NOTE | 2019-09-13 16:00 | NUR ---
Resp Therapy upgraded O2 Oxygen therapy upgraded to 15L O2 via non rebreather. Per RT patient's saturation was remaining in low 80's on 10L O2 via simple mask he was previously on. Patient current O2 sat 97%. Will continue to monitor.
--- NOTE | 2019-09-13 19:30 | NUR ---
Opening Shift Note Assumed care of patient, awake and alert. No S/S of distress/SOB. Instructed on POC and to call for assist PRN, will continue to monitor for changes Q1hr and PRN.
[2019-09-13] MEDS: HYDROcodone-ACET 5/325MG TAB PO PRN (19:50)
[2019-09-13] MEDS: REMDESIVIR 100mg in NS 230ml DAILYx4DAYS (NO VENT) IV SCH (20:50)
--- NOTE | 2019-09-13 21:00 | NUR ---
Patient is uncooperative at times and pulling off non-rebreather mask. Patient desats quickly to 60's. Patient educated about keeping mask on at all times.
[2019-09-13] MEDS: ATORVASTATIN 20 MG TAB PO SCH (22:19)
[2019-09-13] MEDS: SODIUM BICARBONATE 650 MG TAB PO SCH (22:19)
--- NOTE | 2019-09-13 23:30 | NUR ---
Brendenter is now in the room. Patient O2 saturation at 98% and patient is not taking off mask.
[2019-09-14 05:00] VITALS: BP 145/82
[2019-09-14 05:29] LABS: Basophils # (auto) 0 10 ^3/uL (0-0.2); Eosinophils # (auto) 0 10 ^3/uL (0-0.8); Hematocrit 45.4 % (41.0-53.0); Hemoglobin 14.9 g/dL (13.5-17.5); Lymphocytes # (auto) 0.3 10 ^3/uL (0.4-5.4); Lymphocytes % (auto) 1.5 % (10.0-50.0); Mean Corpuscular Hemoglobin 31.1 pg (28.0-32.0); Mean Corpuscular Hgb Conc. 32.7 g/dL (32.0-36.0); Monocytes # (auto) 0.3 10 ^3/uL (0-1.3); Monocytes % (auto) 1.5 % (0.0-12.0); Platelet Count (auto) 163 10^3/uL (140-450); Red Blood Cells 4.78 10^6/uL (4.5-5.90); Red Cell Distribution Width 14.3 % (11.8-14.3); White Blood Cell 18.6 10^3/uL (4.4-10.8)
[2019-09-14 05:53] LABS: Potassium 4.1 mmol/L (3.5-5.1)
[2019-09-14] MEDS: ACCU-CHEK COMFORT CURVE STRIP VI SCH ×3 (05:56→18:00)
[2019-09-14 05:58] LABS: Albumin 2.3 g/dL (3.4-5.0); BUN/Creatinine Ratio 35.8; Bilirubin, Total 0.4 mg/dL (0.2-1.0); Calcium 8.8 mg/dL (8.5-10.1); Total Protein 6.6 g/dL (6.4-8.2)
[2019-09-14] MEDS: INSULIN LANTUS (GLARGINE) 1 /0.01ml (100units/ml) SC SCH ×2 (06:00→23:40)
[2019-09-14] MEDS: InsuLIN REG 1unit/0.01ml Soln (100units/ml) SC SCH ×3 (06:00→18:00)
[2019-09-14] MEDS: HYDROcodone-ACET 5/325MG TAB PO PRN ×3 (06:15→15:41)
--- NOTE | 2019-09-14 07:16 | NUR ---
Opening Shift Note Assumed care of patient after receiving report. Patient is awake and alert. Patient respirations even and unlabored, mild SOB noted. Patient on 15L of oxygen via non rebreather mask sat 93%. Patient denies pain at this time. Call light within reach, bed in lowest position x2 side rails, HOB semi Fowlers. Instructed on POC and to call for assistance PRN, will continue to monitor for changes Q1hr and PRN.
[2019-09-14 09:00] VITALS: BP 125/78
[2019-09-14] MEDS: ALBUTEROL SULF HFA 90MCG INH 200DOSE IN SCH ×3 (09:29→23:15)
[2019-09-14] MEDS: ASCORBIC ACID 1,000 MG TAB PO SCH (10:08)
[2019-09-14] MEDS: DOXYCYCLINE 100 MG TAB/CAP PO SCH ×2 (10:08→23:41)
[2019-09-14] MEDS: POTASSIUM CHL 10 Meq TABLET PO SCH (10:09)
[2019-09-14] MEDS: ENOXAPARIN SOD 40 MG/0.4 ML SYRINGE SC SCH (10:09)
[2019-09-14] MEDS: DexAMETHasone 4 MG TAB PO SCH (10:09)
[2019-09-14] MEDS: CHOLECALCIFEROL (VITD3) 1,000UNIT=25mCg TAB PO SCH (10:09)
[2019-09-14] MEDS: SERTRALINE HCL 50 MG TAB PO SCH (10:09)
[2019-09-14] MEDS: SODIUM BICARBONATE 650 MG TAB PO SCH ×2 (10:09→22:00)
[2019-09-14] MEDS: PANTOPRAZOLE 40 MG TAB PO SCH ×2 (10:09→22:00)
[2019-09-14] MEDS: LORazepam 0.5 MG TAB PO PRN (10:09)
[2019-09-14] MEDS: ZINC SULFATE 220mg CAP or TAB PO SCH (10:09)
[2019-09-14] MEDS: METOPROLOL SUCCINATE XL 50 MG TAB PO SCH (10:10)
[2019-09-14] MEDS: FUROSEMIDE 20 MG/2 ML VIAL IV SCH (10:10)
[2019-09-14] MEDS ORDERED: PIPERACILLIN-TAZOB 3.375GM 100 ML IV ONE (11:00)
[2019-09-14] MEDS ORDERED: POTASSIUM CHL 20 Meq TABLET PO ONE (11:30)
[2019-09-14] MEDS ORDERED: FUROSEMIDE 40 MG/4 ML VIAL IV ONE (11:30)
[2019-09-14] MEDS: PIPERACILLIN-TAZOB 3.375GM 100 ML IV SCH ×2 (12:20→18:00)
--- NOTE | 2019-09-14 12:20 | NUR ---
Patient refusing medications Patient refusing Lasix 40 mg IV one time order, Potassium 20meq PO one time order, Zosyn 3.375 GM/100ml one time order and scheduled order. Attempted to educate patient on importance of complying with medication treatment, patient refused education told this RN to " can you just shut up and leave me alone I already told you I'm not taking no medication. I'm done taking pills and shots". Dr. Jaramillo has been made aware.
[2019-09-14 13:00] VITALS: BP 136/87
--- NOTE | 2019-09-14 14:40 | NUR ---
Pain Patient complaining of generalized pain /10. Will medicate with Cando 5/325 tablet and continue to monitor.
--- NOTE | 2019-09-14 14:50 | NUR ---
at bedside Dr. Jaramillo at bedside. MD attempted to encourage patient to take scheduled medications to improve health. Patient maintained a rude attitute raising his voice at times stating "I'm not going to take my medications just shut up already and leave me alone." MD educated patient on risks of refusing treatment.
--- NOTE | 2019-09-14 17:30 | NUR ---
O2 levels dropping Patient continues to voluntarily remove mask. Patient O2 levels dropping to low 70's high 60's. Patient educated on risks of removing mask and instructed to place oxygen mask on. Patient refusing to place mask back on at this time.
--- NOTE | 2019-09-14 18:10 | NUR ---
Patient refused 1800 medication and accucheck.
--- NOTE | 2019-09-14 18:20 | NUR ---
Patient complaining of severe pain Patient complaining of severe generalized pain to body/muscle aches. Patient rates pain at 9/10. Patient visibly in distress. Repositioned patient for comfort. Hospitalist paged to obtain severe pain medication as there is no PRN medication in [facility] at this time for severe pain. Orders received from Dr. Malone for Morphine 2mg IV q4hr PRN for severe pain rated 7-10. Will enter orders and administer medication.
[2019-09-14] MEDS: MORPHINE SULF INJ 2 MG/ML SYRINGE 1ML IV PRN (18:52)
--- NOTE | 2019-09-14 20:30 | NUR ---
REMDESIVIR ADMINISTERED VS: T 98.6, BP 117/77, 95%, HR 75, RR 24. Patient A&Ox4 without s/s of distress at this time.
[2019-09-14] MEDS: REMDESIVIR 100mg in NS 230ml DAILYx4DAYS (NO VENT) IV SCH (20:50)
[2019-09-14 21:00] VITALS: BP 117/77
[2019-09-14] MEDS: ATORVASTATIN 20 MG TAB PO SCH (22:00)
--- NOTE | 2019-09-14 22:30 | NUR ---
Patient VS: HR 66, RR 20, 92%, BP 140/82. Patient A&O, denying any pain at this time and showing no s/s of distress at this time. Will continue to monitor.
--- NOTE | 2019-09-15 00:15 | NUR ---
Patients family called Spoke to sister, discussed patients status and POC.
[2019-09-15] MEDS: ACCU-CHEK COMFORT CURVE STRIP VI SCH ×5 (00:31→23:03)
[2019-09-15] MEDS: PIPERACILLIN-TAZOB 3.375GM 100 ML IV SCH ×5 (00:32→23:03)
--- NOTE | 2019-09-15 03:09 | NUR ---
Patient to BSC Patient soiled, changed linens, while patient on BSC. Patient O2sat decreased to 87%. Assisted back into bed. O2sat increased to 90%. Will continue to monitor.
[2019-09-15] MEDS: ALBUTEROL SULF HFA 90MCG INH 200DOSE IN SCH ×3 (06:01→22:29)
[2019-09-15] MEDS: InsuLIN REG 1unit/0.01ml Soln (100units/ml) SC SCH ×5 (06:02→23:03)
[2019-09-15] MEDS: INSULIN LANTUS (GLARGINE) 1 /0.01ml (100units/ml) SC SCH ×2 (06:03→22:29)
[2019-09-15 09:00] VITALS: BP 110/72
[2019-09-15] MEDS: SERTRALINE HCL 50 MG TAB PO SCH (10:00)
[2019-09-15] MEDS: ZINC SULFATE 220mg CAP or TAB PO SCH (10:00)
[2019-09-15] MEDS: PANTOPRAZOLE 40 MG TAB PO SCH ×2 (10:00→22:22)
[2019-09-15] MEDS: METOPROLOL SUCCINATE XL 50 MG TAB PO SCH (10:00)
[2019-09-15] MEDS: ENOXAPARIN SOD 40 MG/0.4 ML SYRINGE SC SCH (10:00)
[2019-09-15] MEDS: SODIUM BICARBONATE 650 MG TAB PO SCH ×2 (10:00→22:21)
[2019-09-15] MEDS: POTASSIUM CHL 20 Meq TABLET PO SCH (10:00)
[2019-09-15] MEDS: DOXYCYCLINE 100 MG TAB/CAP PO SCH ×2 (10:00→22:21)
[2019-09-15] MEDS: ASCORBIC ACID 1,000 MG TAB PO SCH (10:00)
[2019-09-15] MEDS: FUROSEMIDE 40 MG/4 ML VIAL IV SCH (10:00)
[2019-09-15] MEDS: CHOLECALCIFEROL (VITD3) 1,000UNIT=25mCg TAB PO SCH (10:00)
[2019-09-15] MEDS: HYDROcodone-ACET 5/325MG TAB PO PRN ×2 (10:09→18:56)
--- NOTE | 2019-09-15 10:11 | NUR ---
Patient refusing 1000 medications at this time PAtient educated on importance of following medication treatment. Patient continues to refuse medication but is requesting Roscoe for pain management. Patient states generalized pain 8/10 but refuses Morphine for severe pain and states Roscoe works best for him. Will give Roscoe 5/325 1 tab PRN q4hr for pain.
--- NOTE | 2019-09-15 10:30 | NUR ---
Wasted medication Patient was requesting Ferguson for pain management. Patient refused medication when brought to him. Medication wasted in Pyxis at this time. Patient siting at side of bed visibly SOB, patient instructed to put face mask back on. Patient refusing. This RN offered help placing and securin non rebreathing mask on patient refused any help.
--- NOTE | 2019-09-15 11:04 | NUR ---
paged Patient sitting on side of bed visibly SOB and labored respirations O2 sats dropping to 63-67% on room air. Patient refusing to place non rebreather mask on. This RN attempted to place mask on patient continues to remove it. Patient alert and oriented an voluntarily refusing O2 treatment. Patient continues to ask for "help" but when asked what does he need he doesn't verbalize needs. paged at this time to notify refusal of treatment, awaiting call back.
--- NOTE | 2019-09-15 11:15 | NUR ---
Attempted to call family Attempted to call patient's son Nehemiah Huston to update on patient's declining condition and patient refusing treatment. Phone call not answered unable to leave voice message. Will attempt again at a later time.
--- NOTE | 2019-09-15 11:39 | NUR ---
Patient refusing 1200 medication Patient refusing 1200 scheduled antibiotic and accucheck at this time. Patient informed of risks of declining antibiotic and risks of not having blood sugar monitored. Patient continues to refuse. Will notify MD and continue care.
[2019-09-15 13:00] VITALS: BP 153/85
--- NOTE | 2019-09-15 14:06 | NUR ---
O2 sat dropped O2 sat currently on 62% on room air. Patient refusing to put non rebreathing mask on at this moment. MD has been made aware of patient resisting treatment. Will continue to monitor.
--- NOTE | 2019-09-15 14:40 | NUR ---
Nutrition Followup Notes Pt wt is 62.0 kg Pt is positive for COVID. Pt is with a CCHO 75g diet, appetite is sporadic per RN doc, pt with 41 % PO intake x 3 days that is recorded per RN doc. Pt refusing meds and treatment per RN note. Will continue to monitor PO status, skin status, pertinent labs and weight trends. Will f/u in 3-5 days. Est energy needs 1791-5129 kcal (30-35 kcal/kg BW 64.7kg), Est protein needs 65-78g (1-1.2g/kg BW 64.7 kg). will reassess prn LABS: BUN 19H, GLUC 286H, Alb 3.2L GI: Pt had 1 BM on 09/14 per RN doc BS: 20 low risk. Refer to wound assessment report for full details. PES: Altered nutrition related labs r/t chronic and current medical condition aeb pt with hyperglycemia, hypoalb Comments 1) Continue to monitor po intake, labs, skin 2) Refer pt to CDE on DC 3) Continue current plan of care Addendum: 09/15/19 at [address] Pt labs are incorrect in note Labs: POC GLUC 262H, BUN 53H, Creat 1.48H, Alb 2.3L
--- NOTE | 2019-09-15 15:30 | NUR ---
Spoke with family Spoke with patient's family regarding patient's condition and refusal to receive treatment. Family expressed concern and verbalized that they had been attempting to call their father without success. Patient had been refusing their calls. dae Sousa informed this RN has made several attempts to contact them to give update on patient, read back contact number and was informed that is an old call back number. Contact phone number in system updated at this time. All questions and concerns addressed, call transferred to patient's room. This RN assisted patient with answering and holding phone, patient spoke with family briefly.
[2019-09-15 17:00] VITALS: BP 112/73
--- NOTE | 2019-09-15 19:20 | NUR ---
Opening shift note Assumed care of patient from day RNTri. Patient A&Ox4, Patient returning from [facility] [place]. Talked to patient regarding POC for the night. Non-rebreather at 15L. Sitter bedside. Bed in lowest locked position with 2 side rails up. Call light within reach, will continue to monitor.
--- NOTE | 2019-09-15 19:30 | NUR ---
[facility] Hospitalist, Dr. Malone.
--- NOTE | 2019-09-15 19:40 | NUR ---
Dr. Malone returned call Discussed LUCRETIA order for patient. Unable to cancel LUCRETIA order at this time.
[2019-09-15] MEDS ORDERED: REMDESIVIR 100mg in NS 230ml DAILYx4DAYS (NO VENT) IV SCH (20:00)
[2019-09-15 22:00] VITALS: BP 94/66
[2019-09-15] MEDS: ATORVASTATIN 20 MG TAB PO SCH (22:21)
[2019-09-15 23:01] VITALS: BP 131/80
[2019-09-15] MEDS: MORPHINE SULF INJ 2 MG/ML SYRINGE 1ML IV PRN (23:02)
--- NOTE | 2019-09-15 23:35 | NUR ---
Pain Patient c/o 8/10 body pain and requested morphine. VS 131/80, HR 82, O2sat 98%. Administered 2 mg Morphine per EMAR. Will continue to monitor.
--- NOTE | 2019-09-15 23:45 | NUR ---
Pain Reassessed Patient sleeping, respirations even without s/s of distress. VS WDL, O2sat 95%. Will continue to monitor.
[2019-09-16 04:17] VITALS: BP 131/80
[2019-09-16 05:00] VITALS: BP 123/82
[2019-09-16] MEDS: InsuLIN REG 1unit/0.01ml Soln (100units/ml) SC SCH ×3 (06:00→17:47)
--- NOTE | 2019-09-16 06:45 | NUR ---
Family called to discuss patient POC
[2019-09-16] MEDS: INSULIN LANTUS (GLARGINE) 1 /0.01ml (100units/ml) SC SCH ×2 (07:00→22:00)
[2019-09-16] MEDS: PIPERACILLIN-TAZOB 3.375GM 100 ML IV SCH ×4 (07:06→23:42)
[2019-09-16] MEDS: ACCU-CHEK COMFORT CURVE STRIP VI SCH ×3 (07:06→17:47)
[2019-09-16] MEDS: ALBUTEROL SULF HFA 90MCG INH 200DOSE IN SCH ×3 (08:48→22:30)
[2019-09-16 08:54] VITALS: BP 108/63
[2019-09-16] MEDS: ZINC SULFATE 220mg CAP or TAB PO SCH (10:00)
[2019-09-16] MEDS: FUROSEMIDE 40 MG/4 ML VIAL IV SCH (10:00)
[2019-09-16] MEDS: PANTOPRAZOLE 40 MG TAB PO SCH ×2 (10:00→22:00)
[2019-09-16] MEDS: CHOLECALCIFEROL (VITD3) 1,000UNIT=25mCg TAB PO SCH (10:00)
[2019-09-16] MEDS: SODIUM BICARBONATE 650 MG TAB PO SCH ×2 (10:00→22:00)
[2019-09-16] MEDS: ENOXAPARIN SOD 40 MG/0.4 ML SYRINGE SC SCH (10:00)
[2019-09-16] MEDS: METOPROLOL SUCCINATE XL 50 MG TAB PO SCH (10:00)
[2019-09-16] MEDS: DOXYCYCLINE 100 MG TAB/CAP PO SCH ×2 (10:00→22:00)
[2019-09-16] MEDS: ASCORBIC ACID 1,000 MG TAB PO SCH (10:00)
[2019-09-16] MEDS: POTASSIUM CHL 20 Meq TABLET PO SCH (10:00)
[2019-09-16] MEDS: SERTRALINE HCL 50 MG TAB PO SCH (10:00)
--- NOTE | 2019-09-16 10:30 | NUR ---
Patient refuses medication per patient " leave me alone, I don't want it" educated patient on importance of taking medication, patient screamed "I don't care and leave me alone".
--- NOTE | 2019-09-16 12:00 | NUR ---
Patient refuse medication Patient refusing 1200 zosyn per patient "I dont want it" educated on importance of medication and risk of not receiving medication. Patient stated "I dont want it" patient became angry and repeatedly shook head no and stated "I don't want it". Will inform MD.
[2019-09-16 13:00] VITALS: BP 118/74
[2019-09-16 17:00] VITALS: BP 123/79
--- NOTE | 2019-09-16 17:47 | NUR ---
PATIENT REFUSED MEDICATION PATIENT REFUSE 1800 ZOSYN. ACCU-CHECK WAS 137 PATIENT REFUSE INSULIN COVERAGE. PATIENT EDUCATED ON BENEFITS AND RISK OF RECEIVING MEDICATION. PATIENT STILL REFUSED.
--- NOTE | 2019-09-16 21:17 | NUR ---
PATIENT REFUSED BLOOD DRAWS AT THIS TIME.
[2019-09-16 21:56] VITALS: BP 106/63
[2019-09-16] MEDS: ATORVASTATIN 20 MG TAB PO SCH (22:00)
--- NOTE | 2019-09-16 22:30 | NUR ---
PATIENT REFUSED ALL MEDICATION INCLUDING LANTUS. Educated on the risks/benefits of his prescribed medications. Patient still refused his medications.
[2019-09-16] MEDS: HYDROcodone-ACET 5/325MG TAB PO PRN (23:43)
--- NOTE | 2019-09-16 23:45 | NUR ---
Pain Patient having pain, requested Diller for 6/10 upper body pain. Administered Diller per EMAR. Will continue to monitor.
--- NOTE | 2019-09-17 00:15 | NUR ---
Patient O2sat in the 70's. Patient using BSC. Assisted patient back into bed. Educated on breathing deeply and keeping the mask in place. Patient O2sat increased to 97%. Patient resting, will continue to monitor. Sitter bedside.
--- NOTE | 2019-09-17 00:30 | NUR ---
Pain reassessed/BG test Patient stated that he felt better. Patient allowed a blood sugar test and prescribed Zosyn to be taken at this time. BG 71, patient requested and given two juice boxes. Current O2sat at 97%. Will continue to monitor.
[2019-09-17] MEDS: ACCU-CHEK COMFORT CURVE STRIP VI SCH ×4 (00:41→17:50)
[2019-09-17 05:19] VITALS: BP 116/76
[2019-09-17] MEDS: HYDROcodone-ACET 5/325MG TAB PO PRN ×2 (05:28→06:08)
[2019-09-17] MEDS: InsuLIN REG 1unit/0.01ml Soln (100units/ml) SC SCH ×4 (06:00→17:50)
--- NOTE | 2019-09-17 06:10 | NUR ---
Patient c/o pain Brought Lueders to the bedside after patient requested it. Patient refused the medication and stated that he would like morphine instead. Medication wasted. DAVID rodriguez.
--- NOTE | 2019-09-17 06:12 | NUR ---
IV insertion IV access obtained, via clean sterile technique by inserting 20 gauge catheter at right FA. IV secured properly. No trauma to site. Patient tolerated well.
--- NOTE | 2019-09-17 06:13 | NUR ---
IV removal IV leaking to right hand, DC'd with clean sterile technique, catheter fully intact. Pressure dressing applied to site. Patient tolerated well.
[2019-09-17] MEDS: INSULIN LANTUS (GLARGINE) 1 /0.01ml (100units/ml) SC SCH ×2 (06:29→22:00)
[2019-09-17] MEDS: PIPERACILLIN-TAZOB 3.375GM 100 ML IV SCH ×3 (06:29→17:49)
[2019-09-17] MEDS: MORPHINE SULF INJ 2 MG/ML SYRINGE 1ML IV PRN (06:30)
--- NOTE | 2019-09-17 07:39 | NUR ---
OPENING SHIFT NOTE Assumed care of patient. PT is awake and alert. No S/S of distress. PT on 15L o2 VIA non rebreather mask. Saturation is 91%. Sitter at bedside. Instructed on POC and to call for assist PRN. Fall precautions in place per safety protocol. Will continue to monitor for changes Q1hr and PRN.
[2019-09-17 09:00] VITALS: BP 117/74
[2019-09-17] MEDS: ASCORBIC ACID 1,000 MG TAB PO SCH (10:00)
[2019-09-17] MEDS: PANTOPRAZOLE 40 MG TAB PO SCH ×2 (10:00→22:00)
[2019-09-17] MEDS: ZINC SULFATE 220mg CAP or TAB PO SCH (10:00)
[2019-09-17] MEDS: CHOLECALCIFEROL (VITD3) 1,000UNIT=25mCg TAB PO SCH (10:00)
[2019-09-17] MEDS: POTASSIUM CHL 20 Meq TABLET PO SCH (10:00)
[2019-09-17] MEDS: FUROSEMIDE 40 MG/4 ML VIAL IV SCH (10:00)
[2019-09-17] MEDS: DOXYCYCLINE 100 MG TAB/CAP PO SCH ×2 (10:00→22:00)
[2019-09-17] MEDS: ENOXAPARIN SOD 40 MG/0.4 ML SYRINGE SC SCH (10:00)
[2019-09-17] MEDS: METOPROLOL SUCCINATE XL 50 MG TAB PO SCH (10:00)
--- NOTE | 2019-09-17 10:05 | NUR ---
SPOKE WITH PT'S DAUGHTER IN LAW. SHE REQUESTED TO SPEAK WITH CHARGE NURSE. CHARGE NURSE LILLY IS AWARE. CALL BACK NUMBER IS [phone].
[2019-09-17] MEDS: ALBUTEROL SULF HFA 90MCG INH 200DOSE IN SCH ×2 (11:30→16:19)
[2019-09-17 13:00] VITALS: BP 109/56
--- NOTE | 2019-09-17 14:49 | NUR ---
spoke with pt regarding tele psych. pt refused to do tele psych. will notify
[2019-09-17 17:00] VITALS: BP 110/65
[2019-09-17] MEDS: SERTRALINE HCL 50 MG TAB PO SCH (17:00)
[2019-09-17] MEDS: SODIUM BICARBONATE 650 MG TAB PO SCH ×2 (17:00→22:00)
--- NOTE | 2019-09-17 17:08 | NUR ---
PT REFUSING ALL MEDICATIONS TODAY. AGREED TO TAKE AM ZOLOFT AND SODIUM BICARB TABLETS ONLY.
[2019-09-17] MEDS: Ensure HIGH Protein Chocolate 8oz Bottle PO SCH (17:50)
--- NOTE | 2019-09-17 20:00 | NUR ---
Opening Shift Note Assumed care of patient. Drowsy and oriented x4. Pt in on non-rebreather at 15L, O2 sat is 98%. Sitter at bedside. Instructed on POC and to call for assist PRN. Bed locked, in lowest position, call light within reach, side rails up x2. Will continue to monitor for changes Q1hr and PRN.
--- NOTE | 2019-09-17 20:50 | NUR ---
Hospitalist paged Patients HR in 160s. Awaiting call back
--- NOTE | 2019-09-17 21:10 | NUR ---
Call back from hospitalist New orders received. Will implement orders and continue care
[2019-09-17] MEDS ORDERED: METOPROLOL SUCCINATE XL 50 MG TAB PO ONE (21:15)
[2019-09-17 22:00] VITALS: BP 112/56
[2019-09-17] MEDS: ATORVASTATIN 20 MG TAB PO SCH (22:00)
--- NOTE | 2019-09-17 22:00 | NUR ---
Blood sugar assessed at 46 Protocol followed. Pt given 8 oz of cranberry juice. Assessed 10 min later blood sugar 40. Given 2 more ounces of cranberry juice. Will continue to monitor
--- NOTE | 2019-09-17 22:40 | NUR ---
Pt refused most of his meds Educated pt on the need for medications. Was compliant with taking metoprolol 25 mg but refused the rest. Will continue to monitor.
--- NOTE | 2019-09-17 22:45 | NUR ---
AT BEDSIDE FOR MDI, SPO2 NOTED AT 100% ON NRB. NOTIFIED RN SHE CAN TITRATE PT TO A 12L OXYMIZER AFTER PATIENT IS CLEANED.
--- NOTE | 2019-09-17 23:00 | NUR ---
Blood sugar reassessed at 98. Will continue to monitor
[2019-09-18] MEDS: ALBUTEROL SULF HFA 90MCG INH 200DOSE IN SCH ×4 (00:19→23:00)
[2019-09-18] MEDS: ACCU-CHEK COMFORT CURVE STRIP VI SCH ×4 (00:22→18:00)
[2019-09-18] MEDS: PIPERACILLIN-TAZOB 3.375GM 100 ML IV SCH ×4 (00:55→18:00)
[2019-09-18 05:00] VITALS: BP 109/73
[2019-09-18] MEDS: InsuLIN REG 1unit/0.01ml Soln (100units/ml) SC SCH ×4 (06:00→18:00)
--- NOTE | 2019-09-18 06:24 | NUR ---
Pt refused labs Tech will try again at a later time
[2019-09-18] MEDS: INSULIN LANTUS (GLARGINE) 1 /0.01ml (100units/ml) SC SCH ×2 (06:53→22:00)
--- NOTE | 2019-09-18 06:54 | NUR ---
Pt refused finger stick Educated pt on need for checking blood sugar. Pt continued to refuse. Will endorse to day shift RN
--- NOTE | 2019-09-18 07:48 | NUR ---
OPENING SHIFT NOTE Resumed care of patient. PT is awake and alert. No S/S of distress or pain. PT is now on 12L O2 via non rebreather. PT does not want to use Oxymizer. Sitter at bedside. Instructed on POC and to call for assist PRN. Fall precautions in place per safety protocol. Will continue to monitor for changes Q1hr and PRN.
[2019-09-18 09:00] VITALS: BP 108/76
[2019-09-18] MEDS: CHOLECALCIFEROL (VITD3) 1,000UNIT=25mCg TAB PO SCH (10:00)
[2019-09-18] MEDS: FUROSEMIDE 40 MG/4 ML VIAL IV SCH (10:00)
[2019-09-18] MEDS: DOXYCYCLINE 100 MG TAB/CAP PO SCH ×2 (10:00→22:00)
[2019-09-18] MEDS: ZINC SULFATE 220mg CAP or TAB PO SCH (10:00)
[2019-09-18] MEDS: ASCORBIC ACID 1,000 MG TAB PO SCH (10:00)
[2019-09-18] MEDS: ENOXAPARIN SOD 40 MG/0.4 ML SYRINGE SC SCH (10:00)
[2019-09-18] MEDS: PANTOPRAZOLE 40 MG TAB PO SCH ×2 (10:00→22:00)
[2019-09-18] MEDS: Ensure HIGH Protein Chocolate 8oz Bottle PO SCH ×2 (10:25→19:07)
[2019-09-18] MEDS: METOPROLOL SUCCINATE XL 50 MG TAB PO SCH (10:26)
[2019-09-18] MEDS: SERTRALINE HCL 50 MG TAB PO SCH (10:27)
[2019-09-18] MEDS: MORPHINE SULF INJ 2 MG/ML SYRINGE 1ML IV PRN ×2 (10:28→14:41)
[2019-09-18 12:43] VITALS: BP 113/70
[2019-09-18 17:00] VITALS: BP 111/73
--- NOTE | 2019-09-18 19:40 | NUR ---
Opening Shift Note Assumed care of patient, awake and alert. No S/S of distress/SOB or pain. Instructed on POC, bed locked in lowest position with side rails up x2 for safety. Sitter at bedside, call light is within reach and patient is encouraged to call for assistance PRN, will continue to monitor for changes Q1hr and PRN.
--- NOTE | 2019-09-18 20:05 | NUR ---
IV is infiltrated. Patient refusing to take it out. Patient also refusing to have new IV placed. Will continue to monitor.
[2019-09-18 22:00] VITALS: BP 96/65
[2019-09-18] MEDS: ATORVASTATIN 20 MG TAB PO SCH (22:00)
--- NOTE | 2019-09-18 22:42 | NUR ---
Patient with blood glucose of 57, Will page hospitalist per protocol.
--- NOTE | 2019-09-18 22:57 | NUR ---
Patient refused to drink juice and refusing dextrose. Sugar water offered, 4 packets of sugar given in water patient is drinking it. Will recheck glucose in 15 minutes and continue to monitor.
[2019-09-18] MEDS: DEXTROSE 10% 1,000 ML IV SCH (23:15)
--- NOTE | 2019-09-18 23:19 | NUR ---
Glucose recheck glucose is 73. Will continue to monitor.
--- NOTE | 2019-09-18 23:25 | NUR ---
New orders received, however patient is refusing medication as well as refusing new IV. Patient pointed finger at me, stating "GET OUT OF HERE!" Will continue to monitor and encourage him to drink water with sugar.
[2019-09-19] VITALS (7 sets, daily range): BP systolic 96–127; BP diastolic 56–78
[2019-09-19] MEDS: ACCU-CHEK COMFORT CURVE STRIP VI SCH ×4 (00:04→17:48)
--- NOTE | 2019-09-19 01:13 | NUR ---
IV insertion Resource RN was able to obtain IV access via clean sterile technique by inserting 22 gauge catheter at right hand after 1 attempt. IV secured properly. No trauma to site. Patient tolerated well.
[2019-09-19] MEDS ORDERED: DEXTROSE 10% 1,000 ML IV ONE (01:25)
[2019-09-19] MEDS: DEXTROSE 10% 1,000 ML IV SCH (01:47)
--- NOTE | 2019-09-19 01:47 | NUR ---
Patient being more cooperative, asked to start Dextrose 10% 1,000ml per orders, patient agreed. Now running at 40ml/hr in left hand 22g IV site. Will continue to monitor.
[2019-09-19] MEDS: InsuLIN REG 1unit/0.01ml Soln (100units/ml) SC SCH ×3 (05:50→12:00)
[2019-09-19] MEDS: PIPERACILLIN-TAZOB 3.375GM 100 ML IV SCH ×3 (06:01→12:21)
[2019-09-19 07:27] LABS: Hematocrit 46.1 % (41.0-53.0); Hemoglobin 15.1 g/dL (13.5-17.5); Mean Corpuscular Hgb Conc. 32.8 g/dL (32.0-36.0); Mean Corpuscular Volume 94.5 fL (80.0-100.0); Platelet Count (auto) 80 10^3/uL (140-450); Red Blood Cells 4.87 10^6/uL (4.5-5.90); Red Cell Distribution Width 14.3 % (11.8-14.3); White Blood Cell 22.7 10^3/uL (4.4-10.8)
[2019-09-19 07:33] LABS: Basophils % (manual) 0 (0.0-2.0); Blast Cells 0; Eosinophils % (manual) 0 (0-7); Metamyelocytes % 0; Monocytes % (manual) 0 (0-12); Myelocytes % 0; Potassium 3.5 mmol/L (3.5-5.1); Promyelocytes % 0; Reactive Lymphocytes 0
[2019-09-19 07:37] LABS: BUN/Creatinine Ratio 39.7; Calcium 8.6 mg/dL (8.5-10.1)
[2019-09-19 08:35] LABS: Band Neutrophils % (manual) 2; Lymphocytes % (manual) 5 (10.0-50.0)
[2019-09-19] MEDS: ALBUTEROL SULF HFA 90MCG INH 200DOSE IN SCH ×2 (09:10→15:25)
--- NOTE | 2019-09-19 09:10 | NUR ---
UPON ARRIVAL, PT. HAD HIS NON-REBREATHER MASK OFF, SATS 77%. PLACED PT. BACK ON NRB AT 15LPM, SP02 92%. PT. TOOK A FEW MINUTES TO COME BACK UP. Addendum: 09/19/19 at 0928 by Kamilla Castro RT Amended: Links added.
[2019-09-19] MEDS: ENOXAPARIN SOD 40 MG/0.4 ML SYRINGE SC SCH (10:00)
[2019-09-19] MEDS: DOXYCYCLINE 100 MG TAB/CAP PO SCH ×2 (10:00→22:00)
[2019-09-19] MEDS: SERTRALINE HCL 50 MG TAB PO SCH (10:00)
[2019-09-19] MEDS: ASCORBIC ACID 1,000 MG TAB PO SCH (10:00)
[2019-09-19] MEDS: FUROSEMIDE 40 MG/4 ML VIAL IV SCH (10:00)
[2019-09-19] MEDS: METOPROLOL SUCCINATE XL 50 MG TAB PO SCH (10:00)
[2019-09-19] MEDS: PANTOPRAZOLE 40 MG TAB PO SCH ×2 (10:00→22:00)
[2019-09-19] MEDS: CHOLECALCIFEROL (VITD3) 1,000UNIT=25mCg TAB PO SCH (10:00)
[2019-09-19] MEDS: ZINC SULFATE 220mg CAP or TAB PO SCH (10:00)
--- NOTE | 2019-09-19 10:00 | NUR ---
REFUSING MEDS PATIENT REFUSING MEDICATIONS. PATIENT EDUCATED ON THE PURPOSE OF EACH MEDICATION BUT STILL SAID HE DOES NOT WANT THEM.
[2019-09-19] MEDS: Ensure HIGH Protein Chocolate 8oz Bottle PO SCH ×2 (10:31→17:47)
[2019-09-19] MEDS: MORPHINE SULF INJ 2 MG/ML SYRINGE 1ML IV PRN (10:34)
--- NOTE | 2019-09-19 11:46 | NUR ---
Nutrition Followup Notes Pt wt is 58.1 kg Pt is positive for COVID. Pt is with a CCHO 75g diet, appetite is poor aeb pt with an avg po intake of 12.5% x 3 days per the recorded meals from RN nutrition note. Consider Glucerna 1 carton TID d/t higher calories. Will continue to monitor PO status, skin status, pertinent labs and weight trends. Will f/u in 3-5 days. Est energy needs 8539-8957 kcal (30-35 kcal/kg BW 64.7kg), Est protein needs 65-78g (1-1.2g/kg BW 64.7 kg). will reassess prn LABS: BUN 56H, Creat 1.41H, Gluc 128H, Alb 2.3L GI: Pt had 2 BMs on 09/18 per RN doc BS: 17 mod risk. Refer to wound assessment report for full details. PES: Altered nutrition related labs r/t chronic and current medical condition aeb pt with hyperglycemia, hypoalb Comments 1) Continue to monitor po intake, labs, skin 2) Refer pt to CDE on DC 3) Continue current plan of care
--- NOTE | 2019-09-19 13:00 | NUR ---
DR CROCKETT BEDSIDE WITH PATIENT. ORDERS RECEIVED TO D/C INSULIN, ORDER CARRIED OUT
[2019-09-19] MEDS ORDERED: CLINDAMYCIN 300MG IV 50 ML IV ONE (17:45)
[2019-09-19] MEDS ORDERED: MEROPENEM 1GM IVPB 100 ML IV ONE (18:00)
--- NOTE | 2019-09-19 18:00 | NUR ---
ALL IV LINES CHANGED PER DR DASH
[2019-09-19] MEDS ORDERED: FUROSEMIDE 40 MG/4 ML VIAL IV ONE (18:15)
[2019-09-19] MEDS: ATORVASTATIN 20 MG TAB PO SCH (22:00)
--- NOTE | 2019-09-19 22:00 | NUR ---
PATIENT REFUSED ALL PO MEDICATION, AGREED TO IV MEDICATION CLINDAMYCIN 300MG
[2019-09-19] MEDS: CLINDAMYCIN 300MG IV 50 ML IV SCH (22:07)
[2019-09-20] MEDS: ACCU-CHEK COMFORT CURVE STRIP VI SCH ×5 (00:08→23:25)
[2019-09-20] MEDS: MEROPENEM 1GM IVPB 100 ML IV SCH ×3 (01:43→17:51)
[2019-09-20 05:11] VITALS: BP 106/68
[2019-09-20] MEDS: MORPHINE SULF INJ 2 MG/ML SYRINGE 1ML IV PRN ×2 (05:17→16:55)
[2019-09-20] MEDS: CLINDAMYCIN 300MG IV 50 ML IV SCH ×3 (06:08→22:04)
[2019-09-20 08:00] VITALS: BP 116/71
[2019-09-20] MEDS: Ensure HIGH Protein Chocolate 8oz Bottle PO SCH ×2 (08:00→17:51)
[2019-09-20] MEDS: ALBUTEROL SULF HFA 90MCG INH 200DOSE IN SCH ×4 (08:38→23:00)
[2019-09-20 09:00] VITALS: BP 116/71
[2019-09-20] MEDS: SERTRALINE HCL 50 MG TAB PO SCH (10:00)
[2019-09-20] MEDS: ASCORBIC ACID 1,000 MG TAB PO SCH (10:00)
[2019-09-20] MEDS: METOPROLOL SUCCINATE XL 50 MG TAB PO SCH (10:00)
[2019-09-20] MEDS: ZINC SULFATE 220mg CAP or TAB PO SCH (10:00)
[2019-09-20] MEDS: FUROSEMIDE 40 MG/4 ML VIAL IV SCH (10:00)
[2019-09-20] MEDS ORDERED: FUROSEMIDE 40 MG/4 ML VIAL IV SCH (10:00)
[2019-09-20] MEDS: PANTOPRAZOLE 40 MG TAB PO SCH ×4 (10:00→22:38)
[2019-09-20] MEDS: CHOLECALCIFEROL (VITD3) 1,000UNIT=25mCg TAB PO SCH (10:00)
[2019-09-20] MEDS: DOXYCYCLINE 100 MG TAB/CAP PO SCH (10:00)
--- NOTE | 2019-09-20 10:15 | NUR ---
PATIENT REFUSING ALL MEDICATIONS BUT THE MERREM. PATIENT EDUCATED ON PURPOSE OF MEDICATIONS BUT PATIENT STILL RESPONDED THAT HE DOES NOT WANT THEM. DOCTOR INFORMED.
--- NOTE | 2019-09-20 14:04 | NUR ---
PATIENT REFUSING TO BE RE-POSITION EVEN THOUGH HE CAN MOVE HIMSELF. PATIENT ALSO REFUSING TO BE CLEANED BY THIS NA . EDUCATED THE PATIENT ABOUT THE IMPORTANCE OF CLEAN SKIN TO PREVENT SKIN BRAKE DOWN. PATIENT STATED " NO! I DON'T CARE. ALL YOUR GOING TO DO IS CAUSE ME TO HAVE A PANIC ATTACK. SO NO LEAVE ME ALONE! " LOUANN (DAVID) HERE TO WITNESS. WILL INFORM JENNA AMADO.
--- NOTE | 2019-09-20 16:16 | NUR ---
PATIENT REFUSING TO GET OUT OF BED OR TURN IN BED. PATIENT EDUCATED ON THE IMPORTANCE BUT STATED "TO LEAVE HIM ALONE".
[2019-09-20 16:34] LABS: BUN/Creatinine Ratio 33.3; Calcium 8.8 mg/dL (8.5-10.1); Potassium 3.7 mmol/L (3.5-5.1)
[2019-09-20 17:00] VITALS: BP 118/70
--- NOTE | 2019-09-20 17:00 | NUR ---
PATIENT REFUSED TO CHANGE AND ALSO REFUSED A BATH
[2019-09-20 18:04] LABS: Hematocrit 47.3 % (41.0-53.0); Hemoglobin 15.7 g/dL (13.5-17.5); Mean Corpuscular Hemoglobin 30.7 pg (28.0-32.0); Mean Corpuscular Hgb Conc. 33.2 g/dL (32.0-36.0); Mean Corpuscular Volume 92.6 fL (80.0-100.0); Red Cell Distribution Width 13.8 % (11.8-14.3); White Blood Cell 23.2 10^3/uL (4.4-10.8)
[2019-09-20 18:16] LABS: Platelet Count (auto) 67 10^3/uL (140-450)
[2019-09-20 18:17] LABS: Band Neutrophils % (manual) 0; Basophils % (manual) 0 (0.0-2.0); Blast Cells 0; Metamyelocytes % 0; Myelocytes % 0; Promyelocytes % 0; Reactive Lymphocytes 0
[2019-09-20 18:19] LABS: Eosinophils % (manual) 1 (0-7); Lymphocytes % (manual) 2 (10.0-50.0); Monocytes % (manual) 1 (0-12)
--- NOTE | 2019-09-20 19:30 | NUR ---
Opening Shift Note Assumed care of patient from [facility]. Drowsy and oriented x4. Pt in on non-rebreather at 15L, O2 sat is 98%. Sitter at bedside. Bed locked, in lowest position, call light within reach, side rails up x2. Will continue to monitor for changes Q1hr and PRN.
[2019-09-20 20:00] VITALS: BP 118/70
[2019-09-20 21:50] VITALS: BP 124/78
[2019-09-20] MEDS: ATORVASTATIN 20 MG TAB PO SCH ×3 (22:00→22:40)
--- NOTE | 2019-09-20 22:01 | NUR ---
PATIENT STILL REFUSED TO BE CHANGED PADS ARE DIRTY UNDER HIM
[2019-09-20] MEDS: LORazepam 0.5 MG TAB PO PRN (22:05)
--- NOTE | 2019-09-20 22:35 | NUR ---
Patient Refused Medications Patient was putting PO medications in mouth when he started to breathe heavily. Patient put them back in my hand and could only take half of his anti anxiety medication. Patient was having a hard time consuming water with medication and refused the other medications by mouth.
[2019-09-21] VITALS (7 sets, daily range): BP systolic 51–120; BP diastolic 34–79
[2019-09-21] MEDS: MORPHINE SULF INJ 2 MG/ML SYRINGE 1ML IV PRN (00:22)
--- NOTE | 2019-09-21 00:33 | NUR ---
Patient Complains of Generalized Pain Patient given pain medication as prescribed. Will continue to monitor.
--- NOTE | 2019-09-21 00:42 | NUR ---
Patient Agreed to Drink Ensure Patient did not eat his dinner and refused previously to eat any food. Spoke with patient about trying his Ensure on ice and patient was willing to drink it. Patient was educated about dietary needs. Will continue to monitor.
--- NOTE | 2019-09-21 01:30 | NUR ---
PATIENT STILL REFUSING TO GET CLEANED UP NOTIFIED THE NURSE
[2019-09-21] MEDS: MEROPENEM 1GM IVPB 100 ML IV SCH ×3 (01:47→18:25)
--- NOTE | 2019-09-21 01:47 | NUR ---
Patient De-saturated to 60's Upon entering patient room, patient was using accessory muscles to breathe on 15L non-rebreather mask. Patient then took off mask and said "I can't breathe." Patient was told to keep mask on and told to calm his breathing down from 28 respirations per minute. RT was Paged and came to reassess patient. Patient is currently still on 15L w/ non-rebreather mask saturating at 98%. Will continue to monitor status.
--- NOTE | 2019-09-21 04:34 | NUR ---
PATIENT STILL REFUSING TO BE CLEANED OR MOVED
[2019-09-21] MEDS: ACCU-CHEK COMFORT CURVE STRIP VI SCH ×3 (05:37→18:23)
[2019-09-21] MEDS: CLINDAMYCIN 300MG IV 50 ML IV SCH ×2 (05:37→15:11)
--- NOTE | 2019-09-21 07:40 | NUR ---
CAME ON TO SHIFT WITH PATIENT SOILED WITH URINE AND STOOL. RECEIVED REPORT FROM NIGHT THAT PATIENT WAS REFUSING TO BE CLEANED. I TOLD THE PATIENT WE NEED TO CLEAN HIM UP, THAT THE STOOL AND URINE WILL CAUSE HIS SKIN TO BREAKDOWN. HE TOLD ME "NO", AND TO LEAVE HIM ALONE. HE SAID MAYBE LATER. I AGAIN EXPLAINED THE IMPORTANCE OF GETTING CLEANED, HE BEGAN TO GET ANGRY AND SAID "LEAVE ME ALONE"
[2019-09-21] MEDS: ALBUTEROL SULF HFA 90MCG INH 200DOSE IN SCH ×2 (07:51→15:41)
[2019-09-21] MEDS: Ensure HIGH Protein Chocolate 8oz Bottle PO SCH ×2 (08:00→18:00)
--- NOTE | 2019-09-21 08:15 | NUR ---
PATIENT DE-SATURATED TO 71 UPON ENTERING ROOM, RT IN ROOM WITH PATIENT WITH NON REBREATHER MASK REAPPLIED. SATURATION INCREASED TO 91.
[2019-09-21] MEDS ORDERED: FUROSEMIDE 40 MG/4 ML VIAL IV ONE (08:45)
[2019-09-21] MEDS: LORazepam 0.5 MG TAB PO PRN (09:08)
[2019-09-21] MEDS: ASCORBIC ACID 1,000 MG TAB PO SCH (10:00)
[2019-09-21] MEDS: CHOLECALCIFEROL (VITD3) 1,000UNIT=25mCg TAB PO SCH (10:00)
[2019-09-21] MEDS: PANTOPRAZOLE 40 MG TAB PO SCH (10:00)
[2019-09-21] MEDS: ZINC SULFATE 220mg CAP or TAB PO SCH (10:00)
[2019-09-21] MEDS: SERTRALINE HCL 50 MG TAB PO SCH (10:00)
--- NOTE | 2019-09-21 11:15 | NUR ---
PATIENT DESATURATING IN THE 60'S UPON ENTERING ROOM PATIENT STATES HE CANNOT BREATH. PATIENT IS ON 15 L NONREBREATHER MASK AND IS USING ACCESSORY MUSCLES TO BREATH. RT PAGED AND CAME TO ROOM. PATIENT BEING PLACED ON BIPAP BY RT
--- NOTE | 2019-09-21 12:10 | NUR ---
INFORMED DR ARZOLA OF PATIENTS COMPLAINT OF PAIN THROUGHOUT BODY AND PATIENTS BP OF ONLY 91/35. ORDERS RECEIVED FOR PAIN MED AND CARRIED OUT.
[2019-09-21] MEDS ORDERED: ACETAMINOPHEN IV 1000 MG/100ML (10MG/ML) IV ONE (12:15)
--- NOTE | 2019-09-21 12:20 | NUR ---
DR ARZOLA BEDSIDE WITH PATIENT. PATIENT IS ALERT AND ORIENTED AND WANTS TO BE DNR STATUS. DR ARZOLA EDUCATED PATIENT OF DNR STATUS, ALL QUESTIONS AND CONCERNS ADDRESSED. DR ARZOLA, RN PALAK HERMAN AND DAVID WOODS ALL WITNESS TO PATIENT REQUESTING TO BE DNR STATUS. FORMS SIGNED AND PLACED IN PATIENT FILE.
--- NOTE | 2019-09-21 13:05 | NUR ---
DR ARZOLA SPOKE WITH PATIENTS SON, MEENAKSHI, OVER PHONE. PATIENT CURRENTLY LIVES WITH MEENAKSHI. MEENAKSHI IS AWARE OF DNR STATUS. PER DR ARZOLA, ONLY SPEAK WITH SON MEENAKSHI.
[2019-09-21 13:21] LABS: Basophils # (auto) 0.1 10 ^3/uL (0-0.2)
[2019-09-21 13:23] LABS: Basophils % (auto) 0.3 % (0.0-2.0); Eosinophils # (auto) 0.1 10 ^3/uL (0-0.8); Eosinophils % (auto) 0.2 % (0.0-7.0); Hematocrit 53.4 % (41.0-53.0); Hemoglobin 16.4 g/dL (13.5-17.5); Lymphocytes # (auto) 0.4 10 ^3/uL (0.4-5.4); Lymphocytes % (auto) 1.3 % (10.0-50.0); Mean Corpuscular Hemoglobin 30.9 pg (28.0-32.0); Mean Corpuscular Hgb Conc. 30.7 g/dL (32.0-36.0); Mean Corpuscular Volume 100.7 fL (80.0-100.0); Monocytes # (auto) 0.3 10 ^3/uL (0-1.3); Monocytes % (auto) 1.1 % (0.0-12.0); Neutrophils # (auto) 28.6 10 ^3/uL (1.6-8.6); Neutrophils % (auto) 97.1 % (37.0-80.0); Platelet Count (auto) 108 10^3/uL (140-450); Red Blood Cells 5.31 10^6/uL (4.5-5.90); Red Cell Distribution Width 14.9 % (11.8-14.3); White Blood Cell 29.4 10^3/uL (4.4-10.8)
[2019-09-21 13:39] LABS: Calcium 9.4 mg/dL (8.5-10.1); Potassium 3.6 mmol/L (3.5-5.1)
[2019-09-21 13:41] LABS: BUN/Creatinine Ratio 31.8
[2019-09-21] MEDS ORDERED: D5W/SOD CHLO 0.9% 1,000 ML IV SCH (14:00)
--- NOTE | 2019-09-21 14:15 | NUR ---
I ASKED THE PATIENT IF IT WOULD BE OK IF I HELD THE PHONE TO HIS EAR SO HE COULD TALK TO HIS FAMILY, PATIENT SAID NO AND SHOOK HIS HEAD NO. I CONFIRMED WITH HIM AGAIN, AND HE AGAIN SAID NO WHEN I ASKED HIM IF HE WANTS TO TALK TO HIS FAMILY.
--- NOTE | 2019-09-21 16:10 | NUR ---
LEFT MESSAGE FOR PATIENTS SONMEENAKSHI, TO PROVIDE UPDATE ON PATIENT.
--- NOTE | 2019-09-21 16:45 | NUR ---
LEFT ANOTHER MESSAGE FOR PATIENTS SON, MEENAKSHI, TO PROVIDE UPDATE ON PATIENT. PATIENTS BP IS DROPPING AND BREATHING IS BECOMING MORE LABORED.
--- NOTE | 2019-09-21 18:10 | NUR ---
PATIENTS BLOOD SUGAR 21, DEXTROSE ADMINISTERED AND WILL RECHECK BLOOD SUGAR
--- NOTE | 2019-09-21 18:35 | NUR ---
BLOOD SUGAR RECHECK OF 98. WILL CONTINUE TO MONITOR.
--- NOTE | 2019-09-21 18:35 | NUR ---
PATIENTS GRANDDAUGHTER, ELADIA, CALLED TO SPEAK WITH PATIENT. I INFORMED HER THE PATIENT REQUESTED NOT TO SPEAK WITH ANY FAMILY. I ALSO INFORMED HER THAT I HAVE LEFT A COUPLE MESSAGES FOR MEENAKSHI, (ELADIA'S DAD) BUT HAVE NOT HEARD BACK FROM HIM. ELADIA WILL CALL MEENAKSHI AND HAVE HIM CALL IN.
--- NOTE | 2019-09-21 19:05 | NUR ---
PATIENTS SON, MEENAKSHI, CALLED. I INFORMED HIM OF THE PATIENTS STATUS AND TOLD HIM WE WERE NOT SURE IF HE WOULD MAKE IT THROUGH THE NIGHT. I INFORMED HIM, HE, OR ANOTHER FAMILY MEMBER CAN COME TO THE HOSPITAL TO SEE THE PATIENT. MEENAKSHI SAID HE WOULD BE HERE TONIGHT.
--- NOTE | 2019-09-21 19:20 | NUR ---
INFORMED LOUANN, IN SECURITY, THAT MEENAKSHI GUARDADO WOULD BE HERE TONIGHT TO SEE THE PATIENT.
--- NOTE | 2019-09-21 19:30 | NUR ---
Opening Shift Note Patient respiratory status currently at 20 RR per min w/ saturation in the 90's. Patient HOB at 30 degrees, bed locked in lowest position, no s/s or respiratory stress at this time and no pain noted. Patient is alert to name and responds by opening eyes half way. Continuing patient care and monitoring.
--- NOTE | 2019-09-21 20:30 | NUR ---
Patient's Son Nehemiah on Unit Nehemiah is currently visiting patient. Son requested technical business analyst via telephone.
--- NOTE | 2019-09-21 20:40 | NUR ---
Treatment Plant Mechanic called and Spoke w/ Patient's Son Nehemiah at bedside via telephone.
--- NOTE | 2019-09-21 20:50 | NUR ---
Patient's Son Nehemiah Left Unit Per Nehemiah, he wants to possibly visit tomorrow if patient is still here. Nehemiah said he will keep in contact with hospital about re-visiting is able to.
--- NOTE | 2019-09-21 21:20 | NUR ---
Patient in [place]yst[place] - Head Men'S Golf Coach Called Unit to Notify at This Time Entered room to assess patient for a pulse; no pulse was found; auscultated for apical pulse and no pulse was found. EKG was then done and hospitalist has been notified at this time. Addendum: 09/21/19 at 2350 by JANE DIAS RN RN Dr. Graham in Unit and at bedside at 2217 and has pronounced patient to be 2138 (9:39pm). Addendum: 09/21/19 at 2357 by JANE DIAS RN RN [facility] at was notified at 2222; [employer] was notified at 2230 Spoke with Cake [employer]ster Merna Hampton and she said "Body released." No further instruction needed and no case number needed for COVID-19 patient.
--- NOTE | 2019-09-21 22:29 | NUR ---
Left Voicemail Message w/ Nehemiah (Patient's Son) Left call back number for Nehemiah to return call as soon as possible. Addendum: 09/22/19 at 0009 by JANE DIAS RN RN Nehemiah called back at 2300 and informed him about his father's passing. Family aware and given information on mortuaries and cemeteries for the next step. Family will keep in contact when they have chosen a place for patient.
--- NOTE | 2019-09-21 23:51 | NUR ---
[facility] Notified Spoke with Ivania from [facility] at 2223. Given .
--- NOTE | 2019-09-22 02:30 | NUR ---
POST-MORTEM CARE PROVIDED AT THIS TIME AND PLACED IN BODY BAG APPROPRIATELY.
--- NOTE | 2019-09-22 04:15 | NUR ---
[facility] CONTACTED FOR [facility] HOLD OF PATIENT SPOKE W/ REYES FROM [facility] AND NOW CURRENTLY WAITING FOR ETA. Addendum: 09/22/19 at 0448 by JANE DIAS RN RN BRYANNA FROM [facility] HAS CALLED AND GAVE ETA FOR [facility] FOR 5:30AM. Addendum: 09/22/19 at 0551 by JANE DIAS RN RN Released patient to Keon from [facility] at 0535 am.
[2019-09-22] MEDS ORDERED: FUROSEMIDE 40 MG/4 ML VIAL IV SCH (10:00)
== END 2019-09-21 21:39 | disposition expired | DRG 720 ==
LOC: EDBD 11:18 → ER 11:18 → TELE 11:19 → TELE-EAST 18:20
PROVIDERS: ADMIT Hospitalist; ATTEND Internal Medicine Nephrology
PROC: 5A09357 Assistance with Respiratory Ventilation, Less than 24 Consecutive Hours, Continuous Positive Airway Pressure (ICD-10-PCS; principal; 2019-09-21)
DX: A41.89 Other specified sepsis (principal); U07.1 COVID-19; J96.01 Acute respiratory failure with hypoxia; E44.0 Moderate protein-calorie malnutrition; E11.21 Type 2 diabetes mellitus with diabetic nephropathy; E11.65 Type 2 diabetes mellitus with hyperglycemia; B18.2 Chronic viral hepatitis C; E87.6 Hypokalemia; E87.1 Hypo-osmolality and hyponatremia; J12.89 Other viral pneumonia; E11.40 Type 2 diabetes mellitus with diabetic neuropathy, unspecified; E78.5 Hyperlipidemia, unspecified; E87.2 Acidosis; N18.3 Chronic kidney disease, stage 3 (moderate); I25.5 Ischemic cardiomyopathy; D69.6 Thrombocytopenia, unspecified; E87.3 Alkalosis; J98.11 Atelectasis; R65.20 Severe sepsis without septic shock; Z68.1 Body mass index [BMI] 19.9 or less, adult; I50.9 Heart failure, unspecified; E87.0 Hyperosmolality and hypernatremia; G43.909 Migraine, unspecified, not intractable, without status migrainosus; G89.29 Other chronic pain; I13.0 Hypertensive heart and chronic kidney disease with heart failure and stage 1 through stage 4 chronic kidney disease, or unspecified chronic kidney disease; E11.22 Type 2 diabetes mellitus with diabetic chronic kidney disease; I25.10 Atherosclerotic heart disease of native coronary artery without angina pectoris; I48.91 Unspecified atrial fibrillation; Z66 Do not resuscitate; Z91.19 Patient's noncompliance with other medical treatment and regimen; N17.0 Acute kidney failure with tubular necrosis; Z79.4 Long term (current) use of insulin; Z79.899 Other long term (current) drug therapy; Z80.1 Family history of malignant neoplasm of trachea, bronchus and lung; Z82.49 Family history of ischemic heart disease and other diseases of the circulatory system; Z83.3 Family history of diabetes mellitus; Z87.11 Personal history of peptic ulcer disease
CPT/HCPCS: 36415; 36600; 71045; 80048; 80053; 80061; 80307; 81001; 82728; 82805; 82962; 83036; 83605; 83615; 83735; 83880; 84100; 84484; 85007; 85025; 85027; 85379; 85610; 85730; 86141; 87040; 87070; 87086; 87804; 87880; 93005; 93970; 94640; 94660; 96365; 96366; 96368; 96372; 96375; 96376; 99291; G0378; J0131; J0696; J1100; J1815; J2185; J2405; J2543; J3480; J3490; J7042